=== PATIENT | female | born 1935 | race Caucasian/White ===

== ENCOUNTER 2023-11-02 16:08 | Emergency (ER) | payer OTHER, SELFPAY ==
[2023-11-02 16:10] VITALS: BP 108/48
[2023-11-02 18:32] VITALS: BP 120/51
[2023-11-02 18:39] VITALS: BP 125/62
[2023-11-02 19:00] VITALS: BP 100/55
--- NOTE | 2023-11-02 19:09 | ED.GENMED ---
History of Present Illness
General
Chief Complaint: Blood Pressure Problem
Source: patient
Exam Limitations: none
Time Seen by Provider: 11/02/23 18:55
History of Present Illness
History of Present Illness:
See MDM
Past History
Past History
ED Past Medical History: HTN, Hypercholesterolemia, Hypothyroidism and Other (Spinal stenosis and scoliosis)
ED Past Surgical History: Appendectomy, Gynecological (Hysterectomy) and Orthopedic (Bilateral knee replacement, left hip replacement, spinal stimulator)
Social History
Tobacco: Non-smoker
Alcohol: None
Drug: None
Personal:
Living: with family
Employment: Retired
Phy Exam
Physical Exam
Physical Exam:
See MDM
Course
Orders/Labs/Results
Orders:
Orders
11/02/23 16:13
Electrocardiogram (*1) Urgent
Reason for Study: Vertigo / Dizzy
EKG- Treatment ONCE
11/02/23 19:16
CMP [Comprehensive Metabolic Panel] Urgent
Complete Blood Count/With Diff Urgent
Urinalysis Reflex To Culture Urgent
Date Specimen was Collected: 11/02/23
Time Specimen was Collected: 19:13
Urine Microscopic Reflex Cult Urgent
Urine Culture Urgent
VONDA Source: U
Specimen Description:
Date Specimen was Collected: 11/02/23
Time Specimen was Collected: 19:13
11/02/23 20:13
CefTRIAXone [Rocephin] 1,000 mg IV NOW STA
Abnormal Lab Results
11/02/23
19:16
WBC 13.4 H 10^3/uL
(4.8-10.8)
RBC 2.44 L 10^6/uL
(4.20-5.40)
Hgb 8.7 L g/dL
(12.0-16.0)
Hct 24.5 L %
(37.0-47.0)
MCV 100.4 H fL
(81.0-99.0)
MCH 35.7 H pg
(27.0-31.0)
Plt Count 127 L 10^3/uL
(130-400)
MPV 11.0 H fL
(7.4-10.4)
Abs Immat Gran (auto) 0.1 H 10^3/uL
(0-0.05)
Absolute Neuts (auto) 12.0 H 10^3/uL
(1.4-6.5)
Absolute Lymphs (auto) 0.3 L 10^3/uL
(1.2-3.4)
Absolute Monos (auto) 1.0 H 10^3/uL
(0.1-0.6)
Neutrophils % 89.4 H %
(42.2-75.2)
Lymphocytes % 1.9 L %
(20.5-51.1)
Sodium 133 L mmol/L
(135-145)
Carbon Dioxide 20 L mmol/L
(22-30)
BUN 53 H mg/dl
(7-17)
Creatinine 2.3 H mg/dL
(0.6-1.0)
Glucose 116 H mg/dl
(70-99)
AST 40 H U/L
(14-36)
Total Protein 5.8 L g/dl
(6.3-8.2)
Ur Occult Blood Reflex Trace A
(Negative)
Leukocyte Esterase Rfl 2+ A
(Negative)
Urine WBC (Reflex) >100 A /HPF
(0-5)
Urine Albumin (Reflex) 2+ A
(Neg - Trace)
11/02/23 19:16
11/02/23 19:16
Vital Signs
Initial and Last Documented VS:
Initial Vital Signs
Temp Pulse Resp BP Pulse Ox
99.3 F 66 18 108/48 95
11/02/23 16:10 11/02/23 16:10 11/02/23 16:10 11/02/23 16:10 11/02/23 16:10
Last Documented Vital Signs
Temp Pulse Resp BP Pulse Ox
99.3 F 73 24 113/50 93
11/02/23 16:10 11/02/23 20:00 11/02/23 20:00 11/02/23 20:00 11/02/23 20:00
MDM/Problems Addressed
Differential Diagnosis Includes:
HPI and MDM Narrative:
88-year-old female presenting with lightheadedness. Patient was taking her blood pressure noted that she had a couple readings around 100 systolic. Patient got concerned and came to the emergency department. She states that the dizziness is
random and not necessarily worse with exertion or position. When asked to explain the dizziness, she denies vertiginous symptoms. She states it is more like a lightheadedness feeling. This is also associated with increased urinary frequency and
burning. Patient is concerned she could have a UTI
Physical exam
General: Well appearing and non-toxic
HEENT: protecting airway
Neck: appears supple
CV: No evidence of cyanosis. Regular rate and rhythm
Resp: No accessory muscle use. Lungs clear
Abd: Non-distended and nontender
Extremities: No deformities
Neuro: alert
Psych: Normal affect
Skin: Intact
Problems Addressed including Acute and Chronic Conditions affecting care:
1. Lightheadedness
Acuity: acute
Prognosis: stable
Details: Likely in the setting of polypharmacy versus UTI. Will obtain basic blood work
2. Increased urinary frequency
Acuity: acute
Prognosis: stable
Details: Will obtain urinalysis to assess for UTI
Updates
Urine consistent with urinary tract infection. Will give dose of Rocephin. I discussed my concern that her creatinine has doubled. I suggested admission. Patient acknowledges my concerns but does not want a be admitted. Will start antibiotics
but discussed she must call her primary care doctor tomorrow to have this reassessed
Differential Diagnosis (but not limited to): UTI, polypharmacy, dehydration
Testing considered: Troponin but she denies chest pain or shortness of breath
Drug therapy (if applicable): OTC meds, please see d/c instruction regarding Rx drugs
Amount and/or Complexity of Data Reviewed
Clinical info obtained from: Patient
External data reviewed: N/A
Labs I independently reviewed (but not limited to): Elevated creatinine
Radiology: N/A
Pulse Ox: not hypoxic
EKG independently reviewed: Sinus rhythm, sinus arrhythmia, normal axis, no STEMI
Tracer Lathe Set Up Operator: Sinus rhythm
Critical Care: N/A
Risk of Complication:
Social Determinants of health: Good social support
Discussed with other providers: N/A
Escalation of Care includes Admit/Obs: After being observed in the Emergency Department, pt stable for discharge.
Occasional wrong word or 'sound a like' substitutions may have occurred due to the inherent limitations of voice recognition software. Read the chart carefully and recognize, using context, where substitutions have occurred.
*Critical Care Note
Total Time (30-74mins, 75-104mins- exclusive of procedures): Not Applicable
ED Attending Note
-
Portions of this chart may have been created with voice recognition software.� Occasional wrong word or��sound alike� substitutions may have occurred due to the inherent limitations of voice recognition software.
Discharge Plan
Departure
Patient Disposition: Home (Routine Discharge)
Date of Disposition: 11/02/23
Time of Disposition: 20:15
Patient with high blood pressure during this ER visit?: No
Discharge Problem:
Acute UTI, DAVID (acute kidney injury)
Instructions: Urinary Tract Infection, Adult ED
Prescriptions:
New
cephalexin 500 mg capsule
500 mg PO BID 5 Days Qty: 10 0RF
No Action
carvedilol 25 mg Tablet
25 mg PO BID
sulfasalazine 500 mg Tablet
1,000 mg PO TID
terazosin 1 mg Capsule
1 mg PO HS
leflunomide 20 mg Tablet
20 mg PO DAILY
levothyroxine 50 mcg Tablet
50 mcg PO DAILY
pravastatin 20 mg Tablet
20 mg PO DAILY
oxycodone 5 mg Tablet
5 mg PO Q8H PRN (Reason: moderate-severe pain)
Patient Comments:
11/14/2021: last filled 09/12/21, 90 tabs for [facility] days from [facility]
lisinopril 20 mg Tablet
20 mg PO BID
furosemide 40 mg Tablet
40 mg PO DAILY
Eliquis 5 mg Tablet
5 mg PO BID
omeprazole 20 mg Capsule,Delayed Release(Dr/Ec)
20 mg PO DAILY
prednisone 5 mg Tablet
5 mg PO DAILY 30 Days Qty: 30 0RF
tamsulosin 0.4 mg Capsule
0.4 mg PO DAILY 30 Days Qty: 30 2RF
Referrals:
Ada Soliz MD [Family Provider] -
Activity Restrictions/Additional Instructions:
Please return for any worsening symptoms.
You may return at any time if you have further concerns.
Please call your doctor first thing tomorrow. Please indicate that your kidney levels have doubled. This needs to be rechecked. Please also discuss your low blood pressure. Until you are evaluated by your doctor, please decrease your lisinopril
to 10 mg twice a day.
Thank you for choosing [facility].
Interventions
Interventions:
*Risk Screen - Suicide Last Done: 11/02/23 18:40
*General Assessment Last Done: 11/02/23 16:10
*Neglect/Abuse Screening Last Done: 11/02/23 18:40
*ED COVID-19 Vaccine History Last Done: 11/02/23 16:10
ED- Cardiac Assessment Last Done: 11/02/23 18:40
ED- Neurological Assessment Last Done: 11/02/23 18:40
ED- Pulmonary Assessment Last Done: 11/02/23 18:40
Discharge Date and Time
Print Language: ITALIAN
[2023-11-02 19:21] LABS: % Basophils 0.3 % (0-2); % Eosinophils 0.2 % (0-6); % Immature Granulocytes 0.5 % (0-0.5); % Lymphocytes 1.9 % (20.5-51.1); % Monocytes 7.7 % (1.7-9.3); % Neutrophils 89.4 % (42.2-75.2); Absolute Immature Granulocytes 0.1 10^3/uL (0-0.05); Absolute Lymphocytes 0.3 10^3/uL (1.2-3.4); Hematocrit 24.5 % (37.0-47.0); Hemoglobin 8.7 g/dL (12.0-16.0); Mean Corp Hgb Conc. 35.5 g/dL (33.0-37.0); Mean Corpuscular Hgb 35.7 pg (27.0-31.0); Mean Corpuscular Volume 100.4 fL (81.0-99.0); Nucleated Red Blood Cells % 0 %; Platelet Count 127 10^3/uL (130-400); Red Blood Cell Count 2.44 10^6/uL (4.20-5.40); Red Cell Dist. Width 13.5 % (11.5-14.5); White Blood Cell Count 13.4 10^3/uL (4.8-10.8)
[2023-11-02 19:22] LABS: Urine Albumin 2+ (Neg - Trace); Urine Bilirubin Negative (Negative); Urine Character Very Cloudy (Clear); Urine Color Yellow; Urine Glucose Negative (Negative); Urine Ketone Negative (Negative); Urine Leukocyte 2+ (Negative); Urine Nitrite Negative (Negative); Urine Occult Blood Trace (Negative); Urine Specific Gravity 1.015 (<1.030); Urine Urobilinogen Negative (Neg - 1+)
[2023-11-02 19:29] LABS: Urine Red Blood Cell 0-2 /HPF (0-2); Urine White Cell >100 /HPF (0-5)
[2023-11-02 19:30] VITALS: BP 125/47
[2023-11-02 19:36] LABS: ALT (SGPT) 21 U/L (0-35); AST (SGOT) 40 U/L (14-36); Albumin 3.9 g/dl (3.5-5.0); Alkaline Phosphatase 48 U/L (38-126); Blood Urea Nitrogen 53 mg/dl (7-17); Calcium 8.9 mg/dl (8.4-10.2); Carbon Dioxide 20 mmol/L (22-30); Chloride 101 mmol/L (98-107); Glucose 116 mg/dl (70-99); Potassium 3.5 mmol/L (3.5-5.1); Sodium 133 mmol/L (135-145); Total Bilirubin 0.9 mg/dl (0.2-1.3); Total Protein 5.8 g/dl (6.3-8.2); eGFR 19.94
[2023-11-02 20:00] VITALS: BP 113/50
[2023-11-02] MEDS: ROCEPHIN 1000 MG IV (20:19)
== END 2023-11-02 20:47 | disposition home or self-care (01) ==
LOC: EMR 16:08
PROVIDERS: Emergency Medicine; EMERGENCY PHYSICIAN Student in an Organized Health Care Education/Training Program; FAMILY PHYSICIAN Family Medicine
DX: N39.0 Urinary tract infection, site not specified (principal); R42 Dizziness and giddiness; N17.9 Acute kidney failure, unspecified; I10 Essential (primary) hypertension; E03.9 Hypothyroidism, unspecified; E78.00 Pure hypercholesterolemia, unspecified; M48.00 Spinal stenosis, site unspecified; M41.9 Scoliosis, unspecified; Z96.653 Presence of artificial knee joint, bilateral; Z96.642 Presence of left artificial hip joint; Z79.01 Long term (current) use of anticoagulants
CPT/HCPCS: 99284; 96374; 80053; 81003; 81015; 85025; 87077; 87086; 93005

== ENCOUNTER 2024-01-31 09:29 | Emergency (ER) | payer OTHER, SELFPAY ==
[2024-01-31] VITALS (12 sets, daily range): BP systolic 144–204; BP diastolic 39–72; PULSE 73; O2SAT 95; BMI 25.1
--- NOTE | 2024-01-31 09:48 | ED.GENMED ---
History of Present Illness
<Garland Bassett PA-C - Last Filed: 01/31/24 16:20>
General
Chief Complaint: Back Pain
Source: patient
Exam Limitations: none
Time Seen by Provider: 01/31/24 09:34
History of Present Illness
History of Present Illness:
88-year-old female presents with complaints of onset of lower back pain overnight last night. The pain radiates across the lower back but does not go down the legs. No associated bowel or bladder dysfunction. No known injury. She has a history
of scoliosis. She typically ambulates with a walker. She is from home where she lives with her . She was unable to ambulate today secondary to the pain. She took a total of 20 mg of oxycodone at home prior to coming here without relief.
Past History
<LIZZ Alexis Last Filed: 01/31/24 16:20>
Past History
ED Past Medical History: HTN, Hypercholesterolemia, Hypothyroidism and Other (Spinal stenosis and scoliosis)
ED Past Surgical History: Appendectomy, Gynecological (Hysterectomy) and Orthopedic (Bilateral knee replacement, left hip replacement, spinal stimulator)
Social History
Tobacco: Non-smoker
Alcohol: None
Drug: None
Personal:
Living: with family
Employment: Retired
Phy Exam
<LIZZ Alexis Last Filed: 01/31/24 16:20>
Physical Exam
Physical Exam:
General: Uncomfortable appearing female no acute respiratory distress
HEENT: Normocephalic atraumatic
Heart: Regular rate and rhythm no murmurs
Lungs: Clear no wheeze
Abdomen is soft nontender nondistended no guarding rebound
Musculoskeletal exam: Lower lumbar spine is tender
Neurologic: Good sensation bilateral lower extremities.
Vascular: 2+ dorsalis pedis pulse bilateral feet
Course
<Garland Bassett PA-C - Last Filed: 01/31/24 16:20>
Orders/Labs/Results
Orders:
Orders
01/31/24 09:47
diazePAM [Valium Injection] 5 mg IV NOW STA
CR Lumbar Spine 2 Or 3 Views Urgent
Comment:
Reason For Exam: back pain
01/31/24 10:07
diazePAM [Valium Injection] 5 mg IM NOW STA
01/31/24 10:09
Ketorolac [Toradol] 15 mg IM NOW STA
01/31/24 10:19
Complete Blood Count/With Diff Urgent
Comprehensive Metabolic Panel Urgent
01/31/24 12:49
PT Consult [Pt Eval And Treat] Urgent
Activity Level: Ambulate
01/31/24 13:29
Case Management Consult ONCE
Case Management Consult: Discharge Planning
01/31/24 17:10
COVID-19 Antigen Urgent
Source: Nasal Swab
Abnormal Lab Results
01/31/24
10:19
RBC 2.68 L 10^6/uL
(4.20-5.40)
Hgb 9.7 L g/dL
(12.0-16.0)
Hct 28.4 L %
(37.0-47.0)
MCV 106.0 H fL
(81.0-99.0)
MCH 36.2 H pg
(27.0-31.0)
Plt Count 123 L 10^3/uL
(130-400)
MPV 11.5 H fL
(7.4-10.4)
Absolute Lymphs (auto) 0.3 L 10^3/uL
(1.2-3.4)
Neutrophils % 86.7 H %
(42.2-75.2)
Lymphocytes % 4.0 L %
(20.5-51.1)
BUN 57 H mg/dl
(7-17)
Creatinine 1.4 H mg/dL
(0.6-1.0)
Alkaline Phosphatase 35 L U/L
(38-126)
01/31/24 10:19
01/31/24 10:19
Vital Signs
Initial and Last Documented VS:
Initial Vital Signs
Temp Pulse Resp BP Pulse Ox
98.8 F 84 14 204/72 92
01/31/24 09:31 01/31/24 09:31 01/31/24 09:31 01/31/24 09:31 01/31/24 09:31
Last Documented Vital Signs
Temp Pulse Resp BP Pulse Ox
98.8 F 81 20 168/59 94
01/31/24 09:31 01/31/24 16:15 01/31/24 16:15 01/31/24 16:00 01/31/24 16:15
<Fracisco Wakefield PA-C - Last Filed: 01/31/24 17:39>
Orders/Labs/Results
Orders:
Orders
01/31/24 09:47
diazePAM [Valium Injection] 5 mg IV NOW STA
CR Lumbar Spine 2 Or 3 Views Urgent
Comment:
Reason For Exam: back pain
01/31/24 10:07
diazePAM [Valium Injection] 5 mg IM NOW STA
01/31/24 10:09
Ketorolac [Toradol] 15 mg IM NOW STA
01/31/24 10:19
Complete Blood Count/With Diff Urgent
Comprehensive Metabolic Panel Urgent
01/31/24 12:49
PT Consult [Pt Eval And Treat] Urgent
Activity Level: Ambulate
01/31/24 13:29
Case Management Consult ONCE
Case Management Consult: Discharge Planning
01/31/24 17:10
COVID-19 Antigen Urgent
Source: Nasal Swab
Abnormal Lab Results
01/31/24
10:19
RBC 2.68 L 10^6/uL
(4.20-5.40)
Hgb 9.7 L g/dL
(12.0-16.0)
Hct 28.4 L %
(37.0-47.0)
MCV 106.0 H fL
(81.0-99.0)
MCH 36.2 H pg
(27.0-31.0)
Plt Count 123 L 10^3/uL
(130-400)
MPV 11.5 H fL
(7.4-10.4)
Absolute Lymphs (auto) 0.3 L 10^3/uL
(1.2-3.4)
Neutrophils % 86.7 H %
(42.2-75.2)
Lymphocytes % 4.0 L %
(20.5-51.1)
BUN 57 H mg/dl
(7-17)
Creatinine 1.4 H mg/dL
(0.6-1.0)
Alkaline Phosphatase 35 L U/L
(38-126)
01/31/24 10:19
01/31/24 10:19
Vital Signs
Initial and Last Documented VS:
Initial Vital Signs
Temp Pulse Resp BP Pulse Ox
98.8 F 84 14 204/72 92
01/31/24 09:31 01/31/24 09:31 01/31/24 09:31 01/31/24 09:31 01/31/24 09:31
Last Documented Vital Signs
Temp Pulse Resp BP Pulse Ox
98.8 F 81 20 168/59 94
01/31/24 09:31 01/31/24 16:15 01/31/24 16:15 01/31/24 16:00 01/31/24 16:15
<Garland Bassett PA-C - Last Filed: 01/31/24 16:20>
MDM/Problems Addressed
Differential Diagnosis Includes:
Low back pain. This is acute. Consider degenerative disc disease versus compression fracture. No leg symptoms or neurologic symptoms or red flags to suggest cauda equina. She has good pulses to the feet. Do not suspect vascular issue
X-rays pending will attempt to manage this through IV. Labs pending
<Fracisco Wakefield PA-C - Last Filed: 01/31/24 17:39>
*Critical Care Note
Total Time (30-74mins, 75-104mins- exclusive of procedures): Not Applicable
<Fracisco Wakefield PA-C - Last Filed: 01/31/24 17:39>
Patient Management
Escalation/DeEscalation of care consider admission/obs:
Patient accepted at [facility]. Rx for valium given to patient for PRN pain. Awaiting transport.
<Garland Bassett PA-C - Last Filed: 01/31/24 16:20>
Update Note
Update Note:
X-ray shows no obvious fracture. Patient in significant pain despite 20 mg of oxycodone, Valium and Toradol. Evaluated by physical therapy. Unable to safely ambulate. Case management consulted
ED Attending Note
<Garland Bassett PA-C - Last Filed: 01/31/24 16:20>
-
Portions of this chart may have been created with voice recognition software.� Occasional wrong word or��sound alike� substitutions may have occurred due to the inherent limitations of voice recognition software.
Discharge Plan
Departure
Patient Disposition: Assisted Living
Date of Disposition: 01/31/24
Time of Disposition: 16:19
Patient with high blood pressure during this ER visit?: No
Discharge Problem:
Back pain
Instructions: Low Back Pain (DC)
Prescriptions:
New
diazepam [Valium] 5 mg tablet
5 mg PO BID PRN (Reason: muscle spasm) Qty: 10 0RF
No Action
carvedilol 25 mg Tablet
25 mg PO BID
sulfasalazine 500 mg Tablet
1,000 mg PO TID
terazosin 1 mg Capsule
1 mg PO HS
leflunomide 20 mg Tablet
20 mg PO DAILY
levothyroxine 50 mcg Tablet
50 mcg PO DAILY
pravastatin 20 mg Tablet
20 mg PO DAILY
oxycodone 5 mg Tablet
5 mg PO Q8H PRN (Reason: moderate-severe pain)
Patient Comments:
11/14/2021: last filled 09/12/21, 90 tabs [facility]
lisinopril 20 mg Tablet
20 mg PO BID
furosemide 40 mg Tablet
40 mg PO DAILY
Eliquis 5 mg Tablet
5 mg PO BID
omeprazole 20 mg Capsule,Delayed Release(Dr/Ec)
20 mg PO DAILY
prednisone 5 mg Tablet
5 mg PO DAILY 30 Days Qty: 30 0RF
tamsulosin 0.4 mg Capsule
0.4 mg PO DAILY 30 Days Qty: 30 2RF
cephalexin 500 mg capsule
500 mg PO BID 5 Days Qty: 10 0RF
Referrals:
Ada Soliz MD [Family Provider] -
Activity Restrictions/Additional Instructions:
Please seek further treatment at rehab facility.
Interventions
Interventions:
*Risk Screen - Suicide Last Done: 01/31/24 09:31
*General Assessment Last Done: 01/31/24 09:31
*Neglect/Abuse Screening Last Done: 01/31/24 09:31
ED- Fall Risk Assessment Last Done: 01/31/24 09:31
*ED COVID-19 Vaccine History Last Done: 01/31/24 09:31
ED-Musculoskeletal Assessment Last Done: 01/31/24 11:59
Discharge Date and Time
Print Language: ALBANIAN
[2024-01-31] MEDS: VALIUM INJECTION 5 MG IM (10:14)
[2024-01-31] MEDS: TORADOL 15 MG IM (10:16)
[2024-01-31 10:31] LABS: % Basophils 0.4 % (0-2); % Eosinophils 0.8 % (0-6); % Immature Granulocytes 0.3 % (0-0.5); % Monocytes 7.8 % (1.7-9.3); % Neutrophils 86.7 % (42.2-75.2); Absolute Eosinophils 0.1 10^3/uL (0-0.7); Absolute Lymphocytes 0.3 10^3/uL (1.2-3.4); Absolute Monocytes 0.6 10^3/uL (0.1-0.6); Absolute Neutrophils 6.3 10^3/uL (1.4-6.5); Hematocrit 28.4 % (37.0-47.0); Hemoglobin 9.7 g/dL (12.0-16.0); Mean Corp Hgb Conc. 34.2 g/dL (33.0-37.0); Mean Corpuscular Hgb 36.2 pg (27.0-31.0); Mean Platelet Volume 11.5 fL (7.4-10.4); Nucleated Red Blood Cells % 0 %; Platelet Count 123 10^3/uL (130-400); Red Blood Cell Count 2.68 10^6/uL (4.20-5.40); Red Cell Dist. Width 12.2 % (11.5-14.5); White Blood Cell Count 7.3 10^3/uL (4.8-10.8)
[2024-01-31 10:44] LABS: ALT (SGPT) 19 U/L (0-35); AST (SGOT) 32 U/L (14-36); Albumin 4.5 g/dl (3.5-5.0); Alkaline Phosphatase 35 U/L (38-126); Blood Urea Nitrogen 57 mg/dl (7-17); Calcium 9.6 mg/dl (8.4-10.2); Carbon Dioxide 22 mmol/L (22-30); Chloride 102 mmol/L (98-107); Estimated Creatinine Clearance 23 ml/min; Glucose 96 mg/dl (70-99); Potassium 3.8 mmol/L (3.5-5.1); Sodium 141 mmol/L (135-145); Total Bilirubin 1.1 mg/dl (0.2-1.3); Total Protein 6.4 g/dl (6.3-8.2); eGFR 36.19
--- NOTE | 2024-01-31 15:36 | CM ---
Spoke with patient and who was at bedside. Consult placed for placement. CM introduced self and role. CM discussed PT's recommendations. Patient and agreeable to referrals being placed at SNFs.
Referrals sent to:
[facility]
--- NOTE | 2024-01-31 16:59 | CM ---
Auth no. : [id number]
Verbal update hotline: for 5 days, including today, 01/30.
NRD: 02/03.
Mar[facility] at [facility] made aware.
REPORT:
Nursing report phone numbers are: [phone] and fax is [phone]
[2024-01-31 17:41] LABS: COVID-19 Antigen Negative (Negative)
[2024-01-31] MEDS: ROXICODONE 5 MG PO (19:09)
== END 2024-01-31 19:39 ==
LOC: EMR 09:29
PROVIDERS: Physician Assistant; Physician Assistant Medical; EMERGENCY PHYSICIAN Student in an Organized Health Care Education/Training Program; FAMILY PHYSICIAN Family Medicine
DX: M54.50 Low back pain, unspecified (principal); I10 Essential (primary) hypertension; E78.00 Pure hypercholesterolemia, unspecified; E03.9 Hypothyroidism, unspecified; Z90.49 Acquired absence of other specified parts of digestive tract; Z90.710 Acquired absence of both cervix and uterus; Z96.653 Presence of artificial knee joint, bilateral; Z96.642 Presence of left artificial hip joint; Z96.82 Presence of neurostimulator
CPT/HCPCS: 96372; 99284; 72100; 80053; 85025; 87811

== ENCOUNTER 2024-02-02 15:37 | Inpatient (IN) | payer OTHER, SELFPAY ==
[2024-02-02] VITALS (57 sets, daily range): BP systolic 69–145; BP diastolic 36–75; BMI 25.6; BMI 25.5
[2024-02-02 10:17] LABS: % Basophils 0.5 % (0-2); % Eosinophils 0.2 % (0-6); % Immature Granulocytes 0.9 % (0-0.5); % Lymphocytes 1.8 % (20.5-51.1); % Monocytes 4.1 % (1.7-9.3); % Neutrophils 92.5 % (42.2-75.2); Absolute Basophils 0.1 10^3/uL (0-0.2); Absolute Immature Granulocytes 0.1 10^3/uL (0-0.05); Absolute Lymphocytes 0.2 10^3/uL (1.2-3.4); Absolute Monocytes 0.5 10^3/uL (0.1-0.6); Absolute Neutrophils 10.2 10^3/uL (1.4-6.5); Hematocrit 25.9 % (37.0-47.0); Hemoglobin 8.8 g/dL (12.0-16.0); Mean Corpuscular Hgb 34.9 pg (27.0-31.0); Mean Corpuscular Volume 102.8 fL (81.0-99.0); Nucleated Red Blood Cells % 0 %; Platelet Count 98 10^3/uL (130-400); Red Blood Cell Count 2.52 10^6/uL (4.20-5.40); Red Cell Dist. Width 12.5 % (11.5-14.5)
[2024-02-02] MEDS: ZOFRAN 4 MG IV (10:30)
--- NOTE | 2024-02-02 10:30 | ED.GENMED ---
History of Present Illness
<Garland Bassett PA-C - Last Filed: 02/02/24 12:57>
General
Chief Complaint: Blood Pressure Problem
Source: patient
Exam Limitations: none
Time Seen by Provider: 02/02/24 10:16
History of Present Illness
History of Present Illness:
88-year-old female presents for reevaluation. I saw her several days ago for similar complaints of low back pain. Workup then was consistent with degenerative disc disease. She was unable to ambulate safely and was sent to [facility] for rehab.
She has yet to be on her feet at [facility] secondary to her significant pain in the lower back. Per usp she was hypoxic with a fever and hypotensive at their facility. Patient denies a cough. She is not requiring oxygen. She denies
any leg pain or urinary symptoms. She is nauseous. No other complaints at this time
Past History
<Garland Bassett PA-C - Last Filed: 02/02/24 12:57>
Past History
ED Past Medical History: HTN, Hypercholesterolemia, Hypothyroidism and Other (Spinal stenosis and scoliosis)
ED Past Surgical History: Appendectomy, Gynecological (Hysterectomy) and Orthopedic (Bilateral knee replacement, left hip replacement, spinal stimulator)
Social History
Tobacco: Non-smoker
Alcohol: None
Drug: None
Personal:
Living: with family
Employment: Retired
Phy Exam
<Garland Bassett PA-C - Last Filed: 02/02/24 12:57>
Physical Exam
Physical Exam:
General: Well-appearing female no acute respiratory distress
HEENT: Normocephalic atraumatic
Heart: Regular rate and rhythm
Lungs: Clear no obvious wheeze or rales
Abdomen soft tender to the flanks bilaterally no guarding rebound normal bowel sounds
Extremities: No cyanosis or edema
Skin is warm no rash
Sepsis
<Garland Bassett PA-C - Last Filed: 02/02/24 12:57>
Sepsis Screening
Sepsis Assessment: Sepsis
Sepsis Screen
Sepsis Screen: Sepsis
Date: 02/02/24
Time: 12:57
Course
<Garland Bassett PA-C - Last Filed: 02/02/24 12:57>
Orders/Labs/Results
Orders:
Orders
02/02/24 09:28
Electrocardiogram (*1) Urgent
Reason for Study: Other
Other Reason for Exam: Possible Sepsis
Cardiac Monitoring- Treatment ONCE
IV Insert/Care/Rem.- Treatment PRN
O2 Therapy [RESP] Urgent
Titrate/Wean O2 to maintain O2 sat greater than (%): 93
Special Instructions: TO MAINTAIN CONTINUOUS O2 SATS > OR = 93%
Pulse Ox/cont/shift [RESP] Urgent
Quantity: 1
Special Instructions: CONTINUOUS
02/02/24 09:29
EKG- Treatment ONCE
02/02/24 09:52
Complete Blood Count/With Diff Urgent
Comprehensive Metabolic Panel Urgent
Lactic Acid Q4H
Comment: ON ICE, CANCEL 2ND ORDER IF FIRST LACTIC ACID LEVEL <2
02/02/24 10:26
Ondansetron Injectable [Zofran] 4 mg IV NOW STA
CR Chest - 2 Views Urgent
Comment:
Reason For Exam: fever, hypoxia
02/02/24 10:27
CT Abd/pelvis Wo Iv Cont Urgent
Reason For Exam: flank pain
02/02/24 10:45
Urinalysis Reflex To Culture Urgent
Date Specimen was Collected: 02/02/24
Time Specimen was Collected: 10:41
02/02/24 11:54
Blood Culture Routine
VONDA Source: Blood/Venous
Specimen Description:
02/02/24 12:16
Blood Culture Urgent
VONDA Source: Blood/Venous
Specimen Description:
02/02/24 12:34
0.9% Sodium Chloride 1000 ml [Nss] 1,000 ml IV BOLUS
02/02/24 12:52
Hydrocortisone Sod Succinate [Solu-Cortef] 100 mg IV NOW STA
Piperacillin/Tazo 2.25 Gram [Zosyn] 2.25 grams in 50 ml IV NOW
02/02/24 14:00
VANCOMYCIN Pharmacy to Dose [VANCOCIN Pharmacy to Dose] 1 each Pharmacy To Prepare [Call Pharmacy To Prepare] 0 ml IV PER PROTOCOL
Abnormal Lab Results
02/02/24 02/02/24
09:52 10:45
WBC 11.0 H 10^3/uL
(4.8-10.8)
RBC 2.52 L 10^6/uL
(4.20-5.40)
Hgb 8.8 L g/dL
(12.0-16.0)
Hct 25.9 L %
(37.0-47.0)
MCV 102.8 H fL
(81.0-99.0)
MCH 34.9 H pg
(27.0-31.0)
Plt Count 98 L D 10^3/uL
(130-400)
MPV 12.0 H fL
(7.4-10.4)
Abs Immat Gran (auto) 0.1 H 10^3/uL
(0-0.05)
Absolute Neuts (auto) 10.2 H 10^3/uL
(1.4-6.5)
Absolute Lymphs (auto) 0.2 L 10^3/uL
(1.2-3.4)
Immature Gran % 0.9 H %
(0-0.5)
Neutrophils % 92.5 H %
(42.2-75.2)
Lymphocytes % 1.8 L %
(20.5-51.1)
Sodium 131 L D mmol/L
(135-145)
Chloride 95 L mmol/L
(98-107)
Carbon Dioxide 20 L mmol/L
(22-30)
BUN 58 H mg/dl
(7-17)
Creatinine 1.9 H mg/dL
(0.6-1.0)
Total Bilirubin 1.4 H mg/dl
(0.2-1.3)
AST 38 H U/L
(14-36)
Total Protein 5.5 L g/dl
(6.3-8.2)
Albumin 3.4 L g/dl
(3.5-5.0)
Urine Bilirubin 1+ A
(Negative)
02/02/24 09:52
02/02/24 09:52
Vital Signs
Initial and Last Documented VS:
Initial Vital Signs
Pulse Resp BP
80 21 119/55
02/02/24 09:28 02/02/24 09:28 02/02/24 09:28
Last Documented Vital Signs
Temp Pulse Resp BP Pulse Ox
97.5 F 87 17 125/46 94
02/02/24 12:00 02/02/24 11:00 02/02/24 11:00 02/02/24 11:00 02/02/24 11:00
<Riley Santos, DO - Last Filed: 02/02/24 12:56>
Orders/Labs/Results
Orders:
Orders
02/02/24 09:28
Electrocardiogram (*1) Urgent
Reason for Study: Other
Other Reason for Exam: Possible Sepsis
Cardiac Monitoring- Treatment ONCE
IV Insert/Care/Rem.- Treatment PRN
O2 Therapy [RESP] Urgent
Titrate/Wean O2 to maintain O2 sat greater than (%): 93
Special Instructions: TO MAINTAIN CONTINUOUS O2 SATS > OR = 93%
Pulse Ox/cont/shift [RESP] Urgent
Quantity: 1
Special Instructions: CONTINUOUS
02/02/24 09:29
EKG- Treatment ONCE
02/02/24 09:52
Complete Blood Count/With Diff Urgent
Comprehensive Metabolic Panel Urgent
Lactic Acid Q4H
Comment: ON ICE, CANCEL 2ND ORDER IF FIRST LACTIC ACID LEVEL <2
02/02/24 10:26
Ondansetron Injectable [Zofran] 4 mg IV NOW STA
CR Chest - 2 Views Urgent
Comment:
Reason For Exam: fever, hypoxia
02/02/24 10:27
CT Abd/pelvis Wo Iv Cont Urgent
Reason For Exam: flank pain
02/02/24 10:45
Urinalysis Reflex To Culture Urgent
Date Specimen was Collected: 02/02/24
Time Specimen was Collected: 10:41
02/02/24 11:54
Blood Culture Routine
VONDA Source: Blood/Venous
Specimen Description:
02/02/24 12:16
Blood Culture Urgent
VONDA Source: Blood/Venous
Specimen Description:
02/02/24 12:34
0.9% Sodium Chloride 1000 ml [Nss] 1,000 ml IV BOLUS
02/02/24 12:52
Hydrocortisone Sod Succinate [Solu-Cortef] 100 mg IV NOW STA
Piperacillin/Tazo 2.25 Gram [Zosyn] 2.25 grams in 50 ml IV NOW
02/02/24 14:00
VANCOMYCIN Pharmacy to Dose [VANCOCIN Pharmacy to Dose] 1 each Pharmacy To Prepare [Call Pharmacy To Prepare] 0 ml IV PER PROTOCOL
Abnormal Lab Results
02/02/24 02/02/24
10:45
WBC 11.0 H 10^3/uL
(4.8-10.8)
RBC 2.52 L 10^6/uL
(4.20-5.40)
Hgb 8.8 L g/dL
(12.0-16.0)
Hct 25.9 L %
(37.0-47.0)
MCV 102.8 H fL
(81.0-99.0)
MCH 34.9 H pg
(27.0-31.0)
Plt Count 98 L D 10^3/uL
(130-400)
MPV 12.0 H fL
(7.4-10.4)
Abs Immat Gran (auto) 0.1 H 10^3/uL
(0-0.05)
Absolute Neuts (auto) 10.2 H 10^3/uL
(1.4-6.5)
Absolute Lymphs (auto) 0.2 L 10^3/uL
(1.2-3.4)
Immature Gran % 0.9 H %
(0-0.5)
Neutrophils % 92.5 H %
(42.2-75.2)
Lymphocytes % 1.8 L %
(20.5-51.1)
Sodium 131 L D mmol/L
(135-145)
Chloride 95 L mmol/L
(98-107)
Carbon Dioxide 20 L mmol/L
(22-30)
BUN 58 H mg/dl
(7-17)
Creatinine 1.9 H mg/dL
(0.6-1.0)
Total Bilirubin 1.4 H mg/dl
(0.2-1.3)
AST 38 H U/L
(14-36)
Total Protein 5.5 L g/dl
(6.3-8.2)
Albumin 3.4 L g/dl
(3.5-5.0)
Urine Bilirubin 1+ A
(Negative)
02/02/24 09:52
02/02/24 09:52
Vital Signs
Initial and Last Documented VS:
Initial Vital Signs
Pulse Resp BP
80 21 119/55
02/02/24 09:28 02/02/24 09:28 02/02/24 09:28
Last Documented Vital Signs
Temp Pulse Resp BP Pulse Ox
97.5 F 87 17 125/46 94
02/02/24 12:00 02/02/24 11:00 02/02/24 11:00 02/02/24 11:00 02/02/24 11:00
<Garland Bassett PA-C - Last Filed: 02/02/24 12:57>
MDM/Problems Addressed
Differential Diagnosis Includes:
Patient with persistent lower back pain not hypoxic and reported fever at facility. She was apparently hypotensive at the facility and received 500 of fluids by EMS. She is normotensive here. Will expand workup including urinalysis CAT scan of
abdomen chest x-ray. Treat with Zofran for nausea
<Garland Bassett PA-C - Last Filed: 02/02/24 12:57>
*Critical Care Note
Total Time (30-74mins, 75-104mins- exclusive of procedures): Not Applicable
<Garland Bassett PA-C - Last Filed: 02/02/24 12:57>
Update Note
Update Note:
Reexamined. CT shows no obvious acute finding. Chest x-ray without pneumonia urinalysis negative. Patient's blood pressure did drop slightly here. She was given a liter fluid bolus. Discussed with physician at facility who reports she had a
temperature of 102 with hypotension at the facility. Discussed with emergency room attending. Will add antibiotics and stress dose steroids. Mid to hospital for further workup with cultures pending
ED Attending Note
<Garland Bassett PA-C - Last Filed: 02/02/24 12:57>
-
Portions of this chart may have been created with voice recognition software.� Occasional wrong word or��sound alike� substitutions may have occurred due to the inherent limitations of voice recognition software.
<Riley Santos DO - Last Filed: 02/02/24 12:56>
ED Attending Note
Patient seen and examined by attending physician: Yes
I performed the substantive portion of visit, reviewed & personally made and approve the management plan that is documented in note by myself or HAIM.: Yes
ED Attending Note:
Seen with PETRA examined independently ill-appearing elderly female apparently fever and low blood pressure at her facility, here initially normotensive then dropped her pressure, white count is up creatinine is up appears confused, she is on chronic
steroids, this complaint back pain, no obvious source of infection at this time, could be stress of steroids broad-spectrum antibiotics admission hospital sideration for special consultation advanced imaging, of note the patient does have a spinal
stimulator unclear if this would preclude MRI
Discharge Plan
Departure
Patient Disposition: Admit
Date of Disposition: 02/02/24
Time of Disposition: 12:56
Admit to: Telemetry
Presentation/result/management discussed w/ accepting MD/DO: Hospitalist
Discharge Problem:
Sepsis
Prescriptions:
No Action
carvedilol 25 mg Tablet
25 mg PO BID
sulfasalazine 500 mg Tablet
500 mg PO TID
leflunomide 20 mg Tablet
20 mg PO DAILY
levothyroxine 50 mcg Tablet
50 mcg PO DAILY
pravastatin 20 mg Tablet
20 mg PO DAILY
oxycodone 5 mg Tablet
5 mg PO Q8HPRN PRN (Reason: moderate-severe pain)
Patient Comments:
11/14/2021: last filled 09/12/21, 90 tabs [facility] from [facility]
lisinopril 20 mg Tablet
20 mg PO BID
furosemide 40 mg Tablet
40 mg PO DAILY
prednisone 5 mg Tablet
5 mg PO DAILY 30 Days Qty: 30 0RF
ascorbic acid (vitamin C) [Vitamin C] 1,000 mg Tablet
1,000 mg PO DAILY
terazosin 1 mg Capsule
1 mg PO HS
omeprazole [Prilosec] 20 mg Capsule,Delayed Release(Dr/Ec)
20 mg PO DAILY
folic acid 1 mg Tablet
1 mg PO DAILY
Caltrate 600 plus D 600 mg-20 mcg (800 unit) Tablet,Chewable
1 tab PO DAILY
biotin 1,000 mcg Tablet,Chewable
1,000 mcg PO DAILY
methotrexate 2.5 mg/mL Solution
2.5 mg PO TH
aspirin 81 mg Capsule
162 mg PO DAILY
acetaminophen 325 mg Tablet
650 mg PO Q4HPRN PRN (Reason: mild pain)
acetaminophen 500 mg Tablet
1,000 mg PO HS
magnesium hydroxide [Milk of Magnesia] 400 mg/5 mL Suspension
30 ml PO DAILYPRN PRN (Reason: if no bm x 2 days)
bisacodyl [Dulcolax (bisacodyl)] 10 mg Suppository
10 mg ME DAILYPRN PRN (Reason: if no bm in 8hrs after MOM)
Fleet Enema 19-7 gram/118 mL Enema
118 ml ME DAILYPRN PRN (Reason: if no bm 8 hrs after suppository)
oxycodone 10 mg Tablet
10 mg PO DAILY
lidocaine-menthol [Icy Hot Patch (lido-menthol)] 4-1 % Adhesive Patch,Medicated
1 patch TOPICAL DAILY
Rx Instructions:
apply to lower back
diazepam [Valium] 5 mg tablet
5 mg PO BIDPRN PRN (Reason: muscle spasm)
Referrals:
Abhi Keene MD [Family Provider] -
Interventions
Interventions:
*Risk Screen - Suicide Last Done: 02/02/24 09:39
*General Assessment Last Done: 02/02/24 09:39
*Neglect/Abuse Screening Last Done: 02/02/24 09:39
*ED COVID-19 Vaccine History Last Done: 02/02/24 09:39
ED- Cardiac Assessment Last Done: 02/02/24 09:47
ED- Neurological Assessment Last Done: 02/02/24 09:47
ED- Pulmonary Assessment Last Done: 02/02/24 09:47
Discharge Date and Time
Print Language: SERBIAN
[2024-02-02 10:35] LABS: Lactic Acid 1.6 mmol/L (0.7-2.0)
[2024-02-02 10:36] LABS: ALT (SGPT) 20 U/L (0-35); AST (SGOT) 38 U/L (14-36); Albumin 3.4 g/dl (3.5-5.0); Alkaline Phosphatase 41 U/L (38-126); Blood Urea Nitrogen 58 mg/dl (7-17); Calcium 8.8 mg/dl (8.4-10.2); Carbon Dioxide 20 mmol/L (22-30); Chloride 95 mmol/L (98-107); Estimated Creatinine Clearance 17 ml/min; Glucose 87 mg/dl (70-99); Potassium 3.6 mmol/L (3.5-5.1); Sodium 131 mmol/L (135-145); Total Bilirubin 1.4 mg/dl (0.2-1.3); Total Protein 5.5 g/dl (6.3-8.2); eGFR 25.08
[2024-02-02 10:58] LABS: Urine Albumin Trace (Neg - Trace); Urine Bilirubin 1+ (Negative); Urine Character Clear (Clear); Urine Color Yellow; Urine Glucose Negative (Negative); Urine Ketone Negative (Negative); Urine Leukocyte Negative (Negative); Urine Nitrite Negative (Negative); Urine Occult Blood Negative (Negative); Urine Specific Gravity 1.015 (<1.030); Urine Urobilinogen Negative (Neg - 1+)
[2024-02-02] MEDS: NSS 1000 IV (12:36)
[2024-02-02] MEDS: SOLU-CORTEF 100 MG IV (14:06)
[2024-02-02] MEDS: NSS 500 IV (14:13)
[2024-02-02] MEDS: ZOSYN 50 IV ×2 (14:14→21:06)
[2024-02-02] MEDS: LEVOPHED 250 IV ×2 (15:11→21:08)
--- NOTE | 2024-02-02 15:25 | CM ---
Patient seen at bedside with patient and physician/residents. Patient stated that patient had been here in ED and was transferred to [facility] on wednesday for STC. Patient is a [employer] patient and had authorization when discharged
from ED> Patient stated that they lived together in an apartment with an elevator. Patient stated that patient had a walker and wheelchair at home. Patient PCP is Dr. Soliz and she used [facility] [place]. Patient is
considering if he wants to hold patient bed. Patient indicated son Yfn [phone]. Patient on O2 and plan is for transfer to ICU per physician. Patient tearful but stated that he will call to patient son. CM called to [facility]
Home and updated Marium about plan for patient to stay and ICU placement. Patient aware that he would need to burr picker her belongings if she was not holding bed. Patient with extensive family support system. CM will continue to follow for
discharge planning needs.
Plan; return to SNF when medically appropriate.
--- NOTE | 2024-02-02 15:31 | PTCARENOTE ---
Pt given 1500ml IVF bolus for hypotension, BP not responding, 69/36, MD notified, Levophed started. Rosa placed. Rectal temp 102.3, requested Tylenol orders. Plans for ICU admit.
[2024-02-02] MEDS: TYLENOL/FEVERALL 650 MG RECTAL (16:02)
[2024-02-02] MEDS: VANCOCIN 300 ML IV (16:09)
[2024-02-02] MEDS: VANCOCIN 300 MG IV (16:09)
[2024-02-02 16:12] LABS: B.E. -6.2 mmol/L; HCO3 18.8 mmol/L (21-28); O2 Saturation % 98.1 % (94-98); PCO2 34 mmHg (32-35); PO2 251 mmHg (83-108); pH 7.35 (7.35-7.45)
[2024-02-02 16:29] LABS: Reticulocyte Count 4.2 % (0.4-2.8)
--- NOTE | 2024-02-02 16:49 | CON.INTV ---
Consultation
Consultation Request
Date/Time Consultation Requested: 02/02/2024 - 153
Date/Time Consultation Performed: 02/02/2024 - 160
Requesting Provider: Dr. Jones
Performing Provider: Dr. Lacy
Reason for Consultation: Shock
Medical History
-
Chief Complaint: Back pain + fever
History of Present Illness:
88-year-old female nontobacco smoker with a past medical history of chronic hyponatremia, rheumatoid arthritis on leflunomide, history of spinal stenosis, history of scoliosis, CKD, hypothyroidism, history of A-fib, hyperlipidemia and hypertension
who presents with back pain, and fever. She was recently here in the ER 2 days prior for lower back pain without bowel or bladder dysfunction and no prior injury. Pain was so bad she was unable to ambulate at that time. Lumbar XR showed moderate
to severe lumbar scoliosis with multilevel degenerative disc disease with no acute fracture. She continues to have significant lower back pain which is limiting her ambulation ability. In the ER she was afebrile to 98 �F, pulse rate 80, breathing
at 21 breaths/min, BP 119/55 and saturating 96% on 2 L/min nasal cannula. Labs showed mild leukocytosis to 11, anemia to 8.8, thrombocytopenia to 98, hyponatremic to 131, low serum chloride of 95, creatinine 1.9, lactate WNL at 1.6, T. bili
elevated at 1.4, AST 38, and urinalysis negative for UTI. Blood cultures were collected. CXR showed right midlung discoid atelectasis and small pleural effusions, and CT abdomen/pelvis (markedly limited study) showed small bilateral pleural
effusions with bibasilar subsegmental atelectasis with no intestinal obstruction or free air and redundant sigmoid colon with diverticulosis. In the ER she was given Solu-Cortef 100 mg, IVF with NS 0.9% x 1.5L, Zofran, Zosyn and then started on
Levophed due to persistent hypotension with SBP in the 60�70s. Given her need for vasopressors, she was admitted to the ICU for further care and log check scaler services consulted for additional management/recommendations.
When I saw the patient she was in bed, in no acute distress on nasal cannula at 6 L/min saturating 97%. Heart rate 75 and BP 89/55 on Levophed at 10mcg/min. , Connor, and son, Chuck, at bedside. All questions were answered. Patient is
awake, alert, and answering all questions. She says that with pain medications her back pain is tolerable. She denies chest pain, shortness of breath, SHAFER, abdominal pain, nausea, fevers or chills. She says that her spinal stimulator was placed
'years ago,' by a physician at [place]. She is not sure if it is MRI compatible. Her PCP is Dr. Soliz also at [place] where the remainder of her doctors are located.
PMHx: Chronic hyponatremia, hypertension, paroxysmal A-fib on Eliquis, hyperlipidemia, hypothyroidism, rheumatoid arthritis on leflunomide, hypothyroidism, history of spinal stenosis, history of scoliosis, CKD, mood disorder
PSHx: Hysterectomy, bilateral knee replacement, left hip replacement, spinal stimulator
Past Medical History
Past Medical History: Other (Above as per HPI)
Past Surgical History: Other (Above as per HPI)
Social History
Tobacco: Non-smoker
Alcohol: None
Drug: None
Personal:
Living: With Family
Family History
Family History: Reviewed & Not Pertinent
Allergies / Home Medications
Allergies
Allergy/AdvReac Type Severity Reaction Status Date / Time
No Known Allergies Allergy Verified 01/31/24 09:47
Home Medications
�Medication �Instructions �Recorded �Confirmed �Last Taken �Type
carvedilol 25 mg tablet 25 mg PO BID Blood pressure 11/14/21 02/02/24 1 Day Ago History
~11/14/21
am
leflunomide 20 mg tablet 20 mg PO DAILY Autoimmune disorder 11/14/21 02/02/24 1 Day Ago History
~11/14/21
levothyroxine 50 mcg tablet 50 mcg PO DAILY Thyroid 11/14/21 02/02/24 1 Day Ago History
~11/14/21
oxycodone 5 mg tablet 5 mg PO Q8HPRN PRN moderate-severe 11/14/21 02/02/24 Unknown History
pain
pravastatin 20 mg tablet 20 mg PO DAILY High cholesterol 11/14/21 02/02/24 1 Day Ago History
~11/14/21
sulfasalazine 500 mg tablet 500 mg PO TID Autoimmune disorder 11/14/21 02/02/24 1 Day Ago History
~11/14/21
am
lisinopril 20 mg tablet 20 mg PO BID Blood pressure 03/02/22 02/02/24 Unknown History
furosemide 40 mg tablet 40 mg PO DAILY 03/03/22 02/02/24 Unknown History
prednisone 5 mg tablet 5 mg PO DAILY 30 days #30 tabs 03/09/22 02/02/24 Unknown Rx
ascorbic acid (vitamin C) 1,000 mg 1,000 mg PO DAILY 01/31/24 02/02/24 Unknown History
tablet (Vitamin C)
aspirin 81 mg capsule 162 mg PO DAILY 01/31/24 02/02/24 Unknown History
biotin 1,000 mcg chewable tablet 1,000 mcg PO DAILY 01/31/24 02/02/24 Unknown History
calcium 600 mg (as carbonate)-vit 1 tab PO DAILY 01/31/24 02/02/24 Unknown History
D3 20 mcg (800 unit) chewable
tablet (Caltrate plus D)
folic acid 1 mg tablet 1 mg PO DAILY 01/31/24 02/02/24 Unknown History
methotrexate 2.5 mg/mL oral 2.5 mg PO TH 01/31/24 02/02/24 Unknown History
solution
omeprazole 20 mg capsule,delayed 20 mg PO DAILY 01/31/24 02/02/24 Unknown History
release
terazosin 1 mg capsule 1 mg PO HS 01/31/24 02/02/24 Unknown History
acetaminophen 325 mg tablet 650 mg PO Q4HPRN PRN mild pain 02/02/24 02/02/24 Unknown History
acetaminophen 500 mg tablet 1,000 mg PO HS 02/02/24 02/02/24 Unknown History
bisacodyl 10 mg rectal suppository 10 mg WI DAILYPRN PRN if no bm in 02/02/24 02/02/24 Unknown History
(Dulcolax (bisacodyl)) 8hrs after MOM
diazepam 5 mg tablet (Valium) 5 mg PO BIDPRN PRN muscle spasm 02/02/24 02/02/24 Unknown History
lidocaine 4 %-menthol 1 % topical 1 patch topical DAILY 02/02/24 02/02/24 Unknown History
patch (Icy Hot Patch
(lidocaine-menthol))
magnesium hydroxide 400 mg/5 mL 30 ml PO DAILYPRN PRN if no bm x 2 02/02/24 02/02/24 Unknown History
oral suspension (Milk of Magnesia) days
oxycodone 10 mg tablet 10 mg PO DAILY 02/02/24 02/02/24 Unknown History
sodium phosphates 19 gram-7 118 ml WI DAILYPRN PRN if no bm 8 02/02/24 02/02/24 Unknown History
gram/118 mL enema (Fleet Enema) hrs after suppository
Review of Systems
-
History Source: Patient
All other systems: Negative unless noted
Vitals / Labs / Diagnostic Testing
Vital Signs
Temp Pulse Resp BP Pulse Ox
102.3 F H 79 19 83/43 99
02/02/24 15:26 02/02/24 16:15 02/02/24 16:15 02/02/24 16:15 02/02/24 16:15
Lab Data
02/02/24 09:52
02/02/24 09:52
Laboratory Results
02/02/24
15:56
pH 7.35
pCO2 34
pO2 251 H
HCO3 18.8 L
O2 Delivery Level
Diagnostic Testing:
Physical Exam
-
HEENT: Normocephalic and Anicteric
Cardiovascular: S1/S2 and Peripheral Edema (negative)
Respiratory: Wheeze (negative), Rales (negative), Rhonchi (negative) and Non-Labored Respirations
GI: Soft, Non Distended, Non Tender and Normal Bowel Sounds
Neurology: Awake, Alert, Tremors (negative) and Other (Normal sensation to light touch in all extremities + plantarflexion in right foot 5/5, plantarflexion and left foot 4/5)
Skin: Warm and Dry
General: Respiratory Distress (negative), Comfortable, Fever (negative) and Chills (negative)
Assessment
-
Assessment: 88-year-old female nontobacco smoker with a past medical history of chronic hyponatremia, rheumatoid arthritis on leflunomide, history of spinal stenosis, history of scoliosis, CKD, hypothyroidism, history of A-fib, hyperlipidemia and
hypertension who presents with back pain, and fever. She was recently here in the ER 2 days prior for lower back pain without bowel or bladder dysfunction and no prior injury. Pain was so bad she was unable to ambulate at that time. Lumbar XR
showed moderate to severe lumbar scoliosis with multilevel degenerative disc disease with no acute fracture. She continues to have significant lower back pain which is limiting her ambulation ability. In the ER she was afebrile to 98 �F, pulse
rate 80, breathing at 21 breaths/min, BP 119/55 and saturating 96% on 2 L/min nasal cannula. Labs showed mild leukocytosis to 11, anemia to 8.8, thrombocytopenia to 98, hyponatremic to 131, low serum chloride of 95, creatinine 1.9, lactate WNL at
1.6, T. bili elevated at 1.4, AST 38, and urinalysis negative for UTI. Blood cultures were collected. CXR showed right midlung discoid atelectasis and small pleural effusions, and CT abdomen/pelvis (markedly limited study) showed small bilateral
pleural effusions with bibasilar subsegmental atelectasis with no intestinal obstruction or free air and redundant sigmoid colon with diverticulosis. In the ER she was given Solu-Cortef 100 mg, IVF with NS 0.9% x 1.5L, Zofran, Zosyn and then
started on Levophed due to persistent hypotension with SBP in the 60�70s. Given her need for vasopressors, she was admitted to the ICU for further care and log check scaler services consulted for additional management/recommendations.
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
Impression:
#Shock requiring vasopressors, suspected to be septic from unknown source however with severe lower back pain top differentials include discitis versus osteomyelitis versus other spinal pathology
#Acute respiratory failure with hypoxia likely due to sepsis with acute organ dysfunction
#DAVID superimposed on CKD (baseline Cr: 1.1-1.4)
#Severe lower back pain in the setting of moderate�severe lumbar scoliosis with multilevel degenerative disc disease
#Chronic anemia (baseline Hb 8 - 9.5g/dL)
#Iron-deficiency anemia
#Chronic thrombocytopenia (baseline plt 80-165)
#Chronic hyponatremia (baseline Na: 130-136)
#Transaminitis with elevated T. bili + AST
Plan:
- Broad spectrum Abx - currently on Zosyn s/p IV vanco x1 in ER
- We first need to confirm MRI compatibility of her spinal stimulator before MRI can be obtained. She is not sure who or when her spinal stimulator was placed but it was done at [place]. Obtain prior medical records from her PCP, Dr. Soliz -
hopefully we can check a MRI T and L spine to evaluate for source of sepsis
- Otherwise if MRI not feasible then would start with CT T/L spine without contrast (given her DAVID)
- Follow up blood cultures X2 (collected today)
- Treat fever with tylenol and keep <2g per 24 hrs
- Hold off on iron supplementation given concern for infection
- Continue vasopressors and wean down as tolerated to keep MAP>65
- Continue stress dose steroids with solu-cortef 50mg IV q6hr and wean as tolerated
- NPO until levophed requirements are <10mcg/min
- Pain control
- Continue supplemental O2 to maintain SpO2 >90-94%; wean down O2 as tolerated
- Trend sCr and renally dose all meds/Abx
- Trend LFTs
- Given the small bilateral pleural effusions, maintain net neutral to slightly net negative fluid balance, and check TTE
- Sodium and fluid restricted diet
- Replete electrolytes with K>4, Mg>2
- Maintain euglycemia with goal BG 140-180
- prn nebulized bronchodilators - pt not currently bronchospastic
- Incentive spirometer encouraged 10x per hour for at least 4 hrs a day
- DVT ppx
PICC team coming to bedside to insert midline vs PICC given inadequate IV access
Code status: DNR/DNI
Critical care statement: A total of 40 minutes of critical care time was provided for this patient today. This includes management of unstable vital signs, evaluation of the patient at bedside, reviewing the patient's pertinent medical records
including radiographs, microbiology, laboratory evaluations, and discussion with primary team, consultants, pharmacy, nutrition, physical therapy, case management, charge nurse, critical care nursing, and respiratory therapy.
Data:
CT Abd/Pelvis without contrast 02/02/2024:
MARKEDLY LIMITED STUDY as a result of numerous factors including marked beam hardening artifact from the patient's bilateral upper extremities, beam hardening artifact from left hip arthroplasty, lack of oral contrast and lack of intravenous
contrast.
Tiny bilateral pleural effusions and bilateral lower lobe subsegmental atelectasis which obscure tiny right lower lobe pulmonary nodule seen on prior CT.
Approximate 0.6 cm slightly high attenuation lesion laterally left kidney which could represent a complex/proteinaceous cyst or solid mass, cannot be differentiated on the basis of this study without intravenous contrast, indeterminate.
No intestinal obstruction or free air.
Redundant sigmoid colon with diverticulosis.
CXR 02/02/2024:
Right midlung discoid atelectasis.
Small bilateral pleural effusions.
[2024-02-02 16:58] LABS: Iron < 20 ug/dl (37-170)
[2024-02-02 17:02] LABS: Total Iron Binding Capacity 170 ug/dl (265-497)
[2024-02-02 17:17] LABS: COVID-19 Antigen Negative (Negative)
[2024-02-02 17:18] LABS: Osmolality Urine 340 mOsm/kg (300-900)
[2024-02-02 17:25] LABS: Urine Sodium 12 mmol/L (30-90)
[2024-02-02] MEDS: SODIUM BICARBONATE 1150 MEQ IV (17:45)
--- NOTE | 2024-02-02 18:22 | HPS.HSE ---
Addendum entered and electronically signed by Iris Meraz MD 02/02/24 21:23:
Allergies
Allergy/AdvReac Type Severity Reaction Status Date / Time
No Known Allergies Allergy Verified 01/31/24 09:47
Home Medications
carvedilol 25 mg tablet 25 mg PO BID Blood pressure 11/14/21
leflunomide 20 mg tablet 20 mg PO DAILY Autoimmune disorder 11/14/21
levothyroxine 50 mcg tablet 50 mcg PO DAILY Thyroid 11/14/21
oxycodone 5 mg tablet 5 mg PO Q8HPRN PRN moderate-severe pain 11/14/21
pravastatin 20 mg tablet 20 mg PO DAILY High cholesterol 11/14/21
sulfasalazine 500 mg tablet 500 mg PO TID Autoimmune disorder 11/14/21
lisinopril 20 mg tablet 20 mg PO BID Blood pressure 03/02/22
furosemide 40 mg tablet 40 mg PO DAILY 03/03/22
prednisone 5 mg tablet 5 mg PO DAILY 30 days #30 tabs 03/09/22
ascorbic acid (vitamin C) 1,000 mg tablet (Vitamin C) 1,000 mg PO DAILY 01/31/24
aspirin 81 mg capsule 162 mg PO DAILY 01/31/24
biotin 1,000 mcg chewable tablet 1,000 mcg PO DAILY 01/31/24
calcium 600 mg (as carbonate)-vit D3 20 mcg (800 unit) chewable tablet (Caltrate plus D) 1 tab PO DAILY 01/31/24
folic acid 1 mg tablet 1 mg PO DAILY 01/31/24
methotrexate 2.5 mg/mL oral solution mg PO TH 01/31/24
omeprazole 20 mg capsule,delayed release 20 mg PO DAILY 01/31/24
terazosin 1 mg capsule 1 mg PO HS 01/31/24
acetaminophen 325 mg tablet 650 mg PO Q4HPRN PRN mild pain 02/02/24
acetaminophen 500 mg tablet 1,000 mg PO HS 02/02/24
bisacodyl 10 mg rectal suppository (Dulcolax (bisacodyl)) 10 mg ND DAILYPRN PRN if no bm in 8hrs after MOM 02/02/24
diazepam 5 mg tablet (Valium) 5 mg PO BIDPRN PRN muscle spasm 02/02/24
lidocaine 4 %-menthol 1 % topical patch (Icy Hot Patch (lidocaine-menthol)) 1 patch topical DAILY 02/02/24
magnesium hydroxide 400 mg/5 mL oral suspension (Milk of Magnesia) 30 ml PO DAILYPRN PRN if no bm x 2 days 02/02/24
oxycodone 10 mg tablet 10 mg PO DAILY 02/02/24
sodium phosphates 19 gram-7 gram/118 mL enema (Fleet Enema) 118 ml ND DAILYPRN PRN if no bm 8 hrs after suppository 02/02/24
Addendum entered and electronically signed by Iris Meraz MD 02/02/24 20:11:
I personally performed a history and physical exam of the patient and discussed management with the resident. I reviewed the resident's note and agree with the documented findings and plan of care HPI/CC.
GENERAL: well developed, well nourished, ill appearing female--not verbal likely due to acuity
HEENT: NC/AT--on O2 nasal cannula but mouth breathing--dry mucous membranes
HEART: regular rate and rhythm, +S1, +S2
LUNGS : clear to auscultation bilaterally
ABDOM: soft, nontender, nondistended, + bowel sounds
EXT: no cyanosis, clubbing, or edema
NEUROLOGIC: not verbal
septic shock with metabolic acidosis and presumed TME from infection--unclear source of infection--CXR and CT scan without obvious source--possible UTI, with lethargy/change in MS, possible meningitis, encephalitis--most likely related to back pain
(presented to ED 2 days ago for that and now with fever) so discitis, abscess, etc should be considered--zulma in light of relative immunosuppression (chronic steroids, MTX, leflunamide)--ADMIT to ICU--cont IVF with bicarbonate, Levophed
started--check blood and urine cultures--check MRI spine--agree with zosyn/vanco--consult ID/supervisor benzene refining--stress dose steroids--consider LP if no improvement
acute hypoxemic resp failure--89% on NC (mouth breather)--place NRB mask--likely due to sepsis as no PNA on CXR--wean O2 as able--apprec pulm/supervisor benzene refining
DAVID--creat 2 days ago was 1.4 (now 1.9)--likely prerenal cause from hypotension with sepsis--NSAID use for back pain possible--cont IVF--check UA, urine osmolality, urine sodium--cont IVF--pompa placed--hold lisinopril--renal dose meds--if no
improvement, consult renal
hyponatremia--sodium 141 two days ago--now 131--acute drop could be due to sepsis, SIADH from back pain, adrenal insufficiency--cont IVF--follow--if no better, consult renal
anemia--likely of chronic disease--no signs of bleeding--iron and TIBC low--check TSH--ferritin pending--retic count elevated at 4.2--await B12 and folate levels--with fluid resuscitation HGB likely to drop--check Type and screen, may need
transfusion
change in MS/TME--could be related to narcotics for pain--takes oxycodone (hold)- hold valium as well--check head CT--treat underlying sepsis and follow--consider LP if no improvement
hypothyroid--hold levothyroxine for now--check TSH
rheumatoid arthritis/spinal stenosis--on prednisone, leflunamide, MTX, sulfasalazine--holding all--stress dose steroids--spinal stimulator
essential HTN -- hold all BP meds--currently on pressors
HLD--hold pravastatin
DVT proph--SCDs
code status -- DNR
Original Note:
Family Physician
-
Family Physician: Abhi Keene MD
Chief Complaint
-
Fever
back pain
History of Present Illness
88/F with past medical history of Rheumatoid arthritis(on leflunomide and methotrexate), Anemia of chronic disease(low iron,low TIBC), history of scoliosis and spinal stenosis, CKD, Hypothyroidism,HTN, A.fib presented to emergency department with
Fever and Low back pain.She [facility] Back pain was severe, constant, with no known aggravating factors and relieved with pain medicationsSBP was ranging in
70-80. She was.It was not associated with fever or bowel dysfunction.No history of fall was present.Lumbar xray done at that time showed scoliosis with multilevel degenerative disc disease . No fracture was noted.
She still has back pain and she has not been able to move around since Wednesday().
She had a high grade fever since last night(102F). She denies cough,flu, sob, diarrhea, vomiting, burning micturition. She had her blood pressures dropping,SBP was ranging in 70-80.
In the Er, when I saw her she had blood pressure in 70's, Fluid bolses were given, vasopressors were started and solumedrol bolus was given to maintain blood pressures.Chest xray was negative for pneumonia, abdominal Ct scan showed no source of
infection,UA was normal, TLC 11.5. She has a spinal stimulator placed many year ago.
Shifted to ICU for sepsis workup
Medical History
Past Medical History
Past Medical History: Reports HTN, Hypercholesterolemia, Hypothyroidism, Renal Failure (Serum creatinine increased by .5 in 3 days) and Other (Scoliosis, Rheumatoid Arthritis,Spinal stenosis,)
Additional Past Medical History:
paroxysmal A.fib
Past Surgical History: Reports Appendectomy, Gynocological (Hysterectomy) and Orthopedic (B/L knee replacement and left hip replacement)
Social History
Unable to obtain full social history at this time due to: Acuity
Tobacco: Non-smoker
Alcohol: None
Drug: None
Personal:
Living: With Family
Family History
Family History: Not pertinent and Unable to Obtain
Allergies / Home Medications
Allergies reflects when Allergies were last updated in [facility].
Home Medications with original date entered in [facility]
Allergy/Medication List:
No known allergies
Review of Systems
-
A 12 point ROS was completed and negative except as noted: Yes
Physical Exam
Vital Signs
Vital Signs
Temp Pulse Resp BP Pulse Ox
102.3 F H 76 16 115/75 98
02/02/24 16:00 02/02/24 18:00 02/02/24 18:00 02/02/24 18:00 02/02/24 18:00
Physical Exam
General: Appears in Distress, Pain, Fever and Cachectic
HEENT: Anicteric and Oxygen (6 liters)
Respiratory: Clear
Cardiac: S1/S2, Regular Rhythm and Other (no edema)
GI: Soft, Non Tender and Normal Bowel Sounds
Musculoskeletal: No Clubbing, No Cyanosis and No Edema
Neuro: Awake, Alert, Oriented and No Motor Deficits
Hematologic/Lymphatic: No Lymphadenopathy
Laboratory Results
-
02/02/24 09:52
02/02/24 09:52
Laboratory Results
pH 7.35 (7.35-7.45) 02/02/24 15:56
pCO2 34 mmHg (32-35) 02/02/24 15:56
pO2 251 mmHg (83-108) H 02/02/24 15:56
HCO3 18.8 mmol/L (21-28) L 02/02/24 15:56
Lactic Acid Cancelled 02/02/24 21:20
Total Bilirubin 1.4 mg/dl (0.2-1.3) H 02/02/24 09:52
AST 38 U/L (14-36) H 02/02/24 09:52
ALT 20 U/L (0-35) 02/02/24 09:52
Alkaline Phosphatase 41 U/L (38-126) 02/02/24 09:52
Impression/Plan
-
IMPRESSION:
Septic Shock requiring multiple fluid boluses and vasopressors. Metabolic acidosis and respiratory alkalosis, lactic acidosis,DAVID(1.9) superimposed on CKD (baseline Cr: 1.1-1.4),
Assessment
Sepsis
DAVID on CKD
Chronic Anemia
Hyponatremia
back pain
PLAN:
SEPSIS
Fulfills SIRS( Febrile, increased Wbc, Tachycardia, RR above 20), septic shock
Continue fluids
Start vasopressors
Follow blood cultures
MRI lumbar spine(Discitis/epidural abscess)
Continue zosyn and vancomycin
Consult ID
DAVID on CKD
baseline Cr: 1.1-1.4
currently 1.9
fluid resuscitation
possibly due to hypotension
Chronic Anemia
Iron studies
retic count
ferritin
stool for occult blood
Peripheral smear
Hyponatremia
Urine osmplality
serum osmolality
urine sodium
possibly due to pain (SIADH)
sepsis?
Back pain
As needed pain medication
PICC to give fluids
Code status: DNR/DNI
DVT = compression stockings
[2024-02-02 19:11] LABS: Osmolality Serum 286 mOsm/kg (275-300)
--- NOTE | 2024-02-02 19:31 | W.PN.SEPSIS ---
Sepsis
Vital Signs
Temp Pulse Resp BP Pulse Ox
102.3 F H 76 16 115/75 98
02/02/24 16:00 02/02/24 18:00 02/02/24 18:00 02/02/24 18:00 02/02/24 18:00
Physical Exam
Physical Exam:
A focused exam was performed after fluid resuscitation.
Capillary Refill
Bilateral Upper Extremity:
Monet Time: Less than 3 sec
Bilateral Lower Extremity:
Monet Time: Less than 3 sec
Pulse Evaluation
Bilateral Radial:
Pulse Evaluation: Present
Bilateral Dorsalis Pedis:
Pulse Evaluation: Present
--- NOTE | 2024-02-02 20:00 | PTCARENOTE ---
Received patient AAOx3, following commands, denying pain. SITKA b/l, brought in hearing aids to charge. Afib, 70s, normothermic. Titrating levo to maintain MAP>65, see flowsheets. On 6 liters nasal cannula saturating 99%, weaning as tolerated.
Lung sounds clear bilaterally, diminished in the bases. Abdomen soft, round, nontender, hypoactive bowel sounds. No BM yet this shift, NPO now with CL diet to start with breakfast. Rosa in place draining danielle urine. Right spinal stimulator, skin
intact. Scattered ecchymosis throughout b/l upper extremities. 2 PIVs patent, WNL. Bicarb and levo gtt ongoing. at bedside, updated. Call younger within reach.
[2024-02-02 20:27] LABS: Vitamin B12 937 pg/ml (239-931)
[2024-02-02] MEDS: SOLU-CORTEF 50 MG IV (23:29)
[2024-02-02] MEDS: HEPARIN 5000 UNITS SC (23:29)
--- NOTE | 2024-02-02 23:46 | PTCARENOTE ---
Patient assessment unchanged from previous, call yuonger within reach.
[2024-02-03] VITALS (82 sets, daily range): BP systolic 66–134; BP diastolic 40–96; BMI 25.9
[2024-02-03] MEDS: ZOSYN 50 IV ×4 (01:23→19:43)
[2024-02-03] MEDS: SODIUM BICARBONATE 1150 MEQ IV (04:17)
--- NOTE | 2024-02-03 04:20 | PTCARENOTE ---
Patient assessment unchanged from previous. Rosa care done and labs sent. Resting comfortably, call younger within reach.
[2024-02-03 04:37] LABS: % Basophils 0.2 % (0-2); % Immature Granulocytes 1.2 % (0-0.5); % Lymphocytes 1.4 % (20.5-51.1); % Monocytes 7.2 % (1.7-9.3); Absolute Immature Granulocytes 0.2 10^3/uL (0-0.05); Absolute Lymphocytes 0.2 10^3/uL (1.2-3.4); Absolute Monocytes 0.9 10^3/uL (0.1-0.6); Absolute Neutrophils 11.2 10^3/uL (1.4-6.5); Hemoglobin 7.1 g/dL (12.0-16.0); Mean Corp Hgb Conc. 35.5 g/dL (33.0-37.0); Mean Corpuscular Hgb 36.8 pg (27.0-31.0); Mean Corpuscular Volume 103.6 fL (81.0-99.0); Mean Platelet Volume 11.8 fL (7.4-10.4); Nucleated Red Blood Cells % 0 %; Platelet Count 86 10^3/uL (130-400); Red Blood Cell Count 1.93 10^6/uL (4.20-5.40); Red Cell Dist. Width 11.9 % (11.5-14.5); White Blood Cell Count 12.4 10^3/uL (4.8-10.8)
[2024-02-03 04:38] LABS: APTT 24.4 Sec (23.4-35.0); INR 1.51; PT 18.3 Sec (11.4-14.6)
[2024-02-03 04:52] LABS: ALT (SGPT) 23 U/L (0-35); AST (SGOT) 59 U/L (14-36); Albumin 2.5 g/dl (3.5-5.0); Alkaline Phosphatase 46 U/L (38-126); Blood Urea Nitrogen 54 mg/dl (7-17); Calcium 7.1 mg/dl (8.4-10.2); Carbon Dioxide 19 mmol/L (22-30); Chloride 94 mmol/L (98-107); Estimated Creatinine Clearance 19 ml/min; Glucose 219 mg/dl (70-99); Magnesium 1.8 mg/dl (1.6-2.3); Phosphorus 4.2 mg/dl (2.5-4.5); Potassium 3.2 mmol/L (3.5-5.1); Sodium 128 mmol/L (135-145); Total Bilirubin 1.3 mg/dl (0.2-1.3); Total Protein 4.5 g/dl (6.3-8.2); eGFR 28.67
[2024-02-03] MEDS: SOLU-CORTEF 50 MG IV (05:34)
[2024-02-03] MEDS: SYNTHROID 50 MCG PO (05:34)
[2024-02-03] MEDS: LEVOPHED 250 IV ×2 (05:41→18:31)
[2024-02-03] MEDS: KCL 270 MEQ IV (06:29)
[2024-02-03] MEDS: CALCIUM GLUCONATE 100 IV (06:31)
[2024-02-03] MEDS: LIDOCAINE 4% PATCH 1 PATCH TOPICAL (07:47)
[2024-02-03] MEDS: HEPARIN 5000 UNITS SC (07:47)
[2024-02-03] MEDS: PROTONIX IV 40 MG IV (07:47)
[2024-02-03] MEDS: NSS (PRESERVATIVE FREE) 10 ML IV (07:47)
--- NOTE | 2024-02-03 08:10 | W.PN.INTV ---
Today's Communication / Plan
Recommendations
Up OOB as tolerated
Successfully weaned off all vasopressors this morning
Transfuse 1 unit PRBC and follow-up CBC s/p transfusion
Maintain SpO2 >90-94%
Hold home immunosuppressive drugs including leflunomide + methotrexate
Stop stress dose steroids and resume home prednisone dose
As long as patient's Hb is stable with appropriate rise following transfusion today, then will downgrade out of ICU to telemetry - once transferred then Car Parker/Pulmonary service will sign off. Please reconsult if there are any additional
questions/concerns, or if patient's respiratory status deteriorates.
Assessment
-
Assessment: 88-year-old female nontobacco smoker with a past medical history of chronic hyponatremia, rheumatoid arthritis on leflunomide, history of spinal stenosis, history of scoliosis, CKD, hypothyroidism, history of A-fib, hyperlipidemia and
hypertension who presents with back pain, and fever. She was recently here in the ER 2 days prior for lower back pain without bowel or bladder dysfunction and no prior injury. Pain was so bad she was unable to ambulate at that time. Lumbar XR
showed moderate to severe lumbar scoliosis with multilevel degenerative disc disease with no acute fracture. She continues to have significant lower back pain which is limiting her ambulation ability. In the ER she was afebrile to 98 �F, pulse
rate 80, breathing at 21 breaths/min, BP 119/55 and saturating 96% on 2 L/min nasal cannula. Labs showed mild leukocytosis to 11, anemia to 8.8, thrombocytopenia to 98, hyponatremic to 131, low serum chloride of 95, creatinine 1.9, lactate WNL at
1.6, T. bili elevated at 1.4, AST 38, and urinalysis negative for UTI. Blood cultures were collected. CXR showed right midlung discoid atelectasis and small pleural effusions, and CT abdomen/pelvis (markedly limited study) showed small bilateral
pleural effusions with bibasilar subsegmental atelectasis with no intestinal obstruction or free air and redundant sigmoid colon with diverticulosis. In the ER she was given Solu-Cortef 100 mg, IVF with NS 0.9% x 1.5L, Zofran, Zosyn and then
started on Levophed due to persistent hypotension with SBP in the 60�70s. Given her need for vasopressors, she was admitted to the ICU for further care and pearl glue drier services consulted for additional management/recommendations.
Chronic conditions COUN[employer]ER: Chronic hyponatremia, hypertension, paroxysmal A-fib on Eliquis, hyperlipidemia, hypothyroidism, rheumatoid arthritis on leflunomide, hypothyroidism, history of spinal stenosis, history of scoliosis, CKD, mood disorder
Impression:
#Shock requiring vasopressors, suspected to be septic from unknown source however with severe lower back pain top differentials include discitis versus osteomyelitis versus other spinal pathology - shock state resolved
#Acute respiratory failure with hypoxia likely due to sepsis with acute organ dysfunction - hypoxia now resolved
#DAVID superimposed on CKD (baseline Cr: 1.1-1.4)
#Severe lower back pain in the setting of moderate�severe lumbar scoliosis with multilevel degenerative disc disease
#Acute on chronic anemia (baseline Hb 8 - 9.5g/dL) - suspect this to be dilutional as she is not actively bleeding, has no abd pain or nausea/vomiting and no rectal bleeding and no epistaxis/hemoptysis
#Iron-deficiency anemia
#Chronic thrombocytopenia (baseline plt 80-165)
#Chronic hyponatremia (baseline Na: 130-136)
#Transaminitis with elevated T. bili + AST
#RA on MTX, leflunomide and chronic prednisone at 5mg daily
Plan:
- Broad spectrum Abx - currently on Zosyn s/p IV vanco x1 in ER
- We first need to confirm MRI compatibility of her spinal stimulator before MRI can be obtained. She is not sure who or when her spinal stimulator was placed but it was done at [place]. Obtain prior medical records from her PCP, Dr. Soliz -
hopefully we can check a MRI T and L spine to evaluate for source of sepsis
- Dr. Reid Martinez with [facility] inserted her spinal stimulator --> will obtain medical records to see if we can find out more information about her spinal stimulator, as I called the office for Dr. Martinez and there was no
available records that showed he even saw her before or did her surgery
- In interim, check a CT T and L spine without contrast
- Follow up blood cultures X2 (collected 02/02/2024)
- Treat fever with tylenol and keep <2g per 24 hrs
- Hold off on iron supplementation given concern for infection
- I performed bedside PocUS and her IVC collapsibility is 16% with A-line predominant lung romero and preserved LVEF with no evidence of pericardial effusion --> this suggest that she is not hypovolemic; start midodrine with wean; stop IVF
- Patient has now been weaned off of vasopressors this morning.
- Stop stress dose steroids given her impeoved hemodynamics
- Stop bicarb drip as serum bicarb level is >18
- Okay for regular diet now that she is off vasopressors
- Pain control
- Maintain SpO2 >90-94%
- Trend sCr and renally dose all meds/Abx
- Trend LFTs
- Given the small bilateral pleural effusions, maintain net neutral to slightly net negative fluid balance, and check TTE
- Sodium and fluid restricted diet
- Transfuse as needed to keep Hb>7g/dL and plt>20k
- 1 unit PRBC being transfused today given drop in Hb to 7.1 from 8.8 yesterday despite no clinical signs of bleeding
- I spoke with the patient's PCP office today (spoke with Dr. Tanner) and patient's home dose of MTX is: 10mg once a week
- Replete electrolytes with K>4, Mg>2
- Maintain euglycemia with goal BG 140-180
- prn nebulized bronchodilators - pt not currently bronchospastic
- Incentive spirometer encouraged 10x per hour for at least 4 hrs a day
- DVT ppx: SCDs for now; hold chemical DVT ppx for now given acute drop in Hb this AM
IV access: Right brachial vein dual-lumen PICC (inserted by PICC team on 02/02/2024)
Code status: DNR/DNI
As long as patient's Hb is stable with appropriate rise following transfusion today, then will downgrade out of ICU to telemetry - once transferred then Car Parker/Pulmonary service will sign off. Thank you for allowing us to be involved in the
care of this patient. Please reconsult if there are any additional questions/concerns, or if patient's respiratory status deteriorates.
Data:
CT Abd/Pelvis without contrast 02/02/2024:
MARKEDLY LIMITED STUDY as a result of numerous factors including marked beam hardening artifact from the patient's bilateral upper extremities, beam hardening artifact from left hip arthroplasty, lack of oral contrast and lack of intravenous
contrast.
Tiny bilateral pleural effusions and bilateral lower lobe subsegmental atelectasis which obscure tiny right lower lobe pulmonary nodule seen on prior CT.
Approximate 0.6 cm slightly high attenuation lesion laterally left kidney which could represent a complex/proteinaceous cyst or solid mass, cannot be differentiated on the basis of this study without intravenous contrast, indeterminate.
No intestinal obstruction or free air.
Redundant sigmoid colon with diverticulosis.
CXR 02/02/2024:
Right midlung discoid atelectasis.
Small bilateral pleural effusions.
Total time spent today was 55 minutes for this encounter. Time includes reviewing laboratory test/imaging results, reviewing pertinent medical records, obtaining and reviewing medical history, performing an appropriate exam, ordering medications,
tests and procedures. Time also includes documentation of this encounter, coordinating patient care and communicating with other healthcare professionals. Total time does not include separately billed tests performed on this date of service.
Subjective Dataa
Subjective Data
Date of Service:
Date of Service: February 03, 2024
Chief Complaint: Car Parker Follow Up
Subjective:
Patient was seen and evaluated this morning. Hb low this morning of 7.1 with no active signs of bleeding. Had a small BM this morning which was a smear and brown. She is saturating 93% on room air, heart rate 69 and BP 100/63. Vasopressors are
now off since this morning at around 8:30 AM. Still having lower back pain with movement. She denies SOB, CP, SHAFER, abd pain, N/V/f/c.
Review of Systems
General: Other (Negative unless mentioned above)
Objective Data
Data Reviewed
Vital Signs / I&O / Oxygen:
Vital Signs
Temp Pulse Resp BP Pulse Ox
97.5 F 69 16 85/53 93
02/03/24 07:50 02/03/24 09:00 02/03/24 09:00 02/03/24 09:00 02/03/24 09:00
Intake and Output
02/02/24 02/03/24 02/04/24
06:59 06:59 06:59
Intake Total 4743.3 / 4922.1 400.1 / 400.1
Output Total 1226 / 1326 200 / 200
Balance 3517.3 / 3596.1 200.1 / 200.1
SaO2 93
Nasal Cannula flow liters per 1
minute
Physical Exam
General: Respiratory Distress (negative), Comfortable, Chills (negative) and Sweats (negative)
HEENT: Normocephalic and Anicteric
Cardiovascular: Irregular Rhythm (Irregularly irregular) and Peripheral Edema (negative)
Respiratory: Wheeze (negative), Crackles (negative), Rhonchi (negative) and Non-Labored Respirations
GI: Soft, Non Distended, Non Tender and Normal Bowel Sounds
Neurology: AO x 3 and Tremors (negative)
Skin: Warm, Dry, Cyanosis (negative) and Jaundice (negative)
Labs/Micro/Reports
Lab Data
02/03/24 04:11
Laboratory Results
02/02/24 02/03/24
15:56 04:11
PT 18.3 H
INR 1.51
APTT 24.4
pH 7.35
pCO2 34
pO2 251 H
HCO3 18.8 L
O2 Delivery Level
Microbiology
02/02/24 16:15 Nasal Swab Influenza Types A & B (KENN) - Final
Negative for Influenza A & B, NAAT
Negative results must be combined with clinical observations
and patient history.
Nucleic Acid Amplification test (NAAT)performed on the
[employer] platform.
--- NOTE | 2024-02-03 08:14 | CON.ID ---
Consultation
-
Date/Time Consultation Requested: 02/02/2024 1720
Date/Time Consultation Performed: 02/03/2024 0755
Requesting Provider: Dr. Gardner
Performing Provider: Dr. Valentin
Reason for Consultation: Clinical sepsis
Chief Complaint / Past History
History of Present Illness
Halina Dawn is an 88-year-old female being evaluated at the request of Dr. Gardner regarding clinical sepsis. History is obtained from chart review, along with patient interview.
The patient has a significant past medical history of RA, maintained on leflunomide and methotrexate.
She initially presented to the emergency room on 01/31/2024 with complaints of low back pain. She has a known history of severe scoliosis with spinal stimulator in place for chronic pain. Despite narcotic pain medication she did not receive any
relief and presented to the emergency room for further evaluation. Workup was negative, and she was discharged back to the assisted living facility.
She presents back to the emergency room on 02/01 after being found hypoxic, hypotensive and febrile at the assisted living. Workup in the ER revealed a low-grade leukocytosis. Additionally, patient was found to be febrile via rectal temperature
(although not febrile with oral temperatures). Empiric antibiotics have been initiated (Zosyn). Patient was started on norepinephrine for blood pressure support, but as of the present moment, it has been weaned to off.
Currently the patient denies any headache. She denies any current fevers or chills. She does not recall feeling febrile prior or during this admission. She notes her low back pain is somewhat improved. She denies any cough or congestion. She
denies any dysuria.
Past History
Additional Past Medical History:
Hypertension
Dyslipidemia
Hypothyroidism
Spinal stenosis
Severe lumbar scoliosis
Rheumatoid arthritis
Hemorrhoids
Additional Past Surgical History:
Appendectomy
Hysterectomy
Bilateral knee replacement
Left hip replacement
Spinal stimulator placement
Allergy History:
No Known Allergies Allergy (Verified 01/31/24 09:47)
Medications Reviewed: Yes
Social History
Tobacco: Non-Smoker
Alcohol: None
Drug: None
Personal:
Living: Assisted Living
Employment: Retired
Family History
Family History: Not Pertinent
Review of Systems
Vital Signs
Temp Pulse Resp BP Pulse Ox
97.5 F 73 16 90/66 93
02/03/24 07:50 02/03/24 08:11 02/03/24 08:11 02/03/24 08:11 02/03/24 08:11
Physical Exam
Physical Exam
Constitutional: No Acute Distress, Comfortable and Non-toxic
Eyes: Pupils Equal, No Conjunctival Hemorrhage and Sclera Anicteric
Oral: No Thrush and No Ulcers
Cardiovascular: S1/S2; Negative S3/S4 or Murmur
Pulmonary: Clear and Non Labored
Gastrointestinal: Soft, Non Tender, Non Distended, Normal Bowel Sounds, No Rebound and No Guarding
Extremities: Negative Edema, Cyanosis or Erythema
Neurological: Awake and Alert
Psychological: Calm
.
Lab / Diagnostic Study Results
02/03/24 04:11
Abs Immat Gran (auto) 0.2 10^3/uL (0-0.05) H 02/03/24 04:11
Absolute Neuts (auto) 11.2 10^3/uL (1.4-6.5) H 02/03/24 04:11
Absolute Lymphs (auto) 0.2 10^3/uL (1.2-3.4) L 02/03/24 04:11
Absolute Monos (auto) 0.9 10^3/uL (0.1-0.6) H 02/03/24 04:11
Absolute Basos (auto) 0.0 10^3/uL (0-0.2) 02/03/24 04:11
Immature Gran % 1.2 % (0-0.5) H 02/03/24 04:11
Neutrophils % 90.0 % (42.2-75.2) H 02/03/24 04:11
Lymphocytes % 1.4 % (20.5-51.1) L 02/03/24 04:11
Monocytes % 7.2 % (1.7-9.3) 02/03/24 04:11
Eosinophils % 0.0 % (0-6) 02/03/24 04:11
Basophils % 0.2 % (0-2) 02/03/24 04:11
PT 18.3 Sec (11.4-14.6) H 02/03/24 04:11
INR 1.51 02/03/24 04:11
Lactic Acid Cancelled 02/03/24 06:00
Microbiology Results
Micro:
02/02/24 16:15 Influenza Types A & B (KENN) - Final
Nasal Swab Negative for Influenza A & B, NAAT
Negative results must be combined with clinical observations
and patient history.
Nucleic Acid Amplification test (NAAT)performed on the
[employer] platform.
02/02/24 12:47 Blood Culture - Pending
Blood/Venous
02/02/24 12:16 Blood Culture - Pending
Blood/Venous
Imaging:
02/02/2024 CXR (portable): New right upper extremity PICC line in place. Mild cardiomegaly. Severe multilevel discogenic degenerative disease. Osteoporosis noted. Lung volumes are normal. Mild amount of scarring or subsegmental atelectasis in
the left lower lung. No focal airspace opacities noted. Please see full dictation for additional detail. Film personally viewed.
02/02/2024 CT abdomen/pelvis: MARKEDLY LIMITED STUDY as a result of numerous factors including marked beam hardening artifact from the patient's bilateral upper extremities, beam hardening artifact from left hip arthroplasty, lack of oral contrast
and lack of intravenous contrast. Tiny bilateral pleural effusions and bilateral lower lobe subsegmental atelectasis which obscure tiny right lower lobe pulmonary nodule seen on prior CT. Approximate 0.6 cm slightly high attenuation lesion
laterally left kidney which could represent a complex/proteinaceous cyst or solid mass, cannot be differentiated on the basis of this study without intravenous contrast, indeterminate. No intestinal obstruction or free air. Redundant sigmoid colon
with diverticulosis. See full dictation for additional detail. Film personally viewed.
Assessment / Plan
Clinical sepsis; improved
Leukocytosis
Fever; improved
Thrombocytopenia
DAVID
Hypertension
Dyslipidemia
Hypothyroidism
Spinal stenosis
Severe lumbar scoliosis
Rheumatoid arthritis
Hemorrhoids
Recommendations:
Overall, patient appears clinically improved from admission. Pressors have been weaned to off.
Fever has improved.
Will continue with empiric Zosyn for now while blood cultures are pending, but if cultures remain negative will discontinue empiric antibiotics.
Continue to monitor white count and temperature curve.
Continue with supportive measures.
--- NOTE | 2024-02-03 08:21 | PTCARENOTE ---
Levophed and O2 weaned off. VSS.
--- NOTE | 2024-02-03 08:30 | PTCARENOTE ---
Assumed care of patient at 0700. Patient alert and oriented. [place]. Assisted in placing on b/l hearing aids. Afib on tele monitor. Rate controlled. Lung sounds cta. Weaned from 2Lnc to RA. +BS. Rosa in place for critical I/O. Vitals stable. Levophed
infusing through right dual lumen PICC. Weaned off at 0822. Repositioned for comfort in bed. C/o back pain with movement. Lidocaine patch applied as ordered.
[2024-02-03 09:48] LABS: Hematocrit 20.5 % (37.0-47.0); Hemoglobin 7.1 g/dL (12.0-16.0); Mean Corp Hgb Conc. 34.6 g/dL (33.0-37.0); Mean Platelet Volume 11.5 fL (7.4-10.4); Platelet Count 89 10^3/uL (130-400); Red Blood Cell Count 2.03 10^6/uL (4.20-5.40); Red Cell Dist. Width 12.3 % (11.5-14.5); White Blood Cell Count 11.4 10^3/uL (4.8-10.8)
[2024-02-03] MEDS: MAGONATE 86 MG PO (10:36)
--- NOTE | 2024-02-03 10:45 | PTCARENOTE ---
Patient sitting up in bed. Tolerating clear liquid diet. Repeat CBC unchanged from AM. Per Hospitalist, transfuse 1 unit PRBCs. Consent obtained and placed on chart. Awaiting order. VSS.
[2024-02-03] MEDS: LR 1000 IV (11:25)
--- NOTE | 2024-02-03 11:26 | PTCARENOTE ---
IVFs switched to LR. Diet advanced to regular. Appetite good.
--- NOTE | 2024-02-03 12:27 | PTCARENOTE ---
BP trending down. Hospitalist and Resident notified. Order for blood transfusion to be placed.
[2024-02-03 13:26] LABS: Blood Urea Nitrogen 56 mg/dl (7-17); Calcium 7.8 mg/dl (8.4-10.2); Carbon Dioxide 22 mmol/L (22-30); Chloride 95 mmol/L (98-107); Estimated Creatinine Clearance 20 ml/min; Glucose 169 mg/dl (70-99); Potassium 3.7 mmol/L (3.5-5.1); Sodium 130 mmol/L (135-145); eGFR 30.83
--- NOTE | 2024-02-03 13:31 | PTCARENOTE ---
PRBCs transfusing. Assessment unchanged. Resting comfortably.
--- NOTE | 2024-02-03 13:37 | CM ---
Patient seen at bedside with physician, patient and residents. Patient for blood transfusion per physician and indicated that when she is medically stable she would like to be transferred back to [facility] if bed available. Patient will
need auth for placement. CM will continue to follow for discharge planning needs.
Plan; SNF
--- NOTE | 2024-02-03 15:26 | PTCARENOTE ---
1 unit PRBCs transfused. Vitals stable. BP remains soft. Urine output 25 cc/hr. Home Child Care Provider notified. No other changes in assessment. Patient assisted in ordering dinner.
--- NOTE | 2024-02-03 16:30 | PTCARENOTE ---
Patient initiated on Midodrine for BP support.
[2024-02-03] MEDS: ProAmatine 10 MG PO ×2 (16:33→19:43)
--- NOTE | 2024-02-03 17:33 | W.CON.NEPH ---
Consultation
-
Date/Time Consultation Requested: 02/03/2024 1700
Date/Time Consultation Performed: 02/03/2024 1735
Requesting Provider: Dr Walton
Performing Provider: Dr. Austin
Reason for Consultation: Hyponatremia, hypotension
Medical History
-
Chief Complaint: Back pain, fever
History of Present Illness:
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 Lang at [place]. She does not know her baseline renal function. There is also a reported history of chronic hyponatremia and she is on
chronic diuretic therapy. She has rheumatoid arthritis on leflunomide which has been stable as well as spinal stenosis. She does have chronic back pain. She has a spinal stimulator. She was in the emergency room 2 days ago for lower back pain.
Imaging at that time with x-ray did not show acute fracture or disease. She returned however with worsening pain and difficulty with ambulation. She had a white count at that time and acute kidney injury with a creatinine of 1.9. Her blood
pressure was noted to be low with systolic blood pressure in the 60s and she was started on pressors and sent to the ICU. Her sodium level has dropped to 125 and we are asked to assist with management of her hyponatremia. Fortunately, her
creatinine had improved to 1.6. She remains on pressure support with midodrine therapy with systolic blood pressures in the 80s. She is currently critically ill in the ICU.
Past Medical History
CKD unknown stage, atrophic left kidney, hypertension, hyponatremia, paroxysmal atrial fibrillation, hyperlipidemia, hypothyroidism, rheumatoid arthritis, spinal stenosis, scoliosis, spinal stimulator, left hip replacement, bilateral knee
replacement, hysterectomy
Social History
Tobacco: Non-Smoker
Alcohol: None
Family History
Family History: Not Pertinent
Allergies / Home Medications
Allergy/AdvReac Type Severity Reaction Status Date / Time
No Known Allergies Allergy Verified 01/31/24 09:47
�Medication �Instructions �Recorded �Confirmed �Type
carvedilol 25 mg tablet 25 mg PO BID Blood pressure 11/14/21 02/02/24 History
leflunomide 20 mg tablet 20 mg PO DAILY Autoimmune disorder 11/14/21 02/02/24 History
levothyroxine 50 mcg tablet 50 mcg PO DAILY Thyroid 11/14/21 02/02/24 History
oxycodone 5 mg tablet 5 mg PO Q8HPRN PRN moderate-severe 11/14/21 02/02/24 History
pain
pravastatin 20 mg tablet 20 mg PO DAILY High cholesterol 11/14/21 02/02/24 History
sulfasalazine 500 mg tablet 500 mg PO TID Autoimmune disorder 11/14/21 02/02/24 History
lisinopril 20 mg tablet 20 mg PO BID Blood pressure 03/02/22 02/02/24 History
furosemide 40 mg tablet 40 mg PO DAILY Fluid 03/03/22 02/02/24 History
Retention/Swelling
prednisone 5 mg tablet 5 mg PO DAILY 30 days #30 tabs 03/09/22 02/02/24 Rx
ascorbic acid (vitamin C) 1,000 mg 1,000 mg PO DAILY Supplement 01/31/24 02/02/24 History
tablet (Vitamin C)
aspirin 81 mg capsule 162 mg PO DAILY Blood Clot 01/31/24 02/02/24 History
Prevention/Tx
biotin 1,000 mcg chewable tablet 1,000 mcg PO DAILY Supplement 01/31/24 02/02/24 History
calcium 600 mg (as carbonate)-vit 1 tab PO DAILY Supplement 01/31/24 02/02/24 History
D3 20 mcg (800 unit) chewable
tablet (Caltrate plus D)
folic acid 1 mg tablet 1 mg PO DAILY Supplement 01/31/24 02/02/24 History
omeprazole 20 mg capsule,delayed 20 mg PO DAILY Gastrointestinal 01/31/24 02/02/24 History
release Issue
terazosin 1 mg capsule 1 mg PO HS Blood Pressure 01/31/24 02/02/24 History
acetaminophen 325 mg tablet 650 mg PO Q4HPRN PRN mild pain 02/02/24 02/02/24 History
acetaminophen 500 mg tablet 1,000 mg PO HS Pain 02/02/24 02/02/24 History
bisacodyl 10 mg rectal suppository 10 mg CA DAILYPRN PRN if no bm in 02/02/24 02/02/24 History
(Dulcolax (bisacodyl)) 8hrs after MOM
diazepam 5 mg tablet (Valium) 5 mg PO BIDPRN PRN muscle spasm 02/02/24 02/02/24 History
lidocaine 4 %-menthol 1 % topical 1 patch topical DAILY Pain 02/02/24 02/02/24 History
patch (Icy Hot Patch
(lidocaine-menthol))
magnesium hydroxide 400 mg/5 mL 30 ml PO DAILYPRN PRN if no bm x 2 02/02/24 02/02/24 History
oral suspension (Milk of Magnesia) days
oxycodone 10 mg tablet 10 mg PO DAILY Pain 02/02/24 02/02/24 History
sodium phosphates 19 gram-7 118 ml CA DAILYPRN PRN if no bm 8 02/02/24 02/02/24 History
gram/118 mL enema (Fleet Enema) hrs after suppository
methotrexate sodium 2.5 mg tablet 10 mg PO TH RA 02/03/24 02/03/24 History
Review of Systems
-
Back pain. No chest pain or shortness of breath. No extreme thirst.
All other systems: Negative unless noted
Physical Exam
Vital Signs
Vital Signs
Temp Pulse Resp BP Pulse Ox
97.5 F 73 16 82/44 92
02/03/24 15:15 02/03/24 17:00 02/03/24 17:00 02/03/24 17:00 02/03/24 16:15
Lab Results
Sodium 130 mmol/L (135-145) L 02/03/24 12:47
Potassium 3.7 mmol/L (3.5-5.1) 02/03/24 12:47
Chloride 95 mmol/L (98-107) L 02/03/24 12:47
Carbon Dioxide 22 mmol/L (22-30) 02/03/24 12:47
BUN 56 mg/dl (7-17) H 02/03/24 12:47
Creatinine 1.6 mg/dL (0.6-1.0) H 02/03/24 12:47
eGFR 30.83 02/03/24 12:47
Glucose 169 mg/dl (70-99) H 02/03/24 12:47
Calcium 7.8 mg/dl (8.4-10.2) L 02/03/24 12:47
Phosphorus 4.2 mg/dl (2.5-4.5) 02/03/24 04:11
Albumin 2.5 g/dl (3.5-5.0) L 02/03/24 04:11
Laboratory Tests
11/02/23 02/02/24
19:16 16:21
Sodium 133 L
Urine Osmolality 340
Urine Sodium 12 L
Physical Exam
Patient is awake alert oriented and in no distress. Mood and affect were pleasant, insight and judgment were good. Pupils are equal round and reactive to light, extraocular movements are intact, sclera were anicteric. Hearing was normal, ears and
nose are intact. Oropharynx was clear. Neck was supple with trachea midline and no thyromegaly. Heart was regular rate and rhythm without rubs. Lower extremities without edema. Lungs were clear to auscultation bilaterally and with normal
excursion. Abdomen was soft, nontender, with normal active bowel sounds, and no hepatosplenomegaly. Skin was without rash and with normal turgor.
Data Reviewed
-
Radiology: Image Personally Visualized and interpreted (Chest x-ray on 02/02/2024 by my reading shows cardiomegaly no acute disease)
Medical Tests (Nuc Med, Echo etc): Image Personally Visualized and interpreted (EKG on 02/02/2024 by my reading shows sinus rhythm first-degree AV block anterior septal Q)
Labs: Labs Reviewed by me
Old Records: Reviewed
Assessment/Plan
-
Assessment
Sepsis
Hypotension
Iron deficiency anemia
Thrombocytopenia
Acute kidney injury
CKD unknown stage, atrophic left kidney
Hyponatremia
Fever
Plan
IV fluids
Hypertonic saline 20 cc/h
Follow BMP serially
Keep mean arterial pressure greater than 65, use pressors if necessary
Source of sepsis currently uncertain
Critical care time spent 35 minutes
[2024-02-03 17:46] LABS: Hematocrit 23.8 % (37.0-47.0); Hemoglobin 8.4 g/dL (12.0-16.0); Mean Corp Hgb Conc. 35.3 g/dL (33.0-37.0); Mean Corpuscular Volume 96.4 fL (81.0-99.0); Mean Platelet Volume 11.7 fL (7.4-10.4); Platelet Count 100 10^3/uL (130-400); Red Blood Cell Count 2.47 10^6/uL (4.20-5.40); Red Cell Dist. Width 14.4 % (11.5-14.5); White Blood Cell Count 12.1 10^3/uL (4.8-10.8)
--- NOTE | 2024-02-03 17:52 | W.PN.HOSP.TC ---
Addendum entered and electronically signed by Iris Meraz MD 02/03/24 20:39:
I saw and evaluated the patient independently. I reviewed the resident�s note and agree with findings and plan as documented by Dr. Gardner.
GENERAL: well developed, well nourished, female in NAD--much improved from admission
HEENT: NC/AT--off O2
HEART: regular rate and rhythm, +S1, +S2
LUNGS : clear to auscultation bilaterally
ABDOM: soft, nontender, nondistended, + bowel sounds
EXT: no cyanosis, clubbing, or edema
NEUROLOGIC: grossly intact
septic shock with metabolic acidosis and presumed toxic metabolic encephalopathy (TME) from infection--unclear source of infection--much improved, off pressors and O2--PNA, UTI, abdominal sources all ruled out, meningitis, encephalitis both appear
less likely now that pt awake (perhaps from effect of stress dose steroids?)--discitis, abscess still possible--zulma in light of relative immunosuppression (chronic steroids, MTX, leflunamide)--cont IVF with bicarbonate, unable to get MRI spine--cont
zosyn/vanco, if cultures remain neg, consider stopping--apprec ID/registered vascular technologist (rvt), wean stress dose steroids
acute hypoxemic resp failure--89% on NC (mouth breather)--place NRB mask--likely due to sepsis as no PNA on CXR--wean O2 as able--apprec pulm/registered vascular technologist (rvt)--resolved
DAVID--creat 2 days ago was 1.4 (now 1.7)--likely prerenal cause from hypotension with sepsis--NSAID use for back pain possible--cont IVF---pompa--holding lisinopril--renal dose meds--consult renal
hyponatremia--sodium 141 two days ago--then 131, now 128--acute drop could be due to sepsis, SIADH from back pain, adrenal insufficiency--cont IVF--follow--consult renal
anemia--likely of chronic disease--no signs of bleeding--iron and TIBC low--check TSH--ferritin high but also is acute phase reactant--retic count elevated at 4.2--B12 within normal limits--with fluid resuscitation HGB dropped to 7.1--transfuse pRBC
change in MS/TME--resolved--? due to relative adrenal insufficiency--improved this AM-- oxycodone (hold)- hold valium as well----treat underlying sepsis and follow
hypothyroid--hold levothyroxine for now--check TSH
rheumatoid arthritis/spinal stenosis--on prednisone, leflunamide, MTX, sulfasalazine--holding all--wean stress dose steroids--spinal stimulator
essential HTN -- hold all BP meds--off pressors
HLD--hold pravastatin
DVT proph--SCDs
code status -- DNR
Total Critical Care Time 39 minutes. I was immediately available to the patient and staff. I personally examined, reviewed labs, diagnostic images/reports, interpretations, treatment plans, discussed patient care with other providers and family
or caregivers (if patient is unable to make decisions), entered orders as appropriate and documented the medical record.
Original Note:
Today's Communication/Plan
-
follow blood cultures
continue empiric antibiotics
monitor blood pressure and electrolytes
Assessment / Plan
Assessment / Plan
IMPRESSION
88/F with past medical history of Rheumatoid arthritis(on leflunomide and methotrexate), Anemia of chronic disease(low iron,low TIBC), history of scoliosis and spinal stenosis, CKD, Hypothyroidism, essential hypertension, persistent atrial
fibrillation admitted with septic shock and acute kidney injury secondary to hypotension.
ASSESSMENT
Sepsis secondary to discitis??
Acute kidney injury secondary to hypotension
Acute anemia due to sepsis
Hyponatremia due to adrenal insufficiency??
PLAN
Sepsis secondary to discitis??
Patient more comfortable
Able to breathe on room air
Levophed placed on hold
Continue fluids
Still waiting for MRI Lumbar spine to rule out discitis
consult infectious disease done their plan is to continue with empiric Zosyn for now while blood cultures are pending, but if cultures remain negative will discontinue empiric antibiotics.
Continue to monitor white count and temperature curve.
Continue with supportive measures.
Acute kidney injury secondary to hypotension
Patient's serum creatinine improved today from 1.9 to 1.7
Still in acute kidney injury
Nephrology consult
Hypertonic saline 20 cc/h
Follow BMP serially
Keep mean arterial pressure greater than 65, use pressors if necessary
repeat cmp
Acute anemia due to sepsis
Patient's hgb dropped to 7.1
transfuse one pack of red blood cells
consent form signed and risks explained to patient
retic count increased
repeat cbc and haptoglobin
Hypokalemia and hypocalcemia
possibly due to sepsis
adrenal insufficiency
potassium and calcium replaced
repeat labs
PICC to give fluids
Code status: DNR/DNI
DVT prophylaxis. sequential compression devices
Anticipated Discharge: 24 - 48 hours
Subjective/Interval History
-
Date of Service: February 03, 2024
Objective Data
-
Labs:
Laboratory Results
02/03/24 02/03/24 02/03/24
09:33 12:47 17:27
WBC 11.4 H 12.1 H
Hgb 7.1 L 8.4 L
Hct 20.5 L* 23.8 L
Plt Count 89 L 100 L
Sodium 130 L
Potassium 3.7
Chloride 95 L
Carbon Dioxide 22
BUN 56 H
Creatinine 1.6 H
Glucose 169 H
Calcium 7.8 L
02/03/24
22:00
WBC
Hgb
Hct
Plt Count
Sodium Pending
Potassium Pending
Chloride Pending
Carbon Dioxide Pending
BUN Pending
Creatinine Pending
Glucose Pending
Calcium Pending
Vital Signs:
Vital Signs
Temp Pulse Resp BP Pulse Ox
97.5 F 73 16 82/44 92
02/03/24 15:15 02/03/24 17:00 02/03/24 17:00 02/03/24 17:00 02/03/24 16:15
I&O
02/02/24 02/03/24 02/04/24
06:59 06:59 06:59
Intake Total 4743.3 / 4922.1 1947.6 / 1947.6
Output Total 1226 / 1326 455 / 455
Balance 3517.3 / 3596.1 1492.6 / 1492.6
[2024-02-03] MEDS: SODIUM CHLORIDE 3% 250 IV (17:57)
--- NOTE | 2024-02-03 18:12 | PTCARENOTE ---
3% saline initiated per K9 Handler.
--- NOTE | 2024-02-03 18:42 | PTCARENOTE ---
Patient's BP dropped to 60/40's. Levophed initiated. Titrating for MAP>65. AZURE DEVELOPER notified and order for Calcium placed in addition to Levophed. Director Workers Compensation at bedside to assess patient.
[2024-02-03] MEDS: CALCIUM CHLORIDE 10% SYRINGE 60 MG IV (19:43)
--- NOTE | 2024-02-03 20:00 | PTCARENOTE ---
Received patient AAOx3, denying pain, ALEKNAGIK b/l with hearing aids in. Afib 70s, levo gtt ongoing, titrating to maintain MAP>65. Normothermic, 91% on room air. Lung sounds clear, diminished in the bases. Abdomen soft, round, nontender, hypoactive bowel
sounds. Rosa in place draining yellow urine. Right DL PICC patent, WNL, PIVs patent. 3% gtt ongoing per order. Family at bedside, updated. Repositioned and mouth care done.
[2024-02-03 22:49] LABS: Blood Urea Nitrogen 56 mg/dl (7-17); Calcium 7.8 mg/dl (8.4-10.2); Carbon Dioxide 18 mmol/L (22-30); Chloride 111 mmol/L (98-107); Estimated Creatinine Clearance 20 ml/min; Glucose 194 mg/dl (70-99); Potassium 3.2 mmol/L (3.5-5.1); Sodium 141 mmol/L (135-145); eGFR 30.83
[2024-02-04] VITALS (51 sets, daily range): BP systolic 83–130; BP diastolic 45–76; PULSE 81–83; O2SAT 92–93; BMI 27.5
--- NOTE | 2024-02-04 | PTCARENOTE ---
Potassium repleted, blood cultures sent. Otherwise patient assessment unchanged from previous.
[2024-02-04] MEDS: KCL 40 MEQ PO (00:47)
[2024-02-04] MEDS: ZOSYN 50 IV ×2 (03:22→08:33)
[2024-02-04] MEDS: LEVOPHED 250 IV (04:31)
[2024-02-04 04:46] LABS: Hematocrit 23.4 % (37.0-47.0); Hemoglobin 8.5 g/dL (12.0-16.0); Mean Corp Hgb Conc. 36.3 g/dL (33.0-37.0); Mean Corpuscular Hgb 34.7 pg (27.0-31.0); Mean Corpuscular Volume 95.5 fL (81.0-99.0); Mean Platelet Volume 11.3 fL (7.4-10.4); Platelet Count 117 10^3/uL (130-400); Red Blood Cell Count 2.45 10^6/uL (4.20-5.40); Red Cell Dist. Width 14.9 % (11.5-14.5); White Blood Cell Count 12.7 10^3/uL (4.8-10.8)
[2024-02-04 05:04] LABS: Blood Urea Nitrogen 61 mg/dl (7-17); Calcium 7.9 mg/dl (8.4-10.2); Carbon Dioxide 19 mmol/L (22-30); Chloride 103 mmol/L (98-107); Estimated Creatinine Clearance 20 ml/min; Glucose 175 mg/dl (70-99); Potassium 3.8 mmol/L (3.5-5.1); Sodium 135 mmol/L (135-145); eGFR 30.83
[2024-02-04 05:34] LABS: TSH Reflex To Free T4 3.38 uIU/ml (0.47-4.68)
--- NOTE | 2024-02-04 06:07 | W.PN.HOSP.TC ---
Today's Communication/Plan
-
Monitor vitals
CT lumbar spine shows no signs of discitis
pericholecystic fluid
ultrasound abdomen
Wean off oxygen and Levophed
Assessment / Plan
Assessment / Plan
Impression
88 years old female admitted with sepsis/septic shock secondary to discitis??. She has past medical history of chronic anemia, chronic hyponatremia ,hypothyroidism diverticulosis and chronic back pain.
Assessment
Sepsis/septic shock secondary to discitis?/Unknown cause
Acute kidney injury
Hyponatremia
Acute anemia secondary to sepsis/chronic anemia
Hypothyroidism
Rheumatoid arthritis/spinal stenosis
Essential hypertension
Plan
Sepsis/septic shock secondary to discitis?/Unknown cause
Unclear source of infection
Maintain blood pressure
Wean off vasopressors
Blood cultures show Streptococcus
CT lumbar spine pending/Could be a source of infection?
Monitor blood pressure
Wean off oxygen
Temperature charting
Acute kidney injury
Patient has a left atrophic kidney and history of chronic kidney disease
Baseline creatinine not known
Creatinine increased by 0.5 over 3 days
Most likely DAVID
Kidney function now improving
Monitor RFT's
Manage serum electrolytes and hydrate the patient
Hypothyroid
serum TSH within normal limits
Can continue levothyroxine
Rheumatoid arthritis/spinal stenosis likely immunosupressed
On prednisone, leflunomide ,methotrexate sulfasalazine
Currently on hold
Consider restarting once vitally stable
Essential hypertension
Hold all medications until blood pressure stabilizes
DVT prophylaxis sequential compression devices
CODE STATUS DO NOT RESUSCITATE
Anticipated Discharge: 24 - 48 hours
Subjective/Interval History
-
Date of Service: February 04, 2024
Patient still complains of back pain. 0-1 out of 10 when does not move and 9 out of 10 when she has to move even a little bit. Patient has a spinal stimulator in place. Complains of severe back pain.
Objective Data
-
Labs:
Laboratory Results
02/03/24 02/04/24
22:21 04:27
WBC 12.7 H
Hgb 8.5 L
Hct 23.4 L
Plt Count 117 L
Sodium 141 D 135
Potassium 3.2 L 3.8
Chloride 111 H 103
Carbon Dioxide 18 L 19 L
BUN 56 H 61 H
Creatinine 1.6 H 1.6 H
Glucose 194 H 175 H
Calcium 7.8 L 7.9 L
Vital Signs:
Vital Signs
Temp Pulse Resp BP Pulse Ox
100.3 F 76 22 107/60 96
02/04/24 03:33 02/04/24 05:30 02/04/24 05:30 02/04/24 05:30 02/04/24 05:30
I&O
02/02/24 02/03/24 02/04/24
06:59 06:59 06:59
Intake Total 4743.3 / 4922.1 2646.4 / 2646.4
Output Total 1226 / 1326 689 / 689
Balance 3517.3 / 3596.1 1957.4 / 1957.4
Review of Systems
-
All other systems: Reviewed and negative
Physical Exam
-
General: No Apparent Distress, Conversant and Appears Chronically Ill
HEENT: Normocephalic, Atraumatic, Oxygen (2liters) and Other (pale)
Respiratory: Clear to Auscultation
Cardiac: Regular Rhythm, S1/S2 and Calf Tenderness (bilateral)
GI: Soft, Nontender and Normal Bowel Sounds
Genito-urinary: No Costovertebral Tender
Musculoskeletal: No Clubbing and No Cyanosis
Skin: Warm and Dry
Neuro: Awake, Alert and Oriented
Hematologic / Lymphatic: No Lymphadenopathy
Psych: Calm
--- NOTE | 2024-02-04 06:09 | PTCARENOTE ---
Labs sent, patient assessment unchanged from previous. Resting comfortably, call younger within reach.
[2024-02-04] MEDS: SYNTHROID 50 MCG PO (06:10)
--- NOTE | 2024-02-04 08:04 | W.PN.NEPH.PH ---
Today's Communication / Plan
-
No more 3% sat
Assessment/Plan
-
Assessment
Sepsis
Hypotension
Iron deficiency anemia
Thrombocytopenia
Acute kidney injury
CKD unknown stage, atrophic left kidney
Hyponatremia
Fever
Plan
sodium up to 135 following hypertonic
Creatinine at 1.6
Nonoliguric
Hemodynamically stable on midodrine
Keep mean arterial pressure greater than 65, use pressors if necessary
Source of sepsis currently uncertain:urine with Ecoli and blood times one strep
metabolic acidosis persists
-
-
Date of Service: February 04, 2024
CC / HPI / ROS
-
Chief Complaint:
Hyponatremia
CKD
History of Present Illness:
Serum sodium up to 135 following 250 cc of 3% saline
Hemodynamically maintained on midodrine and low dose norepinephrine
Creatinine unchanged at 1.6
Review of Systems:
Febrile
Nonoliguric
Labs
-
Labs:
WBC 12.7 10^3/uL (4.8-10.8) H 02/04/24 04:27
RBC 2.45 10^6/uL (4.20-5.40) L 02/04/24 04:27
Hgb 8.5 g/dL (12.0-16.0) L 02/04/24 04:27
Hct 23.4 % (37.0-47.0) L 02/04/24 04:27
Plt Count 117 10^3/uL (130-400) L 02/04/24 04:27
Sodium 135 mmol/L (135-145) 02/04/24 04:27
Potassium 3.8 mmol/L (3.5-5.1) 02/04/24 04:27
Chloride 103 mmol/L (98-107) 02/04/24 04:27
Carbon Dioxide 19 mmol/L (22-30) L 02/04/24 04:27
BUN 61 mg/dl (7-17) H 02/04/24 04:27
Creatinine 1.6 mg/dL (0.6-1.0) H 02/04/24 04:27
eGFR 30.83 02/04/24 04:27
Glucose 175 mg/dl (70-99) H 02/04/24 04:27
Calcium 7.9 mg/dl (8.4-10.2) L 02/04/24 04:27
Phosphorus 4.2 mg/dl (2.5-4.5) 02/03/24 04:11
Albumin 2.5 g/dl (3.5-5.0) L 02/03/24 04:11
Physical Exam
-
Vital Signs:
Vital Signs
Temp Pulse Resp BP Pulse Ox
100.3 F 72 22 123/59 97
02/04/24 03:33 02/04/24 06:00 02/04/24 06:00 02/04/24 06:00 02/04/24 06:00
Cardiovascular:: Regular rate and rhythm
Respiratory:: Bilateral: Coarse
Lung Excursion:: Normal
Abdomen:: Nontender and Soft
Bowel Sounds:: Normal
Extremity Edema:: None: Bilateral:
Rosa Catheter: Yes
--- NOTE | 2024-02-04 08:17 | W.PN.INTV ---
Today's Communication / Plan
Recommendations
Up OOB as tolerated
Weaned off all vasopressors this morning
Trend H/H transfusing to keep >7g/dL
Maintain SpO2 >90-94%
Hold home immunosuppressive drugs including leflunomide + methotrexate
Check blood Cx x1 set as for surveillance purposes
ID on board - defer ABx to them
She may need FLOYD
Check RUQ US
Once spinal stimulator MRI compatibility is confirmed then will check MRI T/L-spine
Patient has remained off vasopressors all day and is hemodynamically stable. Patient stable for downgrade out of ICU to IMU. Hse Coordinator/Pulmonary service will now sign off. Please reconsult if there are any additional questions/concerns, or if
patient's respiratory status deteriorates.
Assessment
-
Assessment: 88-year-old female nontobacco smoker with a past medical history of chronic hyponatremia, rheumatoid arthritis on leflunomide, history of spinal stenosis, history of scoliosis, CKD, hypothyroidism, history of A-fib, hyperlipidemia and
hypertension who presents with back pain, and fever. She was recently here in the ER 2 days prior for lower back pain without bowel or bladder dysfunction and no prior injury. Pain was so bad she was unable to ambulate at that time. Lumbar XR
showed moderate to severe lumbar scoliosis with multilevel degenerative disc disease with no acute fracture. She continues to have significant lower back pain which is limiting her ambulation ability. In the ER she was afebrile to 98 �F, pulse
rate 80, breathing at 21 breaths/min, BP 119/55 and saturating 96% on 2 L/min nasal cannula. Labs showed mild leukocytosis to 11, anemia to 8.8, thrombocytopenia to 98, hyponatremic to 131, low serum chloride of 95, creatinine 1.9, lactate WNL at
1.6, T. bili elevated at 1.4, AST 38, and urinalysis negative for UTI. Blood cultures were collected. CXR showed right midlung discoid atelectasis and small pleural effusions, and CT abdomen/pelvis (markedly limited study) showed small bilateral
pleural effusions with bibasilar subsegmental atelectasis with no intestinal obstruction or free air and redundant sigmoid colon with diverticulosis. In the ER she was given Solu-Cortef 100 mg, IVF with NS 0.9% x 1.5L, Zofran, Zosyn and then
started on Levophed due to persistent hypotension with SBP in the 60�70s. Given her need for vasopressors, she was admitted to the ICU for further care and account maintenance representative services consulted for additional management/recommendations.
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
Impression:
#Shock requiring vasopressors, suspected to be septic from unknown source however with severe lower back pain top differentials include discitis versus osteomyelitis versus other spinal pathology - shock state resolved
#Streptococcal bacteremia (via blood cultures on 02/02/2024)
#Acute respiratory failure with hypoxia likely due to sepsis with acute organ dysfunction - hypoxia now resolved
#DAVID superimposed on CKD (baseline Cr: 1.1-1.4)
#Severe lower back pain in the setting of moderate�severe lumbar scoliosis with multilevel degenerative disc disease
#Acute on chronic anemia (baseline Hb 8 - 9.5g/dL) - suspect this to be dilutional as she is not actively bleeding, has no abd pain or nausea/vomiting and no rectal bleeding and no epistaxis/hemoptysis
#Iron-deficiency anemia
#Chronic thrombocytopenia (baseline plt 80-165)
#Chronic hyponatremia (baseline Na: 130-136)
#Transaminitis with elevated T. bili + AST
#RA on MTX, leflunomide and chronic prednisone at 5mg daily
Plan:
- Broad spectrum Abx - currently on Zosyn s/p IV vanco x1 in ER
- We first need to confirm MRI compatibility of her spinal stimulator before MRI can be obtained. She is not sure who or when her spinal stimulator was placed but it was done at [place]. Obtain prior medical records from her PCP, Dr. Bowry -
hopefully we can check a MRI T and L spine to evaluate for source of sepsis
- Dr. Reid Martinez with [facility] inserted her spinal stimulator --> will obtain medical records to see if we can find out more information about her spinal stimulator, as I called the office for Dr. Martinez and there was no
available records that showed he even saw her before or did her surgery
- In interim, check a CT T and L spine without contrast --> obtained today showing no findings of osteodiscitis
- Incidentally her gallbladder appeared dilated with possible mild pericholecystic inflammatory stranding. --> check RUQ US
- Follow up blood cultures X2 (collected 02/02/2024)
- Treat fever with tylenol and keep <2g per 24 hrs
- Hold off on iron supplementation given streptococcal bacteremia with source still being evaluated
- I performed bedside PocUS on 02/03/2024 and her IVC collapsibility is 16% with A-line predominant lung romero and preserved LVEF with no evidence of pericardial effusion --> this suggest that she is not hypovolemic; started midodrine with wean;
stopped IVF
- Patient has now been weaned off of vasopressors this morning.
- Stress dose steroids stopped given her improved hemodynamics
- Continue regular diet
- ID now consulted and recs appreciated --> Zosyn changed to Unasyn today
- Repeat set of surveillance blood Cx
- Check TTE --> done today (02/03) showing no evidence of endocarditis or vegetation. LVEF is preserved at 57%. Normal RV size and function with mild MR + mild TR
- She may need FLOYD
- Check RUQ US as above
- Patient started on 3% NS on 02/02 which is now stopped; continue to trend sodium (she has chronic hyponatremia with baseline 130�136)
- Pain control
- Maintain SpO2 >90-94%
- Trend sCr and renally dose all meds/Abx
- Trend LFTs
- Given the small bilateral pleural effusions, maintain net neutral to slightly net negative fluid balance
- Sodium and fluid restricted diet
- Transfuse as needed to keep Hb>7g/dL and plt>20k
- 1 unit PRBC transfused yesterday given drop in Hb to 7.1 from 8.8 day prior despite no clinical signs of bleeding; Hb 8.5 today; no need for repeat blood transfusion at this time
- I spoke with the patient's PCP office on 02/02 (spoke with Dr. Tanner) and patient's home dose of MTX is: 10mg once a week
- Replete electrolytes with K>4, Mg>2
- Maintain euglycemia with goal BG 140-180
- prn nebulized bronchodilators - pt not currently bronchospastic
- Incentive spirometer encouraged 10x per hour for at least 4 hrs a day
- DVT ppx: Start HSQ 5000 units q12hr
Repeat scan is needed to follow-up her lung parenchyma now that she is more euvolemic to reassess stability of right lower lobe nodule and her left renal lesion. This can be done as an outpatient over the next 4-6 weeks. I will arrange for
outpatient follow up.
IV access: Right brachial vein dual-lumen PICC (inserted by PICC team on 02/02/2024)
Code status: DNR/DNI
Patient has remained off vasopressors all day and is hemodynamically stable on midodrine; of note, her BP drops when she sleeps with SBP in 80-90s and MAP low 60s. Patient stable for downgrade out of ICU to IMU. Hse Coordinator/Pulmonary service will
now sign off. Thank you for allowing us to be involved in the care of this patient. Please reconsult if there are any additional questions/concerns, or if patient's respiratory status deteriorates.
Data:
CT Abd/Pelvis without contrast 02/02/2024:
MARKEDLY LIMITED STUDY as a result of numerous factors including marked beam hardening artifact from the patient's bilateral upper extremities, beam hardening artifact from left hip arthroplasty, lack of oral contrast and lack of intravenous
contrast.
Tiny bilateral pleural effusions and bilateral lower lobe subsegmental atelectasis which obscure tiny right lower lobe pulmonary nodule seen on prior CT.
Approximate 0.6 cm slightly high attenuation lesion laterally left kidney which could represent a complex/proteinaceous cyst or solid mass, cannot be differentiated on the basis of this study without intravenous contrast, indeterminate.
No intestinal obstruction or free air.
Redundant sigmoid colon with diverticulosis.
CXR 02/02/2024:
Right midlung discoid atelectasis.
Small bilateral pleural effusions.
Transthoracic echocardiogram 02/04/2024:
Normal left ventricular size and function. Normal regional wall motion. Mild
concentric left ventricular hypertrophy. LV ejection fraction is 57% by
volumetric assessment. Diastolic function indeterminate due to atrial
fibrillation.
Normal right ventricular size and function.
Indexed LA volume is severely abnormal (> 48 mL/m2).
Dilated right atrium.
Mild mitral regurgitation.
Mild tricuspid regurgitation. Estimated pulmonary artery pressure of 25-30
mmHg. Assuming a right atrial pressure of 8 mmHg.
Pleural effusion present.
No prior study available for comparison.
Total time spent today was 50 minutes for this encounter. Time includes reviewing laboratory test/imaging results, reviewing pertinent medical records, obtaining and reviewing medical history, performing an appropriate exam, ordering medications,
tests and procedures. Time also includes documentation of this encounter, coordinating patient care and communicating with other healthcare professionals. Total time does not include separately billed tests performed on this date of service.
Subjective Dataa
Subjective Data
Date of Service:
Date of Service: February 04, 2024
Chief Complaint: Hse Coordinator Follow Up
Subjective:
Patient seen and evaluated this morning. She was on Levophed this morning at 4mcg/min. Pressure is 113/61, heart rate 86 and saturating 93% on room air. She required Levophed overnight at around 3�4mcg/min. Hb this morning is 8.5. Went down for
CT thoracic/lumbar spine. She has pain in her back after coming back from CT. at bedside and all questions were answered. Patient denies shortness of breath, chest pain, SHAFER, nausea, fevers or chills.
Review of Systems
General: Other (Negative unless mentioned above)
Objective Data
Data Reviewed
Vital Signs / I&O / Oxygen:
Vital Signs
Temp Pulse Resp BP Pulse Ox
99.0 F 72 22 123/59 94
02/04/24 08:15 02/04/24 06:00 02/04/24 06:00 02/04/24 06:00 02/04/24 09:17
Intake and Output
02/03/24 02/04/24 02/05/24
06:59 06:59 06:59
Intake Total 4743.3 / 4922.1 2691.4 / 2706.4 335 / 335
Output Total 1226 / 1326 689 / 689
Balance 3517.3 / 3596.1 2002.4 / 2017.4 335 / 335
SaO2 94
Nasal Cannula flow liters per 2
minute
Physical Exam
General: Respiratory Distress (negative), Comfortable, Chills (negative) and Sweats (negative)
HEENT: Normocephalic and Anicteric
Cardiovascular: Irregular Rhythm (Irregularly irregular) and Peripheral Edema (negative)
Respiratory: Clear, Wheeze (negative), Crackles (negative), Rhonchi (negative) and Non-Labored Respirations
GI: Soft, Non Distended, Non Tender and Normal Bowel Sounds
Neurology: AO x 3 and Tremors (negative)
Skin: Warm, Dry, Cyanosis (negative) and Jaundice (negative)
Labs/Micro/Reports
Lab Data
02/04/24 04:27
02/04/24 04:27
Microbiology
02/02/24 12:16 Blood/Venous Blood Culture - Preliminary
Streptococcus species
02/02/24 12:16 Blood/Venous Gram Stain - Final
02/02/24 12:47 Blood/Venous Blood Culture - Preliminary
Streptococcus species
02/02/24 12:47 Blood/Venous Gram Stain - Final
02/02/24 16:15 Nasal Swab Influenza Types A & B (KENN) - Final
Negative for Influenza A & B, NAAT
Negative results must be combined with clinical observations
and patient history.
Nucleic Acid Amplification test (NAAT)performed on the
[employer] platform.
--- NOTE | 2024-02-04 08:30 | PTCARENOTE ---
Received pt @ change of shift, drowsy but awakens to verbal stimuli. OX3, c/o severe chronic back pain- scheduled lidocaine patch/prn magdalena admin- see JUL. Controlled afib on monitor. SpO2 94% on RA. +BS, abd soft/round. Inc of xl soft/brown
stool. Complete alla care. Rosa in place w yellow urine. R DL PICC in place w levo gtt infusing to keep MAP >65- see flow sheet. Pt. able to reposition self in bed. ECHO completed @ bedside this AM. Plan for CT of back later today. Informed
on plan of care. Instructed on how to report care concerns and call aren w in reach.
[2024-02-04] MEDS: DELTASONE 5 MG PO (08:32)
[2024-02-04] MEDS: ProAmatine 10 MG PO (08:32)
[2024-02-04] MEDS: LIDOCAINE 4% PATCH 1 PATCH TOPICAL (08:32)
[2024-02-04] MEDS: PROTONIX IV 40 MG IV (08:33)
[2024-02-04] MEDS: NSS (PRESERVATIVE FREE) 10 ML IV (08:33)
[2024-02-04] MEDS: ROXICODONE 5 MG PO (08:37)
--- NOTE | 2024-02-04 09:29 | CM ---
Patient seen at bedside in ICU. Patient referral sent to [facility], no beds available at this time. Patient was a patient at [facility] prior to returning to . Patient family did not hold bed and patient plan is to return there pending bed
availability when medically appropriate. CM will continue to follow for discharge planning needs.
Plan; SNF: [facility] if possible
--- NOTE | 2024-02-04 09:31 | W.PN.ID1 ---
Date of Service
Date of Service: February 04, 2024
Today's Communication
Continue antibiotics. Await further blood culture data.
Assessment / Plan
Clinical sepsis; improved
Leukocytosis
Streptococcal bacteremia
- source unclear at present
Fever; improved
Thrombocytopenia
DAVID
- improved
Hypertension
Dyslipidemia
Hypothyroidism
Spinal stenosis
Severe lumbar scoliosis
Rheumatoid arthritis
Hemorrhoids
Recommendations:
Overall, patient appears clinically improved from admission. Patient remains off pressors.
Fever has improved.
Blood cultures now reveal growth of a streptococcal species. Repeat blood cultures have been collected.
Will check ECHO. ESR/CRP in AM.
Narrow to Unasyn for today. Further recommendations as additional data is returned.
Continue to monitor white count and temperature curve.
Continue with supportive measures.
����������������������������������������������������������
Chief Complaint
-: Leukocytosis, Clinical Sepsis and Bacteremia
Subjective / Review of Systems
Patient seen and examined. Continues to feel fatigued, although overall feels somewhat improved from yesterday.
Review of Systems: No Fever
Vital Signs / Physical Exam
Vital Signs
Vital Signs
Temp Pulse Resp BP Pulse Ox
99.0 F 72 22 123/59 94
02/04/24 08:15 02/04/24 06:00 02/04/24 06:00 02/04/24 06:00 02/04/24 09:17
Physical Exam
Constitutional: No Acute Distress, Comfortable, Chronically Ill and Non-toxic
Head: Normocephalic
Eyes: Pupils Equal, Pupils Round, No Conjunctival Hemorrhage and Sclera Anicteric
Oropharyngeal: Negative Thrush or Ulcers
Cardiovascular: Regular Rate and S1/S2; Negative S3/S4 or Murmur
Pulmonary: Clear and Non Labored; Negative Wheezes or Rales
Gastrointestinal: Soft, Non Tender, Non Distended and Normal Bowel Sounds
Extremities: Edema; Negative Cyanosis or Erythema
Skin: Negative Rash or Jaundice
Neurological: Awake and Alert
Psychological: Calm
Objective Data
Lab Data
Lab Results
02/04/24 04:27
02/04/24 04:27
PT 18.3 Sec (11.4-14.6) H 02/03/24 04:11
INR 1.51 02/03/24 04:11
APTT 24.4 Sec (23.4-35.0) 02/03/24 04:11
Estimated Creat Clear 20 ml/min 02/04/24 04:27
Lactic Acid Cancelled 02/03/24 06:00
Total Bilirubin 1.3 mg/dl (0.2-1.3) 02/03/24 04:11
AST 59 U/L (14-36) H 02/03/24 04:11
ALT 23 U/L (0-35) 02/03/24 04:11
Alkaline Phosphatase 46 U/L (38-126) 02/03/24 04:11
Most recent labs reviewed.
Micro Results:
02/02/24 12:16 Blood Culture - Preliminary
Blood/Venous Streptococcus species
Gram Stain - Final
02/02/24 12:47 Blood Culture - Preliminary
Blood/Venous Streptococcus species
Gram Stain - Final
02/03/24 23:11 Blood Culture - Pending
Blood/Venous
02/03/24 23:11 Blood Culture - Pending
Blood/Venous
02/02/24 16:15 Influenza Types A & B (KENN) - Final
Nasal Swab Negative for Influenza A & B, NAAT
Negative results must be combined with clinical observations
and patient history.
Nucleic Acid Amplification test (NAAT)performed on the
[employer] platform.
Imaging:
02/02/2024 CXR (portable): New right upper extremity PICC line in place. Mild cardiomegaly. Severe multilevel discogenic degenerative disease. Osteoporosis noted. Lung volumes are normal. Mild amount of scarring or subsegmental atelectasis in
the left lower lung. No focal airspace opacities noted. Please see full dictation for additional detail. Film personally viewed.
02/02/2024 CT abdomen/pelvis: MARKEDLY LIMITED STUDY as a result of numerous factors including marked beam hardening artifact from the patient's bilateral upper extremities, beam hardening artifact from left hip arthroplasty, lack of oral contrast
and lack of intravenous contrast. Tiny bilateral pleural effusions and bilateral lower lobe subsegmental atelectasis which obscure tiny right lower lobe pulmonary nodule seen on prior CT. Approximate 0.6 cm slightly high attenuation lesion
laterally left kidney which could represent a complex/proteinaceous cyst or solid mass, cannot be differentiated on the basis of this study without intravenous contrast, indeterminate. No intestinal obstruction or free air. Redundant sigmoid colon
with diverticulosis. See full dictation for additional detail. Film personally viewed.
Care Review
Plan reviewed with: Physician (Hospitalist)
--- NOTE | 2024-02-04 09:56 | PN.CDI ---
CDI
- -
CDI:
Physician Documentation Request
Admit Date: 02/02/24 15:37
Dear Doctor Jj,
Patient admitted for sepsis.
02/01 Editor In Chief Consult: 'rheumatoid arthritis on leflunomide'
02/02 Editor In Chief PN: 'Hold home immunosuppressive drugs including leflunomide + methotrexate'
Based on the above, could you clarify in the progress notes, the appropriate diagnosis, if significant, that supports the above abnormalities and additional evaluation, monitoring and/or treatment rendered:
Immunosuppressed
Normal immune status
Other
Use of terms such as suspected, likely, concern for, or probable (associated with a specific diagnosis that is being evaluated, monitored, or treated as if it exists) are acceptable and can be coded in the inpatient setting, when documented at the
time of discharge.
Thank you,
Asiya Rod RN, BSN
CDI Specialist
Available via [employer] text
Please use your independent medical judgment in providing your response.
--- NOTE | 2024-02-04 11:33 | PTCARENOTE ---
Pt. transported via bed to CT scan for imaging of back; transported back to rm [id number]- no events during transport. Levo gtt tapered to off per orders- see flow sheet. MAP remains >65; pt. denies dizziness/lightheadedness. Pt.'s to bedside
this AM, updated on plan of care. Call younger remains w in reach.
[2024-02-04] MEDS: DILAUDID 0.25 MG IV (11:48)
[2024-02-04] MEDS: MAG-TAB SR 84 MG PO (11:48)
[2024-02-04 11:55] LABS: Glucose - Point of Care 179 mg/dl (70-99)
[2024-02-04] MEDS: ProAmatine 5 MG PO ×2 (12:24→18:53)
[2024-02-04] MEDS: UNASYN IV (14:53)
--- NOTE | 2024-02-04 15:34 | W.PN.UPDATE ---
Update Note
Progress Note Update
I saw and evaluated the patient. I reviewed the resident�s note and agree with findings and plan as documented in the resident�s note.
Patient resting comfortably in bed. Reported some back pain.
No abd pain/nausea/vomiting
CT T/L spine
1. No findings at CT suspicious for osteodiscitis. No abnormal paraspinal collection is identified within the limits of noncontrast CT.
2. Gallbladder dilation as above. No calcified gallstones identified. As warranted, this could be further evaluated with follow-up ultrasound.
3. Multilevel severe degenerative changes lumbar spine as described. Multilevel moderate degenerative changes thoracic spine as described. No acute fracture or malalignment.
4. Small bilateral pleural effusions with adjacent atelectasis, right greater than left.
5. Approximately 4 mm focal/nodular opacity in the left upper lobe. May be related to scarring, indeterminate. Could be further evaluated with follow-up CT chest non emergently.

septic shock
Acute toxic metabolic encephalopathy -improved
Streptococcus bacteremia
-Patient required to be started on vasopressors again
-Mentation is better and low chances of meningitis/encephalitis
-No other clear primary source of Streptococcus bacteremia, further identification of subtype of Streptococcus pending
-Repeat blood culture has been ordered, if no clearance will require further testing to rule out endocarditis
-Discussed with ID and patient antibiotic has been changed to Unasyn
-Patient off of vasopressors overnight, needed to be resumed again, wean off as possible
acute hypoxemic resp failure -Improving
-89% on NC (mouth breather)-
-likely due to sepsis as no PNA on CXR
-appreciate pulm/court bailiff--resolved
DAVID
-Creatinine has trended down
-Likely prerenal in nature with sepsis/hypotension related
-Avoid NSAID use as possible. Avoid nephrotoxic medication
Euvolemic hyponatremia -resolved
-Patient with 3% Hypertonic saline
-acute drop could be due to sepsis, SIADH from back pain, adrenal insufficiency
anemia--likely of chronic disease--no signs of bleeding--iron and TIBC low--check TSH--ferritin high but also is acute phase reactant--retic count elevated at 4.2--B12 within normal limits--with fluid resuscitation HGB dropped to 7.1--transfuse pRBC
Chronic pain
-Limit narcotic use. Patient has not been using Valium at home.
hypothyroid--hold levothyroxine for now--check TSH
rheumatoid arthritis/spinal stenosis
Chronic steroids use
--on prednisone, leflunamide, MTX, sulfasalazine--holding all--wean stress dose steroids--spinal stimulator
essential HTN -- hold all BP meds--off pressors
HLD--hold pravastatin
DVT proph--SCDs
code status -- DNR
Total critical care time 38 mins . Total critical care time documented does not include time spent on separately billed procedures or the services of residents, students, nurses or physician assistants. I personally saw and examined the patient. I
have reviewed all diagnostic interpretations and treatment plans as written. I was present for the diaz portions of any procedures performed and the inclusive time noted in any critical care statement. Critical care time includes patient management
by me, time spent at the patients bedside, time to review lab and imaging results, discussing patient care, documentation in the medical record, and time spent with the family or caregiver.
--- NOTE | 2024-02-04 20:00 | PTCARENOTE ---
Received patient at 1900. Pt. awake and oriented. Currently denies pain/discomfort. Afebrile. Heart rhythm Afib (known). Blood pressure normotensive. Currently on room air. Lungs sound diminished. Regular diet, okay appetite. Incontinent of bowel
and bladder. Skin as documented. Discussed plan of care. Vital signs stable at this time.
[2024-02-04] MEDS: HEPARIN 5000 UNITS SC (20:38)
[2024-02-05] VITALS (24 sets, daily range): BP systolic 80–142; BP diastolic 42–95; BMI 27.6
[2024-02-05] MEDS: UNASYN IV ×2 (01:10→13:13)
[2024-02-05 04:29] LABS: Erythrocyte Sed Rate 64 mm/hour (0-20)
[2024-02-05 04:30] LABS: % Basophils 0.5 % (0-2); % Eosinophils 0.8 % (0-6); % Immature Granulocytes 0.8 % (0-0.5); % Lymphocytes 4.8 % (20.5-51.1); % Monocytes 9.8 % (1.7-9.3); % Neutrophils 83.3 % (42.2-75.2); Absolute Basophils 0.1 10^3/uL (0-0.2); Absolute Eosinophils 0.1 10^3/uL (0-0.7); Absolute Immature Granulocytes 0.1 10^3/uL (0-0.05); Absolute Lymphocytes 0.5 10^3/uL (1.2-3.4); Absolute Monocytes 1.1 10^3/uL (0.1-0.6); Hematocrit 22.4 % (37.0-47.0); Mean Corp Hgb Conc. 35.7 g/dL (33.0-37.0); Mean Corpuscular Hgb 35.6 pg (27.0-31.0); Mean Corpuscular Volume 99.6 fL (81.0-99.0); Mean Platelet Volume 10.9 fL (7.4-10.4); Nucleated Red Blood Cells % 0 %; Platelet Count 106 10^3/uL (130-400); Red Blood Cell Count 2.25 10^6/uL (4.20-5.40); Red Cell Dist. Width 14.2 % (11.5-14.5); White Blood Cell Count 10.8 10^3/uL (4.8-10.8)
[2024-02-05 04:39] LABS: Blood Urea Nitrogen 64 mg/dl (7-17); Calcium 7.9 mg/dl (8.4-10.2); Carbon Dioxide 22 mmol/L (22-30); Chloride 98 mmol/L (98-107); Estimated Creatinine Clearance 19 ml/min; Glucose 100 mg/dl (70-99); Potassium 3.8 mmol/L (3.5-5.1); Sodium 129 mmol/L (135-145); eGFR 25.08
--- NOTE | 2024-02-05 07:56 | W.PN.NEPH.PH ---
Today's Communication / Plan
-
maintain MAP >65
do not remove pompa
follow bmp
add hydrocortison as patient chronically on steroids and hypotensive
Assessment/Plan
-
Assessment
Sepsis
Hypotension
Iron deficiency anemia
Thrombocytopenia
Acute kidney injury
CKD unknown stage, atrophic left kidney
Hyponatremia
Fever/strep bacteremia
Plan
sodium up to 135 following hypertonic now down to 129 again
Creatinine up to 1.9 and sodium down to 129, uop only 250cc via pompa
Hemodynamically labile on midodrine
Keep mean arterial pressure greater than 65, use pressors if necessary
-Will add hydrocortisone as patient has hypotension on chronic prednisone support
Source of sepsis currently uncertain:urine with Ecoli and blood times one strep: on unasyn
metabolic acidosis persists
-
-
Date of Service: February 05, 2024
CC / HPI / ROS
-
Chief Complaint:
Hyponatremia
CKD
History of Present Illness:
Serum sodium up to 129 following 250 cc of 3% saline
Hemodynamically labile
Creatinine worsening to 1.9
Review of Systems:
Febrile
oliguric
back pain
Labs
-
Labs:
WBC 10.8 10^3/uL (4.8-10.8) 02/05/24 03:42
RBC 2.25 10^6/uL (4.20-5.40) L 02/05/24 03:42
Hgb 8.0 g/dL (12.0-16.0) L 02/05/24 03:42
Hct 22.4 % (37.0-47.0) L 02/05/24 03:42
Plt Count 106 10^3/uL (130-400) L 02/05/24 03:42
Sodium 129 mmol/L (135-145) L 02/05/24 03:42
Potassium 3.8 mmol/L (3.5-5.1) 02/05/24 03:42
Chloride 98 mmol/L (98-107) 02/05/24 03:42
Carbon Dioxide 22 mmol/L (22-30) 02/05/24 03:42
BUN 64 mg/dl (7-17) H 02/05/24 03:42
Creatinine 1.9 mg/dL (0.6-1.0) H 02/05/24 03:42
eGFR 25.08 02/05/24 03:42
Glucose 100 mg/dl (70-99) H 02/05/24 03:42
Calcium 7.9 mg/dl (8.4-10.2) L 02/05/24 03:42
Phosphorus 3.0 mg/dl (2.5-4.5) 02/05/24 03:42
Albumin 2.5 g/dl (3.5-5.0) L 02/03/24 04:11
Physical Exam
-
Vital Signs:
Vital Signs
Temp Pulse Resp BP Pulse Ox
98.5 F 77 21 106/42 96
02/05/24 07:00 02/05/24 06:00 02/05/24 06:00 02/05/24 06:00 02/05/24 06:00
Cardiovascular:: Regular rate and rhythm
Respiratory:: Bilateral: Coarse
Lung Excursion:: Normal
Abdomen:: Nontender and Soft
Bowel Sounds:: Decreased
Pompa Catheter: Yes
[2024-02-05] MEDS: SYNTHROID 50 MCG PO (08:24)
[2024-02-05] MEDS: DELTASONE 5 MG PO (08:24)
[2024-02-05] MEDS: PROTONIX 40 MG PO (08:24)
[2024-02-05] MEDS: ProAmatine 2.5 MG PO ×3 (08:24→17:42)
[2024-02-05] MEDS: HEPARIN 5000 UNITS SC ×2 (08:25→20:30)
[2024-02-05] MEDS: LIDOCAINE 4% PATCH 1 PATCH TOPICAL (08:25)
--- NOTE | 2024-02-05 08:45 | W.PN.HOSP.TC ---
Today's Communication/Plan
-
see note
Assessment / Plan
Assessment / Plan
CT T/L spine
1. No findings at CT suspicious for osteodiscitis. No abnormal paraspinal collection is identified within the limits of noncontrast CT.
2. Gallbladder dilation as above. No calcified gallstones identified. As warranted, this could be further evaluated with follow-up ultrasound.
3. Multilevel severe degenerative changes lumbar spine as described. Multilevel moderate degenerative changes thoracic spine as described. No acute fracture or malalignment.
4. Small bilateral pleural effusions with adjacent atelectasis, right greater than left.
5. Approximately 4 mm focal/nodular opacity in the left upper lobe. May be related to scarring, indeterminate. Could be further evaluated with follow-up CT chest non emergently.

septic shock -improved
Acute toxic metabolic encephalopathy -improved
Streptococcus bacteremia
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
-Patient required to be started on vasopressors again
-Mentation is better and low chances of meningitis/encephalitis
-No other clear primary source of Streptococcus bacteremia, further identification of subtype of Streptococcus pending
-Repeat blood culture has been ordered, if no clearance will require further testing to rule out endocarditis
-Discussed with ID and patient antibiotic has been changed to Unasyn
-Patient blood pressure soft overnight although did not require vasopressor
-check US gb/liver as some inflammatory changes on CT L spine report, no RUQ pain, n/v
Acute hypoxemic resp failure -Improving
-likely due to sepsis as no PNA on CXR
-Currently on oxygen through nasal cannula, wean off as
DAVID
-Creatinine elevated again today
-Discussed with nephrology and concern of possible episodic hypotension aggravating renal failure
-Likely prerenal in nature with sepsis/hypotension related
-Avoid nephrotoxic medication
Euvolemic hyponatremia -resolved
-Urine na 12 and Uosm 340
-Patient with 3% Hypertonic saline
-acute drop could be due to sepsis, SIADH from back pain, adrenal insufficiency
-Patient sodium again down to 129 today, await further nephro recommendation
Chronic anemia
-No signs of active bleeding
-Ferritin 494, low serum Iron/ unable to count TSAT
-Anemia of chronic disease with RA likely as TSAT low but ferritin much higher than 100,
-Required 1 unit of blood transfusion
Chronic steroids use
-on prednisone 5mg/d at home
-nephro recommended starting IV hydrocortisone 25mg Q8
Chronic pain
-Limit narcotic use. Patient has not been using Valium at home.
Hypothyroid
-resume back on levothyroxine
rheumatoid arthritis/spinal stenosis
Chronic steroids use
--on prednisone, leflunamide, MTX, sulfasalazine
Essential HTN
-hold BP meidcation for now with soft BP
HLD
-resume pravastatin
DVT proph--SCDs
code status -- DNR
Totalt time spent : 53 mins
Anticipated Discharge: > 48 hours
Subjective/Interval History
-
Date of Service: February 05, 2024
resting comfortably in bed
Complaining of some back pain
Blood pressure was soft overnight although did not require vasopressors
No other acute issues reported
Objective Data
-
Labs:
Laboratory Results
02/05/24
03:42
WBC 10.8
Hgb 8.0 L
Hct 22.4 L
Plt Count 106 L
Sodium 129 L
Potassium 3.8
Chloride 98
Carbon Dioxide 22
BUN 64 H
Creatinine 1.9 H
Glucose 100 H
Calcium 7.9 L
Vital Signs:
Vital Signs
Temp Pulse Resp BP Pulse Ox
98.5 F 77 21 106/42 96
02/05/24 07:00 02/05/24 06:00 02/05/24 06:00 02/05/24 06:00 02/05/24 06:00
I&O
02/04/24 02/05/24 02/06/24
06:59 06:59 06:59
Intake Total 2691.4 / 2706.4 1015 / 1015
Output Total 689 / 739 300 / 300
Balance 2001.4 / 1967.4 715 / 715
Review of Systems
-
Respiratory: Reports No Symptoms
Cardiac: Reports No Symptoms
Abdomen/GI: Reports No Symptoms
Physical Exam
-
General: No Apparent Distress and Comfortable
HEENT: Negative Oxygen
Respiratory: Clear to Auscultation
Cardiac: Regular Rhythm and S1/S2; Negative Murmur or Rub
GI: Soft, Nontender and Nondistended
Musculoskeletal: No Edema
Neuro: Awake, Alert, Oriented, No Motor Deficits and Nonfocal/Grossly Intact
Psych: Calm
--- NOTE | 2024-02-05 10:12 | W.PN.ID1 ---
Date of Service
Date of Service: February 05, 2024
Today's Communication
continue unasyn
lfts in the am
Assessment / Plan
Clinical sepsis; improved
Leukocytosis
Streptococcal bacteremia
- source unclear at present
Fever; improved
Thrombocytopenia
DAVID
- improved
Hypertension
Dyslipidemia
Hypothyroidism
Spinal stenosis
Severe lumbar scoliosis
Rheumatoid arthritis
Hemorrhoids
Recommendations:
Overall, patient appears clinically improved from admission.
02/01 Blood cultures strep x2, cultures were 30 min apart
02/02 blood cultures x2 no growth to date
02/03 a single blood
Echo: no vegetations
CT thoracic and lumbar spine without contrast: no evidence of osteodiscitis or phlegmon - might eventually consider MRI
- gallbladder dilation is noted
- recheck lfts in the AM
C/w Unasyn for today. Further recommendations as additional data is returned.
Note PICC was placed while bacteremic
Continue to monitor white count and temperature curve.
Continue with supportive measures.
����������������������������������������������������������
Chief Complaint
-: Leukocytosis, Clinical Sepsis and Bacteremia
Subjective / Review of Systems
afebrile
pressors tapered off
severe chronic back pain require lidocaine patch and magdalena
discussed with patient and at bedside
Vital Signs / Physical Exam
Vital Signs
Vital Signs
Temp Pulse Resp BP Pulse Ox
98.5 F 86 21 124/93 96
02/05/24 07:00 02/05/24 09:30 02/05/24 09:30 02/05/24 09:00 02/05/24 09:30
Physical Exam
Constitutional: No Acute Distress and Chronically Ill
Cardiovascular: Regular Rate and S1/S2; Negative Murmur or Rub
Pulmonary: Clear and Symmetric; Negative Wheezes or Rales
Gastrointestinal: Soft, Non Tender, Non Distended and Normal Bowel Sounds
Skin: Warm and Dry; Negative Rash or Jaundice
Objective Data
Lab Data
Lab Results
02/05/24 03:42
02/05/24 03:42
ESR 64 mm/hour (0-20) H 02/05/24 03:42
PT 18.3 Sec (11.4-14.6) H 02/03/24 04:11
INR 1.51 02/03/24 04:11
APTT 24.4 Sec (23.4-35.0) 02/03/24 04:11
Estimated Creat Clear 19 ml/min 02/05/24 03:42
Lactic Acid Cancelled 02/03/24 06:00
Total Bilirubin 1.3 mg/dl (0.2-1.3) 02/03/24 04:11
AST 59 U/L (14-36) H 02/03/24 04:11
ALT 23 U/L (0-35) 02/03/24 04:11
Alkaline Phosphatase 46 U/L (38-126) 02/03/24 04:11
C-Reactive Protein 229.40 mg/L (0.0-10.00) H 02/05/24 03:42
Most recent labs reviewed as above in addition
L shift persists
ABD US report pending
thoracic and lumbar spine cts
Micro Results:
02/04/24 20:37 Blood Culture - Pending
Blood/Venous
02/03/24 23:11 Blood Culture - Preliminary
Blood/Venous No Growth in 24 hours- Final report to follow
02/03/24 23:11 Blood Culture - Preliminary
Blood/Venous No Growth in 24 hours- Final report to follow
02/02/24 12:16 Blood Culture - Preliminary
Blood/Venous Streptococcus species
Gram Stain - Final
02/02/24 12:47 Blood Culture - Preliminary
Blood/Venous Streptococcus species
Gram Stain - Final
02/02/24 16:15 Influenza Types A & B ([facility]) - Final
Nasal Swab Negative for Influenza A & B, NAAT
Negative results must be combined with clinical observations
and patient history.
Nucleic Acid Amplification test (NAAT)performed on the
[employer] platform.
Imaging:
02/02/2024 CXR (portable): New right upper extremity PICC line in place. Mild cardiomegaly. Severe multilevel discogenic degenerative disease. Osteoporosis noted. Lung volumes are normal. Mild amount of scarring or subsegmental atelectasis in
the left lower lung. No focal airspace opacities noted. Please see full dictation for additional detail. Film personally viewed.
02/02/2024 CT abdomen/pelvis: MARKEDLY LIMITED STUDY as a result of numerous factors including marked beam hardening artifact from the patient's bilateral upper extremities, beam hardening artifact from left hip arthroplasty, lack of oral contrast
and lack of intravenous contrast. Tiny bilateral pleural effusions and bilateral lower lobe subsegmental atelectasis which obscure tiny right lower lobe pulmonary nodule seen on prior CT. Approximate 0.6 cm slightly high attenuation lesion
laterally left kidney which could represent a complex/proteinaceous cyst or solid mass, cannot be differentiated on the basis of this study without intravenous contrast, indeterminate. No intestinal obstruction or free air. Redundant sigmoid colon
with diverticulosis. See full dictation for additional detail. Film personally viewed.
--- NOTE | 2024-02-05 13:27 | PTCARENOTE ---
Rec'd pt at 0700. Pt to US abdomen via stretcher this am. at bedside once pt back to room. Pt c/o pain with repositioning, comfortable at rest. Monitor Afib 70-80's. Pox 96% 2LNC. +BS, abd soft/nt. Poor appetite. Incont for soft bernardo stool.
Awaiting transfer to IMU.
[2024-02-05] MEDS: SOLU-CORTEF 25 MG IV (15:50)
--- NOTE | 2024-02-05 19:45 | PTCARENOTE ---
Received patient at 1900. Pt. currently in bed. Awake, alert, and oriented. Hard of hearing. Hearing aids at bedside. Denies pain/discomfort. Afebrile. Heart rhythm afib. Blood pressure normotensive. Currently on room air. Lungs sound diminished.
Regular diet is ordered, poor appetite. Pt. incontinent of bowel and bladder. Skin as documented. Discussed plan of care with patient. Vital signs stable at this time.
[2024-02-05 20:17] LABS: Haptoglobin 70 mg/dL (30-200)
[2024-02-06] VITALS (19 sets, daily range): BP systolic 94–157; BP diastolic 54–91; BMI 27.5
[2024-02-06] MEDS: SOLU-CORTEF 25 MG IV ×3 (00:44→20:49)
[2024-02-06] MEDS: UNASYN IV ×2 (02:09→13:15)
[2024-02-06 04:45] LABS: Hematocrit 22.4 % (37.0-47.0); Mean Corp Hgb Conc. 35.7 g/dL (33.0-37.0); Mean Corpuscular Hgb 35.7 pg (27.0-31.0); Mean Platelet Volume 10.8 fL (7.4-10.4); Platelet Count 114 10^3/uL (130-400); Red Blood Cell Count 2.24 10^6/uL (4.20-5.40); Red Cell Dist. Width 14.1 % (11.5-14.5); White Blood Cell Count 13.2 10^3/uL (4.8-10.8)
[2024-02-06 05:05] LABS: ALT (SGPT) 19 U/L (0-35); AST (SGOT) 22 U/L (14-36); Albumin 2.4 g/dl (3.5-5.0); Alkaline Phosphatase 67 U/L (38-126); Blood Urea Nitrogen 62 mg/dl (7-17); Calcium 7.9 mg/dl (8.4-10.2); Carbon Dioxide 23 mmol/L (22-30); Chloride 100 mmol/L (98-107); Direct Bilirubin 0.9 mg/dl (0.0-0.4); Estimated Creatinine Clearance 22 ml/min; Glucose 142 mg/dl (70-99); Potassium 3.9 mmol/L (3.5-5.1); Sodium 134 mmol/L (135-145); Total Bilirubin 0.9 mg/dl (0.2-1.3); Total Protein 4.4 g/dl (6.3-8.2); eGFR 28.67
[2024-02-06] MEDS: SYNTHROID 50 MCG PO (05:39)
--- NOTE | 2024-02-06 07:51 | W.PN.NEPH.PH ---
Today's Communication / Plan
-
observe
Assessment/Plan
-
Assessment
Sepsis
Hypotension
Iron deficiency anemia
Thrombocytopenia
Acute kidney injury
CKD unknown stage, atrophic left kidney
Hyponatremia
Fever/strep bacteremia
Plan
sodium up to 134
Creatinine down to 1.7 urine output 300 cc recorded
Hemodynamically labile on midodrine
Keep mean arterial pressure greater than 65
Added hydrocortisone as patient was hypotension on chronic prednisone support, can begin to wean tomorrow
Source of sepsis currently uncertain:urine with Ecoli and blood times one strep: on unasyn
metabolic acidosis improved
-
-
Date of Service: February 06, 2024
CC / HPI / ROS
-
Chief Complaint:
Hyponatremia
CKD
History of Present Illness:
Serum sodium up to 134
Hemodynamically labile on midodrine and IV hydrocortisone
Creatinine improved to 1.7
Review of Systems:
Febrile
nonoliguric
back pain
Labs
-
Labs:
WBC 13.2 10^3/uL (4.8-10.8) H 02/06/24 04:33
RBC 2.24 10^6/uL (4.20-5.40) L 02/06/24 04:33
Hgb 8.0 g/dL (12.0-16.0) L 02/06/24 04:33
Hct 22.4 % (37.0-47.0) L 02/06/24 04:33
Plt Count 114 10^3/uL (130-400) L 02/06/24 04:33
Sodium 134 mmol/L (135-145) L 02/06/24 04:33
Potassium 3.9 mmol/L (3.5-5.1) 02/06/24 04:33
Chloride 100 mmol/L (98-107) 02/06/24 04:33
Carbon Dioxide 23 mmol/L (22-30) 02/06/24 04:33
BUN 62 mg/dl (7-17) H 02/06/24 04:33
Creatinine 1.7 mg/dL (0.6-1.0) H 02/06/24 04:33
eGFR 28.67 02/06/24 04:33
Glucose 142 mg/dl (70-99) H 02/06/24 04:33
Calcium 7.9 mg/dl (8.4-10.2) L 02/06/24 04:33
Phosphorus 3.0 mg/dl (2.5-4.5) 02/05/24 03:42
Albumin 2.4 g/dl (3.5-5.0) L 02/06/24 04:33
Physical Exam
-
Vital Signs:
Vital Signs
Temp Pulse Resp BP Pulse Ox
98.7 F 92 17 147/81 97
02/06/24 04:00 02/06/24 06:30 02/06/24 06:30 02/06/24 06:00 02/06/24 04:00
Cardiovascular:: Regular rate and rhythm
Respiratory:: Bilateral: Coarse
Lung Excursion:: Normal
Abdomen:: Nontender and Soft
Bowel Sounds:: Decreased
Extremity Edema:: +1: Bilateral:
Rosa Catheter: No
[2024-02-06] MEDS: ProAmatine 2.5 MG PO ×2 (08:59→18:18)
[2024-02-06] MEDS: LIDOCAINE 4% PATCH 1 PATCH TOPICAL (08:59)
[2024-02-06] MEDS: PROTONIX 40 MG PO (08:59)
[2024-02-06] MEDS: HEPARIN 5000 UNITS SC ×2 (09:00→20:50)
--- NOTE | 2024-02-06 09:54 | W.PN.ID1 ---
Date of Service
Date of Service: February 06, 2024
Today's Communication
c/w unasyn
Assessment / Plan
Clinical sepsis; improved
Leukocytosis
Streptococcal bacteremia
- source unclear at present
Fever; improved
Thrombocytopenia
DAVID
- improved
Hypertension
Dyslipidemia
Hypothyroidism
Spinal stenosis
Severe lumbar scoliosis
Rheumatoid arthritis
Hemorrhoids
Recommendations:
Overall, patient appears clinically improved from admission.
02/01 Blood cultures strep x2, cultures were 30 min apart
02/02 blood cultures x2 no growth to date
02/03 a single blood culture was sent
further blood cultures pending 02/02 culture results
Echo: no vegetations
CT thoracic and lumbar spine without contrast: no evidence of osteodiscitis or phlegmon - might eventually consider MRI
- gallbladder dilation is noted
- recheck lfts in the AM
C/w Unasyn for today. Further recommendations as additional data is returned.
Note PICC was placed while bacteremic
Continue to monitor white count and temperature curve.
Continue with supportive measures.
����������������������������������������������������������
Chief Complaint
-: Leukocytosis, Clinical Sepsis and Bacteremia
Subjective / Review of Systems
afebrile
bp stable
'I feel cold' no other complaints
Vital Signs / Physical Exam
Vital Signs
Vital Signs
Temp Pulse Resp BP Pulse Ox
97.8 F 87 17 139/91 97
02/06/24 08:24 02/06/24 08:00 02/06/24 08:00 02/06/24 08:00 02/06/24 04:00
Physical Exam
Constitutional: No Acute Distress
Cardiovascular: Regular Rate and S1/S2; Negative Murmur or Rub
Pulmonary: Clear and Symmetric; Negative Wheezes or Rales
Gastrointestinal: Soft, Non Tender, Non Distended and Normal Bowel Sounds
Skin: Warm and Dry; Negative Rash or Jaundice
Objective Data
Lab Data
Lab Results
02/06/24 04:33
02/06/24 04:33
ESR 64 mm/hour (0-20) H 02/05/24 03:42
PT 18.3 Sec (11.4-14.6) H 02/03/24 04:11
INR 1.51 02/03/24 04:11
APTT 24.4 Sec (23.4-35.0) 02/03/24 04:11
Estimated Creat Clear 22 ml/min 02/06/24 04:33
Lactic Acid Cancelled 02/03/24 06:00
Total Bilirubin 0.9 mg/dl (0.2-1.3) 02/06/24 04:33
AST 22 U/L (14-36) 02/06/24 04:33
ALT 19 U/L (0-35) 02/06/24 04:33
Alkaline Phosphatase 67 U/L (38-126) 02/06/24 04:33
C-Reactive Protein 229.40 mg/L (0.0-10.00) H 02/05/24 03:42
Most recent labs reviewed.
Micro Results:
02/03/24 23:11 Blood Culture - Preliminary
Blood/Venous No Growth in 48 hours- Final report to follow
02/03/24 23:11 Blood Culture - Preliminary
Blood/Venous No Growth in 48 hours- Final report to follow
02/04/24 20:37 Blood Culture - Preliminary
Blood/Venous No Growth in 24 hours- Final report to follow
02/02/24 12:47 Blood Culture - Preliminary
Blood/Venous Streptococcus species
Gram Stain - Final
02/02/24 12:16 Blood Culture - Preliminary
Blood/Venous Streptococcus species
Gram Stain - Final
02/02/24 16:15 Influenza Types A & B ([facility]) - Final
Nasal Swab Negative for Influenza A & B, NAAT
Negative results must be combined with clinical observations
and patient history.
Nucleic Acid Amplification test (NAAT)performed on the
[employer] platform.
Imaging:
02/02/2024 CXR (portable): New right upper extremity PICC line in place. Mild cardiomegaly. Severe multilevel discogenic degenerative disease. Osteoporosis noted. Lung volumes are normal. Mild amount of scarring or subsegmental atelectasis in
the left lower lung. No focal airspace opacities noted. Please see full dictation for additional detail. Film personally viewed.
02/02/2024 CT abdomen/pelvis: MARKEDLY LIMITED STUDY as a result of numerous factors including marked beam hardening artifact from the patient's bilateral upper extremities, beam hardening artifact from left hip arthroplasty, lack of oral contrast
and lack of intravenous contrast. Tiny bilateral pleural effusions and bilateral lower lobe subsegmental atelectasis which obscure tiny right lower lobe pulmonary nodule seen on prior CT. Approximate 0.6 cm slightly high attenuation lesion
laterally left kidney which could represent a complex/proteinaceous cyst or solid mass, cannot be differentiated on the basis of this study without intravenous contrast, indeterminate. No intestinal obstruction or free air. Redundant sigmoid colon
with diverticulosis. See full dictation for additional detail. Film personally viewed.
--- NOTE | 2024-02-06 14:49 | W.PN.HOSP.TC ---
Today's Communication/Plan
-
downgrade to med/surg
f/u renal function
f/u repeat blood cx report
Assessment / Plan
Assessment / Plan
CT T/L spine
1. No findings at CT suspicious for osteodiscitis. No abnormal paraspinal collection is identified within the limits of noncontrast CT.
2. Gallbladder dilation as above. No calcified gallstones identified. As warranted, this could be further evaluated with follow-up ultrasound.
3. Multilevel severe degenerative changes lumbar spine as described. Multilevel moderate degenerative changes thoracic spine as described. No acute fracture or malalignment.
4. Small bilateral pleural effusions with adjacent atelectasis, right greater than left.
5. Approximately 4 mm focal/nodular opacity in the left upper lobe. May be related to scarring, indeterminate. Could be further evaluated with follow-up CT chest non emergently.

septic shock -improved
Acute toxic metabolic encephalopathy -improved
Streptococcus anginosus bacteremia
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
-Patient required on/off vasopressors for first 48hrs.
-Mentation is better and low chances of meningitis/encephalitis
-Streptococcus identified as strep anginosus. will check if patient had any dental abscess/cavities.
-Repeat blood culture has been ordered and has been showing no growth so far.
-Liver/abd US neg.
-Discussed with ID and patient antibiotic has been changed to Unasyn
Acute hypoxemic resp failure -Improving
-likely due to sepsis as no PNA on CXR
-Currently on oxygen through nasal cannula, wean off as possible
DAVID
-Creatinine trending down and 1.7 today
-Discussed with nephrology and concern of possible episodic hypotension aggravating renal failure
-Avoid nephrotoxic medication
Euvolemic hyponatremia -resolved
-Urine na 12 and Uosm 340
-Patient with 3% Hypertonic saline
-acute drop could be due to sepsis, SIADH from back pain, adrenal insufficiency
-Na improved to 134 today.
Chronic anemia
-No signs of active bleeding
-Ferritin 494, low serum Iron/ unable to count TSAT
-Anemia of chronic disease with RA likely as TSAT low but ferritin much higher than 100,
-Required 1 unit of blood transfusion
Chronic steroids use
-on prednisone 5mg/d at home
-Patient steroids decreased to solucortef 25mg q12h
Chronic pain
-Limit narcotic use. Patient has not been using Valium at home.
Hypothyroid
-resume back on levothyroxine
rheumatoid arthritis/spinal stenosis
Chronic steroids use
-on prednisone, leflunamide, MTX, sulfasalazine
Essential HTN
-will resume BP medication once appropriate
HLD
-resume pravastatin
DVT proph--SCDs
code status -- DNR
Care plan discussed with nephro.
Anticipated Discharge: > 48 hours
Subjective/Interval History
-
Date of Service: February 06, 2024
afebrile overnight
denies of having any new issue
Objective Data
-
Labs:
Laboratory Results
02/06/24
04:33
WBC 13.2 H
Hgb 8.0 L
Hct 22.4 L
Plt Count 114 L
Sodium 134 L
Potassium 3.9
Chloride 100
Carbon Dioxide 23
BUN 62 H
Creatinine 1.7 H
Glucose 142 H
Calcium 7.9 L
Total Bilirubin 0.9
AST 22
ALT 19
Alkaline Phosphatase 67
Vital Signs:
Vital Signs
Temp Pulse Resp BP Pulse Ox
97.7 F 87 23 132/59 93
02/06/24 12:27 02/06/24 13:00 02/06/24 13:00 02/06/24 13:00 02/06/24 13:00
I&O
02/05/24 02/06/24 02/07/24
06:59 06:59 06:59
Intake Total 1015 / 1015 440 / 440 240 / 240
Output Total 300 / 300 300 / 300 250 / 250
Balance 715 / 715 140 / 140 -10 / -10
Review of Systems
-
Respiratory: Reports No Symptoms
Cardiac: Reports No Symptoms
Abdomen/GI: Reports No Symptoms
Physical Exam
-
General: No Apparent Distress and Comfortable
HEENT: Negative Oxygen
Respiratory: Clear to Auscultation
Cardiac: Regular Rhythm and S1/S2; Negative Murmur or Rub
GI: Soft, Nontender and Nondistended
Musculoskeletal: No Edema
Neuro: Awake, Alert, Oriented, No Motor Deficits and Nonfocal/Grossly Intact
Psych: Calm
--- NOTE | 2024-02-06 18:22 | PTCARENOTE ---
Patient received from ICU into room 407-01. Vital signs stable. Patient denies pain. Oriented to room and use of call younger, and television and bed controls. Patient verbalize understanding of teaching.
[2024-02-06] MEDS: ROXICODONE 5 MG PO (18:37)
[2024-02-06] MEDS: TYLENOL 650 MG PO (20:52)
[2024-02-07] MEDS: UNASYN IV ×2 (01:30→14:59)
[2024-02-07] MEDS: SYNTHROID 50 MCG PO (05:06)
[2024-02-07 06:00] VITALS: BMI 27.7
[2024-02-07 06:04] LABS: Blood Urea Nitrogen 61 mg/dl (7-17); Calcium 8.1 mg/dl (8.4-10.2); Carbon Dioxide 23 mmol/L (22-30); Chloride 100 mmol/L (98-107); Estimated Creatinine Clearance 26 ml/min; Glucose 101 mg/dl (70-99); Potassium 3.9 mmol/L (3.5-5.1); Sodium 135 mmol/L (135-145); eGFR 36.19
--- NOTE | 2024-02-07 06:50 | W.PN.HOSP.TC ---
Addendum entered and electronically signed by Juan F Young MD 02/07/24 13:51:
I saw and evaluated the patient. I reviewed the resident�s note and agree with findings and plan as documented in the resident�s note.
CT T/L spine
1. No findings at CT suspicious for osteo-discitis. No abnormal paraspinal collection is identified within the limits of noncontrast CT.
2. Gallbladder dilation as above. No calcified gallstones identified. As warranted, this could be further evaluated with follow-up ultrasound.
3. Multilevel severe degenerative changes lumbar spine as described. Multilevel moderate degenerative changes thoracic spine as described. No acute fracture or malalignment.
4. Small bilateral pleural effusions with adjacent atelectasis, right greater than left.
5. Approximately 4 mm focal/nodular opacity in the left upper lobe. May be related to scarring, indeterminate. Could be further evaluated with follow-up CT chest non emergently.

septic shock -improved
Acute toxic metabolic encephalopathy -improved
Streptococcus anginosus bacteremia
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
-Patient required on/off vasopressors for first 48hrs.
-Mentation is better and low chances of meningitis/encephalitis
-Streptococcus identified as strep anginosus. patient had some dental infection? pending to get cap - contacted [facility] and patient's dentist off today, will return call in morning.
-Repeat blood culture has been ordered and has been showing no growth so far.
-Liver/abd US neg.
-Discussed with ID and patient antibiotic has been changed to Unasyn
Acute hypoxemic resp failure -Improving
-likely due to sepsis as no PNA on CXR
-Currently on oxygen through nasal cannula, wean off as possible
DAVID - Improving
-Creatinine trending down and 1.7 today
-Discussed with nephrology and concern of possible episodic hypotension aggravating renal failure
-Avoid nephrotoxic medication
Euvolemic hyponatremia -resolved
-Urine na 12 and Uosm 340
-Patient with 3% Hypertonic saline
-acute drop could be due to sepsis, SIADH from back pain, adrenal insufficiency
Chronic anemia
-No signs of active bleeding
-Ferritin 494, low serum Iron/ unable to count TSAT
-Anemia of chronic disease with RA likely as TSAT low but ferritin much higher than 100,
-Required 1 unit of blood transfusion
Chronic steroids use
-on prednisone 5mg/d at home
-stop further IV solucortef as patient hypertensive today -resume home dose prednisone from morning.
Chronic pain
-Limit narcotic use. Patient has not been using Valium at home.
Hypothyroid
-resume back on levothyroxine
rheumatoid arthritis/spinal stenosis
Chronic steroids use
-on prednisone, leflunamide, MTX, sulfasalazine
Essential HTN
-resume coreg, hypertension uncontrolled
HLD
-resume pravastatin
DVT proph--SCDs
code status -- DNR
Total time spent : 54 mins
Original Note:
Today's Communication/Plan
-
Right arm ultrasound to rule out deep venous thrombosis
consult infectious disease about antibiotic continuation at home
start her blood pressure medications
start home dose of steroids
Assessment / Plan
Assessment / Plan

IMPRESSION
Halina Dawn, an 88/female admitted with septic shock (streptococcus anginosus bacteremia on blood cultures) requiring on/off vasopressors now off vasopressors and oxygen, is immunocompromised patient with chronic steroids/leflunomide/MTX for
rheumatoid arthritis,has severe back pain ,spinal stenosis and scoliosis(spinal stimulator placed many years ago), acute kidney injury secondary to hypotension, anemia of chronic disease and euvolemic hyponatremia.Source of sepsis is suspected to
be dental(Streptococcus anginosus bacteremia)???
ASSESSMENT AND PLAN
Sepsis/septic shock secondary to dental procedure??
-Patient gives history of dental cavity and temporary capping?need more details from dentist
-Repeat blood cultures to follow-up for bacteremia
-Get ID consult on further antibiotics, intravenous or oral and duration
-Her echocardiogram showed no vegetations on valves
-Right arm doppler ultrasound to look for any clot
Acute hypoxemic resp failure
-Improving
-patient breathing on room air
Acute kidney injury
-Creatinine down to 1.4 now
-Nephrology consult appreciated, keep monitoring creatinine
-Avoid nephrotoxic medication
Euvolemic hyponatremia
-resolved
-Urine na 12 and Uosm 340
-Patient received 3% Hypertonic saline at Na 125
-acute drop could be due to sepsis, SIADH from back pain, adrenal insufficiency
-Na improved to 135 as of today.
Anemia of chronic disease
-No signs of active bleeding
-Patient has an autoimmune disease, could be cause of anemia
-Required 1 unit of blood transfusion on admission , hgb 7.1 most likely cause was sepsis
-Patient at baseline hgb now
Chronic steroids use
-on prednisone 5mg/d at home
-start on home dose , hold solucortef
Chronic back pain
-Limit narcotic use. Patient has not been using Valium at home.
Hypothyroid
-continue levothyroxine
rheumatoid arthritis/spinal stenosis
Chronic steroids use
-on prednisone, leflunamide, MTX, sulfasalazine
Essential HTN
blood pressure 155/82
-resume BP medication
HLD
-resume pravastatin
DVT proph--SCDs
code status -- DNR
Care plan discussed with nephro.
Anticipated Discharge: 24 - 48 hours
Subjective/Interval History
-
Date of Service: February 07, 2024
Patient feels well, complains of swelling of right arm. She is starting to move and sit on chair beside her bed. Still has back pain that she rates as5/10 in intensity.
Objective Data
-
Labs:
Laboratory Results
02/07/24
05:11
Sodium 135
Potassium 3.9
Chloride 100
Carbon Dioxide 23
BUN 61 H
Creatinine 1.4 H
Glucose 101 H
Calcium 8.1 L
Vital Signs:
Vital Signs
Temp Pulse Resp BP Pulse Ox
98.8 F 94 18 142/85 93
02/06/24 23:49 02/06/24 23:49 02/06/24 23:49 02/06/24 23:49 02/06/24 23:49
I&O
02/05/24 02/06/24 02/07/24
06:59 06:59 06:59
Intake Total 1015 / 1015 440 / 440 240 / 240
Output Total 300 / 300 300 / 300 250 / 250
Balance 715 / 715 140 / 140 -10 / -10
Review of Systems
-
All other systems: Reviewed and negative
Physical Exam
-
General: Well Developed, Pain (5/10 in lower back) and Conversant
HEENT: Normocephalic and Atraumatic
Respiratory: Clear to Auscultation
Cardiac: Regular Rhythm and S1/S2
GI: Soft, Nontender, Nondistended and Normal Bowel Sounds
Genito-urinary: No Costovertebral Tender
Musculoskeletal: No Clubbing, No Cyanosis and Edema, Right Upper Extrem
Skin: Warm and Dry
Neuro: Awake, Alert, Oriented and No Motor Deficits
Hematologic / Lymphatic: No Lymphadenopathy
Psych: Calm
[2024-02-07 08:02] VITALS: BP 163/93
[2024-02-07] MEDS: ROXICODONE 5 MG PO ×2 (08:47→17:21)
[2024-02-07] MEDS: PROTONIX 40 MG PO (08:49)
[2024-02-07] MEDS: SOLU-CORTEF 25 MG IV (08:49)
[2024-02-07] MEDS: HEPARIN 5000 UNITS SC ×2 (08:50→21:39)
[2024-02-07] MEDS: LIDOCAINE 4% PATCH 1 PATCH TOPICAL (08:50)
[2024-02-07] MEDS: COREG 25 MG PO ×2 (12:19→21:39)
--- NOTE | 2024-02-07 13:27 | W.PN.ID1 ---
Date of Service
Date of Service: February 07, 2024
Today's Communication
Continue antibiotics
Assessment / Plan
Clinical sepsis; improved
Leukocytosis
Streptococcal anginosus bacteremia
- source unclear at present
Elevated ESR / CRP
Fever; improved
Thrombocytopenia
DAVID
- improved
Hypertension
Dyslipidemia
Hypothyroidism
Spinal stenosis
Severe lumbar scoliosis
Rheumatoid arthritis
Hemorrhoids
Recommendations:
Overall, patient appears clinically improved from admission.
ECHO: no vegetations noted.
CT thoracic and lumbar spine without contrast without evidence of osteodiscitis or phlegmon; not clear whether MRI can be performed given presence of spinal stimulator.
- gallbladder dilation is noted
- recheck lfts in the AM
C/w Unasyn for today. Will ask Microbiology for full sensitivities.
Note PICC was placed while bacteremic and may need replacement.
Continue to monitor white count and temperature curve.
Continue with supportive measures.
����������������������������������������������������������
Chief Complaint
-: Leukocytosis, Clinical Sepsis and Bacteremia
Subjective / Review of Systems
Patient seen and examined. Reports of ongoing low back pain which is noted to be chronic.
Review of Systems: Fever and Chills
Vital Signs / Physical Exam
Vital Signs
Vital Signs
Temp Pulse Resp BP Pulse Ox
97.6 F 89 18 155/82 95
02/07/24 08:02 02/07/24 12:19 02/07/24 08:02 02/07/24 12:19 02/07/24 12:10
Physical Exam
Constitutional: No Acute Distress, Comfortable, Chronically Ill and Non-toxic
Eyes: No Conjunctival Hemorrhage and Sclera Anicteric
Cardiovascular: Regular Rate and S1/S2; Negative Murmur
Pulmonary: Clear and Symmetric; Negative Wheezes or Rales
Gastrointestinal: Soft, Non Tender, Non Distended and Normal Bowel Sounds
Skin: Warm and Dry; Negative Rash or Jaundice
Neurological: Awake and Alert
Psychological: Calm
Objective Data
Lab Data
Lab Results
02/06/24 04:33
02/07/24 05:11
ESR 64 mm/hour (0-20) H 02/05/24 03:42
PT 18.3 Sec (11.4-14.6) H 02/03/24 04:11
INR 1.51 02/03/24 04:11
APTT 24.4 Sec (23.4-35.0) 02/03/24 04:11
Estimated Creat Clear 26 ml/min 02/07/24 05:11
Lactic Acid Cancelled 02/03/24 06:00
Total Bilirubin 0.9 mg/dl (0.2-1.3) 02/06/24 04:33
AST 22 U/L (14-36) 02/06/24 04:33
ALT 19 U/L (0-35) 02/06/24 04:33
Alkaline Phosphatase 67 U/L (38-126) 02/06/24 04:33
C-Reactive Protein 229.40 mg/L (0.0-10.00) H 02/05/24 03:42
Most recent labs reviewed.
Micro Results:
02/03/24 23:11 Blood Culture - Preliminary
Blood/Venous No Growth in 72 hours- Final report to follow
02/03/24 23:11 Blood Culture - Preliminary
Blood/Venous No Growth in 72 hours- Final report to follow
02/04/24 20:37 Blood Culture - Preliminary
Blood/Venous No Growth in 48 hours- Final report to follow
02/02/24 12:47 Blood Culture - Preliminary
Blood/Venous Streptococcus species
Gram Stain - Final
02/02/24 12:16 Blood Culture - Preliminary
Blood/Venous Streptococcus anginosus
Gram Stain - Final
02/02/24 16:15 Influenza Types A & B ([facility]) - Final
Nasal Swab Negative for Influenza A & B, NAAT
Negative results must be combined with clinical observations
and patient history.
Nucleic Acid Amplification test (NAAT)performed on the
[employer] platform.
Imaging:
02/04/2024 CT (T-spine, L-spine): No findings suspicious for osteodiscitis. No abnormal paraspinal collection is identified within the limits of this noncontrast CT. Gallbladder dilatation is noted. Multilevel severe degenerative changes of the
lumbar spine, as well as thoracic spine. No acute fracture or malalignment.
02/04/2024 ECHO (TTE): EF approximately 57%. Mild mitral regurgitation noted. No intracardiac mass or thrombus formation noted.
02/02/2024 CXR (portable): New right upper extremity PICC line in place. Mild cardiomegaly. Severe multilevel discogenic degenerative disease. Osteoporosis noted. Lung volumes are normal. Mild amount of scarring or subsegmental atelectasis in
the left lower lung. No focal airspace opacities noted. Please see full dictation for additional detail. Film personally viewed.
02/02/2024 CT abdomen/pelvis: MARKEDLY LIMITED STUDY as a result of numerous factors including marked beam hardening artifact from the patient's bilateral upper extremities, beam hardening artifact from left hip arthroplasty, lack of oral contrast
and lack of intravenous contrast. Tiny bilateral pleural effusions and bilateral lower lobe subsegmental atelectasis which obscure tiny right lower lobe pulmonary nodule seen on prior CT. Approximate 0.6 cm slightly high attenuation lesion
laterally left kidney which could represent a complex/proteinaceous cyst or solid mass, cannot be differentiated on the basis of this study without intravenous contrast, indeterminate. No intestinal obstruction or free air. Redundant sigmoid colon
with diverticulosis. See full dictation for additional detail. Film personally viewed.
[2024-02-07 14:42] VITALS: BP 177/97
--- NOTE | 2024-02-07 14:54 | W.PN.NEPH.PH ---
Today's Communication / Plan
-
follow lab s
wean IV hydrocortisone
Assessment/Plan
-
Assessment
Sepsis
Hypotension
Iron deficiency anemia
Thrombocytopenia
Acute kidney injury
CKD unknown stage, atrophic left kidney
Hyponatremia
Fever/strep bacteremia
Plan
sodium up to 135
Creatinine down to 1.4
UOP not recorded
BPs are improving, pt reports being labile baseline
cont midodrine and wean IV steroid, cont chr prednisone
Source of sepsis currently uncertain:urine with Ecoli and blood times one strep: on unasyn-ID follows
labs in am
d/w pt
-
-
Date of Service: February 07, 2024
CC / HPI / ROS
-
Chief Complaint:
Hyponatremia
CKD
History of Present Illness:
Serum sodium up to 135
Hemodynamically stable now on midodrine and IV hydrocortisone
Creatinine improved to 1.4
Review of Systems:
AFebrile
nonoliguric
no cp or sob
Labs
-
Labs:
WBC 13.2 10^3/uL (4.8-10.8) H 02/06/24 04:33
RBC 2.24 10^6/uL (4.20-5.40) L 02/06/24 04:33
Hgb 8.0 g/dL (12.0-16.0) L 02/06/24 04:33
Hct 22.4 % (37.0-47.0) L 02/06/24 04:33
Plt Count 114 10^3/uL (130-400) L 02/06/24 04:33
Sodium 135 mmol/L (135-145) 02/07/24 05:11
Potassium 3.9 mmol/L (3.5-5.1) 02/07/24 05:11
Chloride 100 mmol/L (98-107) 02/07/24 05:11
Carbon Dioxide 23 mmol/L (22-30) 02/07/24 05:11
BUN 61 mg/dl (7-17) H 02/07/24 05:11
Creatinine 1.4 mg/dL (0.6-1.0) H 02/07/24 05:11
eGFR 36.19 02/07/24 05:11
Glucose 101 mg/dl (70-99) H 02/07/24 05:11
Calcium 8.1 mg/dl (8.4-10.2) L 02/07/24 05:11
Phosphorus 3.0 mg/dl (2.5-4.5) 02/05/24 03:42
Albumin 2.4 g/dl (3.5-5.0) L 02/06/24 04:33
Physical Exam
-
Vital Signs:
Vital Signs
Temp Pulse Resp BP Pulse Ox
97.9 F 93 16 177/97 94
02/07/24 14:42 02/07/24 14:42 02/07/24 14:42 02/07/24 14:42 02/07/24 14:42
Cardiovascular:: Regular rate and rhythm
Respiratory:: Bilateral: CTA
Lung Excursion:: Normal
Abdomen:: Nontender and Soft
Extremity Edema:: None: Bilateral:
Rosa Catheter: No
[2024-02-07] MEDS: TYLENOL 650 MG PO (21:37)
[2024-02-07 23:32] VITALS: BP 133/69
--- NOTE | 2024-02-07 23:50 | VATNOTE ---
02/06 2735
Paged by PCN to removed patients PICC line due to a clot. Order in computer from [employer] for removal. Patient aware of procedure that was going to be performed and steps of removal explained to patient. Patient placed in Trendelenburg position, head
to the left and when told performed the Valsalva maneuver. PICC removed without resistance, intact and measuring at 36cm. Pressure held until bleeding subsided and dressing applied. PCN aware of removal.
[2024-02-08] MEDS: UNASYN IV (02:16)
[2024-02-08] MEDS: SYNTHROID 50 MCG PO (05:56)
[2024-02-08 06:00] VITALS: BMI 28.5
--- NOTE | 2024-02-08 06:10 | W.PN.HOSP.TC ---
Today's Communication/Plan
-
Relieve back pain through opioids for severe pain and diazepam for muscle spasms
Add Miralax for opioid induced constipation
Keep following blood cultures for any growth
start eliquis for thrombus in axillary and basilic vein
change unasyn to ceftriaxone
Assessment / Plan
Assessment / Plan

IMPRESSION
Halina Dawn, an 88/female admitted with septic shock (streptococcus anginosus bacteremia on blood cultures) requiring on/off vasopressors now off vasopressors and oxygen, is immunocompromised patient with chronic steroids/leflunomide/MTX for
rheumatoid arthritis,has severe back pain ,spinal stenosis and scoliosis(spinal stimulator placed many years ago), acute kidney injury secondary to hypotension, anemia of chronic disease and euvolemic hyponatremia.Source of sepsis is suspected to
be dental(Streptococcus anginosus bacteremia)???
ASSESSMENT AND PLAN
Sepsis/septic shock secondary to dental procedure??
Clinical sepsis; improved
-Leukocytosis
-Elevated ESR / CRP
-Fever; improved
-Patient gives history of dental cavity and temporary capping?
-Dentist contacted, superficial process??
-Repeat blood cultures to follow-up for bacteremia(no growth in 72hrs)
- ID consult appreciated
-CT thoracic and lumbar spine without contrast without evidence of osteodiscitis
- gallbladder dilation is noted
-Transition Unasyn to once daily ceftriaxone, to continue through 02/17/24
-Her echocardiogram showed no vegetations on valves
Antibiotic changed to ceftriaxone
-
Right arm swelling, secondary to clot/DVT around PICC?
Right arm doppler ultrasound showed a thrombus
FINDINGS: There is nonocclusive thrombus in the right subclavian, axillary and to a greater extent in the right basilic vein around the PICC line. No thrombus is seen in the visualized portions of the right brachial cephalic vein, and visualized
proximal antecubital fossa, limiting evaluation of thrombus is seen in the right internal jugular vein.
Take out PICC
start eliquis 10mg po bid
Acute hypoxemic resp failure
-patient had sodium bicarbonate infusion on the day of infusion (02/01), stopped once acidosis resolved on 02/01.
-Improving
-patient breathing on room air
Acute kidney injury
-Creatinine down to 1.4 now
-Nephrology consult appreciated,
keep monitoring creatinine and serum electrolytes
-Avoid nephrotoxic medication
Euvolemic hyponatremia
-Urine na 12 and Uosm 340
-Patient received 3% Hypertonic saline at Na 125 0n 02/02, stopped once within reference range
-acute drop could be due to sepsis, SIADH from back pain, adrenal insufficiency
-Na stable at 134 -135 over last 3 days
Nephrology consult appreciated
follow labs
wean IV hydrocortisone
Anemia of chronic disease
-No signs of active bleeding
-Patient has an autoimmune disease, could be cause of anemia
-Required 1 unit of blood transfusion on admission , hgb 7.1 on 02/02 most likely cause was sepsis
-Patient at baseline hgb now 8-9
Chronic steroids use for Rheumatoid arthritis
- continue on home prednisone 5mg/d
-tapered solu-cortef
-
Chronic back pain
-Limit narcotic use. Patient has not been using Valium at home.
spinal stimulator placed many years ago,not working for the patient,could not get more information from patient's doctor
Hypothyroid
-continue levothyroxine
rheumatoid arthritis/spinal stenosis?back pain
Chronic steroids use
-on prednisone, leflunamide, MTX, sulfasalazine(on hold as patient is being managed for sepsis)
-continue oral prednisone at home dose
Patient started on oxycodone for severe pain prn, diazepam for muscle spasms
constipation related to opioids explained
miralax added on as needed basis
Essential HTN
BP-133/69
-continue home BP medication
HLD
-resume pravastatin
DVT proph--SCDs
code status -- DNR
.
Anticipated Discharge: 24 - 48 hours
Subjective/Interval History
-
Date of Service: February 08, 2024
complains of back pain that she rates as a 5 on a scale of 0-10.
Objective Data
-
Vital Signs:
Vital Signs
Temp Pulse Resp BP Pulse Ox
99.0 F 90 18 133/69 96
02/07/24 23:32 02/07/24 23:32 02/07/24 23:32 02/07/24 23:32 02/07/24 23:32
I&O
02/06/24 02/07/24 02/08/24
06:59 06:59 06:59
Intake Total 440 / 440 240 / 240
Output Total 300 / 300 250 / 250
Balance 140 / 140 -10 / -10
Review of Systems
-
All other systems: Reviewed and negative
Physical Exam
-
General: Well Developed, Pain (back pain 09/16) and Conversant
HEENT: Normocephalic and Atraumatic
Respiratory: Clear to Auscultation
Cardiac: Regular Rhythm and S1/S2
GI: Soft, Nontender, Nondistended and Normal Bowel Sounds
Genito-urinary: No Costovertebral Tender
Musculoskeletal: Other (small joint deformities in hands secondary to rheumatoid arthritis)
Skin: Warm and Dry
Neuro: Awake, Alert, Oriented and No Motor Deficits
Hematologic / Lymphatic: No Lymphadenopathy
Psych: Calm
[2024-02-08 07:42] VITALS: BP 127/72
[2024-02-08] MEDS: ROXICODONE 5 MG PO (09:34)
[2024-02-08] MEDS: COREG 25 MG PO ×2 (09:40→20:33)
[2024-02-08] MEDS: LIDOCAINE 4% PATCH 1 PATCH TOPICAL (09:40)
[2024-02-08] MEDS: PROTONIX 40 MG PO (09:40)
[2024-02-08] MEDS: DELTASONE 5 MG PO (09:40)
[2024-02-08] MEDS: SOLU-CORTEF 25 MG IV (09:41)
[2024-02-08] MEDS: HEPARIN SC (09:43)
[2024-02-08 09:52] LABS: Hematocrit 24.7 % (37.0-47.0); Hemoglobin 8.6 g/dL (12.0-16.0); Mean Corp Hgb Conc. 34.8 g/dL (33.0-37.0); Mean Corpuscular Hgb 34.8 pg (27.0-31.0); Mean Platelet Volume 10.3 fL (7.4-10.4); Platelet Count 164 10^3/uL (130-400); Red Blood Cell Count 2.47 10^6/uL (4.20-5.40); Red Cell Dist. Width 14.1 % (11.5-14.5); White Blood Cell Count 12.5 10^3/uL (4.8-10.8)
[2024-02-08] MEDS: ELIQUIS 10 MG PO ×2 (10:05→20:32)
[2024-02-08 10:46] LABS: Blood Urea Nitrogen 54 mg/dl (7-17); Calcium 8.2 mg/dl (8.4-10.2); Carbon Dioxide 21 mmol/L (22-30); Chloride 101 mmol/L (98-107); Estimated Creatinine Clearance 29 ml/min; Glucose 75 mg/dl (70-99); Sodium 134 mmol/L (135-145); eGFR 39.55
--- NOTE | 2024-02-08 13:19 | W.PN.ID1 ---
Date of Service
Date of Service: February 08, 2024
Today's Communication
Continue antibiotics. Transition to the ceftriaxone. See below�
Assessment / Plan
Clinical sepsis; improved
Leukocytosis
Streptococcus anginosus bacteremia
- source unclear at present
Elevated ESR / CRP
Fever; improved
Thrombocytopenia
DAVID
- improved
Hypertension
Dyslipidemia
Hypothyroidism
Spinal stenosis
Severe lumbar scoliosis
Rheumatoid arthritis
Hemorrhoids
Recommendations:
Overall, patient appears clinically improved from admission.
ECHO: no vegetations noted.
CT thoracic and lumbar spine without contrast without evidence of osteodiscitis or phlegmon
- gallbladder dilation is noted
Transition Unasyn to once daily ceftriaxone, to continue through 02/17/24.
Note PICC was placed while bacteremic and will need replacement prior to D/C. Can transition to midline if necessary.
Continue to monitor white count and temperature curve.
Continue with supportive measures.
����������������������������������������������������������
Chief Complaint
-: Leukocytosis, Clinical Sepsis and Bacteremia
Subjective / Review of Systems
Review of Systems: No Fever and No Chills
Vital Signs / Physical Exam
Vital Signs
Vital Signs
Temp Pulse Resp BP Pulse Ox
98.3 F 87 20 127/72 95
02/08/24 07:42 02/08/24 07:42 02/08/24 07:42 02/08/24 07:42 02/08/24 08:00
Physical Exam
Constitutional: No Acute Distress, Comfortable, Chronically Ill and Non-toxic
Eyes: No Conjunctival Hemorrhage and Sclera Anicteric
Cardiovascular: Regular Rate and S1/S2; Negative S3/S4 or Murmur
Pulmonary: Clear, Symmetric and Non Labored
Gastrointestinal: Soft, Non Tender, Non Distended and Normal Bowel Sounds
Skin: Warm and Dry; Negative Rash or Jaundice
Neurological: Awake and Alert
Psychological: Calm
Objective Data
Lab Data
Lab Results
02/08/24 09:21
02/08/24 09:21
ESR 64 mm/hour (0-20) H 02/05/24 03:42
PT 18.3 Sec (11.4-14.6) H 02/03/24 04:11
INR 1.51 02/03/24 04:11
APTT 24.4 Sec (23.4-35.0) 02/03/24 04:11
Estimated Creat Clear 29 ml/min 02/08/24 09:21
Lactic Acid Cancelled 02/03/24 06:00
Total Bilirubin 0.9 mg/dl (0.2-1.3) 02/06/24 04:33
AST 22 U/L (14-36) 02/06/24 04:33
ALT 19 U/L (0-35) 02/06/24 04:33
Alkaline Phosphatase 67 U/L (38-126) 02/06/24 04:33
C-Reactive Protein 229.40 mg/L (0.0-10.00) H 02/05/24 03:42
Most recent labs reviewed.
Micro Results:
02/02/24 12:47 Blood Culture - Final
Blood/Venous Streptococcus anginosus
Gram Stain - Final
02/02/24 12:16 Blood Culture - Final
Blood/Venous Streptococcus anginosus
Gram Stain - Final
02/03/24 23:11 Blood Culture - Preliminary
Blood/Venous No Growth in 4 days- Final report to follow
02/03/24 23:11 Blood Culture - Preliminary
Blood/Venous No Growth in 4 days- Final report to follow
02/04/24 20:37 Blood Culture - Preliminary
Blood/Venous No Growth in 72 hours- Final report to follow
02/02/24 16:15 Influenza Types A & B ([facility]) - Final
Nasal Swab Negative for Influenza A & B, NAAT
Negative results must be combined with clinical observations
and patient history.
Nucleic Acid Amplification test (NAAT)performed on the
[employer] platform.
Imaging:
02/04/2024 CT (T-spine, L-spine): No findings suspicious for osteodiscitis. No abnormal paraspinal collection is identified within the limits of this noncontrast CT. Gallbladder dilatation is noted. Multilevel severe degenerative changes of the
lumbar spine, as well as thoracic spine. No acute fracture or malalignment.
02/04/2024 ECHO (TTE): EF approximately 57%. Mild mitral regurgitation noted. No intracardiac mass or thrombus formation noted.
02/02/2024 CXR (portable): New right upper extremity PICC line in place. Mild cardiomegaly. Severe multilevel discogenic degenerative disease. Osteoporosis noted. Lung volumes are normal. Mild amount of scarring or subsegmental atelectasis in
the left lower lung. No focal airspace opacities noted. Please see full dictation for additional detail. Film personally viewed.
02/02/2024 CT abdomen/pelvis: MARKEDLY LIMITED STUDY as a result of numerous factors including marked beam hardening artifact from the patient's bilateral upper extremities, beam hardening artifact from left hip arthroplasty, lack of oral contrast
and lack of intravenous contrast. Tiny bilateral pleural effusions and bilateral lower lobe subsegmental atelectasis which obscure tiny right lower lobe pulmonary nodule seen on prior CT. Approximate 0.6 cm slightly high attenuation lesion
laterally left kidney which could represent a complex/proteinaceous cyst or solid mass, cannot be differentiated on the basis of this study without intravenous contrast, indeterminate. No intestinal obstruction or free air. Redundant sigmoid colon
with diverticulosis. See full dictation for additional detail. Film personally viewed.
[2024-02-08] MEDS: MIRALAX 17 GRAMS PO (14:15)
--- NOTE | 2024-02-08 14:45 | W.PN.UPDATE ---
Update Note
Progress Note Update
I saw and evaluated the patient. I reviewed the resident�s note and agree with findings and plan as documented in the resident�s note.
No right arm pain, discomfort.
I saw and evaluated the patient. I reviewed the resident�s note and agree with findings and plan as documented in the resident�s note.
CT T/L spine
1. No findings at CT suspicious for osteo-discitis. No abnormal paraspinal collection is identified within the limits of noncontrast CT.
2. Gallbladder dilation as above. No calcified gallstones identified. As warranted, this could be further evaluated with follow-up ultrasound.
3. Multilevel severe degenerative changes lumbar spine as described. Multilevel moderate degenerative changes thoracic spine as described. No acute fracture or malalignment.
4. Small bilateral pleural effusions with adjacent atelectasis, right greater than left.
5. Approximately 4 mm focal/nodular opacity in the left upper lobe. May be related to scarring, indeterminate. Could be further evaluated with follow-up CT chest non emergently.

septic shock -improved
Acute toxic metabolic encephalopathy -improved
Streptococcus anginosus bacteremia
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
-Patient required on/off vasopressors for first 48hrs.
-Mentation is better and low chances of meningitis/encephalitis
-Streptococcus identified as strep anginosus -susceptibility reviewed, sensitive to Rocephin - to continue till 02/17/24
-Repeat blood culture has been ordered and has been showing no growth so far.
-Liver/abd US neg.
-Discussed with ID and patient antibiotic has been changed to Unasyn
Acute hypoxemic respiratory failure -Improving
-likely due to sepsis as no PNA on CXR
-Currently on oxygen through nasal cannula, wean off as possible
DAVID - Improving
-Creatinine down to 1.3 today
-Discussed with nephrology and concern of possible episodic hypotension aggravating renal failure
-Avoid nephrotoxic medication
Euvolemic hyponatremia -resolved
-Urine na 12 and Uosm 340
-Patient with 3% Hypertonic saline
-acute drop could be due to sepsis, SIADH from back pain, adrenal insufficiency
Right UE DVT from PICC line
-Nonocclusive thrombus in right subclavian/axillary vein, bulk of clot in Basilic vein
-start patient on Eliquis 10mg BID
-will place new midline to finish remaining course of Rocephin
Chronic anemia
-No signs of active bleeding
-Ferritin 494, low serum Iron/ unable to count TSAT
-Anemia of chronic disease with RA likely as TSAT low but ferritin much higher than 100,
-Required 1 unit of blood transfusion
Chronic steroids use
-on prednisone 5mg/d at home, resumed back now
-was given solu-cortef - discontinue.
Chronic pain
-Limit narcotic use. Patient has not been using Valium at home.
Hypothyroid
-resume back on levothyroxine
rheumatoid arthritis/spinal stenosis
Chronic steroids use
-on prednisone
-hold leflunomide, MTX, sulfasalazine for now
-having pain and increasing oxycodone dose, adding 2.5mg valium PRN (on 5mg at home), monitor for sedation/confusion
Essential HTN
-resume Coreg, hypertension uncontrolled
HLD
-resume pravastatin
DVT prophylaxis--SCDs
code status -- DNR
Case discussed with ID
Discussed with dentist
Total time spent : 52mins
--- NOTE | 2024-02-08 14:50 | W.PN.NEPH.PH ---
Today's Communication / Plan
-
follow labs
Assessment/Plan
-
Assessment
Sepsis
Hypotension
Iron deficiency anemia
Thrombocytopenia
Acute kidney injury
CKD unknown stage, atrophic left kidney
Hyponatremia
Fever/strep bacteremia
Plan
sodium relatively stable at 134
Creatinine down to 1.3
UOP not recorded
BPs stable, pt reports being labile baseline
wean off IV steroid, cont chr prednisone
Source of sepsis currently uncertain:urine with Ecoli and blood times one strep: on unasyn-ID follows
labs in am
d/w pt
-
-
Date of Service: February 08, 2024
CC / HPI / ROS
-
Chief Complaint:
Hyponatremia
CKD
History of Present Illness:
Serum sodium up to 134
Hemodynamically stable now off midodrine and IV hydrocortisone
Creatinine improved to 1.3
Review of Systems:
AFebrile
nonoliguric
no cp or sob
Labs
-
Labs:
WBC 12.5 10^3/uL (4.8-10.8) H 02/08/24 09:21
RBC 2.47 10^6/uL (4.20-5.40) L 02/08/24 09:21
Hgb 8.6 g/dL (12.0-16.0) L 02/08/24 09:21
Hct 24.7 % (37.0-47.0) L 02/08/24 09:21
Plt Count 164 10^3/uL (130-400) D 02/08/24 09:21
Sodium 134 mmol/L (135-145) L 02/08/24 09:21
Potassium 4.0 mmol/L (3.5-5.1) 02/08/24 09:21
Chloride 101 mmol/L (98-107) 02/08/24 09:21
Carbon Dioxide 21 mmol/L (22-30) L 02/08/24 09:21
BUN 54 mg/dl (7-17) H 02/08/24 09:21
Creatinine 1.3 mg/dL (0.6-1.0) H 02/08/24 09:21
eGFR 39.55 02/08/24 09:21
Glucose 75 mg/dl (70-99) 02/08/24 09:21
Calcium 8.2 mg/dl (8.4-10.2) L 02/08/24 09:21
Phosphorus 3.0 mg/dl (2.5-4.5) 02/05/24 03:42
Albumin 2.4 g/dl (3.5-5.0) L 02/06/24 04:33
Physical Exam
-
Vital Signs:
Vital Signs
Temp Pulse Resp BP Pulse Ox
98.3 F 87 20 127/72 95
02/08/24 07:42 02/08/24 07:42 02/08/24 07:42 02/08/24 07:42 02/08/24 08:00
Cardiovascular:: Regular rate and rhythm
Respiratory:: Bilateral: CTA
Lung Excursion:: Normal
Abdomen:: Nontender and Soft
Extremity Edema:: None: Bilateral:
Rosa Catheter: No
[2024-02-08] MEDS: ROCEPHIN 2000 MG IV (15:35)
[2024-02-08] MEDS: STERILE WATER FOR INJECTION 20 ML IV (15:35)
[2024-02-08 15:57] VITALS: BP 120/58
[2024-02-09 00:08] VITALS: BP 126/75
[2024-02-09 06:00] VITALS: BMI 28.4
[2024-02-09] MEDS: SYNTHROID 50 MCG PO (06:03)
[2024-02-09 07:00] VITALS: BP 157/80
--- NOTE | 2024-02-09 07:47 | W.PN.HOSP.TC ---
Addendum entered and electronically signed by Juan F Young MD 02/09/24 17:10:
Adjust Diagnosis
ACUTE right upper extremity DVT
Streptococcus bacteremia in immunosuppressed patient
Addendum entered and electronically signed by Juan F Young MD 02/09/24 15:38:
I saw and evaluated the patient. I reviewed the resident�s note and agree with findings and plan as documented in the resident�s note.
Streptococcus anginosus bacteremia -source remains unclear. ID recommended IV Rocephin till 02/16 based on susceptibility data. Left arm new midline ordered. Patient to get a repeat blood culture after finishing antibiotic course and follow-up
with PCP in office.
Right arm DVT -creatinine remained stable, maintain on oral Eliquis loading therapy. Patient will not require repeat right upper extremity ultrasound in 3 months.
Back pain -patient resumed back on oral oxycodone. Diazepam dose decreased to 2.5 mg twice daily
Patient cleared to be discharged to [facility] for finishing course of antibiotic and rehab
Original Note:
Today's Communication/Plan
-
Add lisinopril for hypertension
Keep monitoring blood pressure
Check bed availability at [facility]
Monitor INR as patient is on Eliquis for thrombus at the site of central line
On discharge put a prescription for blood culture 2 weeks after the patient completes ceftriaxone course for Streptococcus anginosus bacteremia.
Assessment / Plan
Assessment / Plan

IMPRESSION
Halina Dawn, an 88/female admitted with septic shock (streptococcus anginosus bacteremia on blood cultures) requiring on/off vasopressors now off vasopressors and oxygen, is immunocompromised patient with chronic steroids/leflunomide/MTX for
rheumatoid arthritis,has severe back pain ,spinal stenosis and scoliosis(spinal stimulator placed many years ago), acute kidney injury secondary to hypotension, anemia of chronic disease and euvolemic hyponatremia.Source of sepsis is suspected to
be dental(Streptococcus anginosus bacteremia)???
ASSESSMENT AND PLAN
Sepsis/septic shock secondary to dental procedure??
Clinical sepsis; improved
-Leukocytosis
-Elevated ESR / CRP
-Fever; improved
-Patient gives history of dental cavity and temporary capping?
-Dentist contacted, superficial process??
-Repeat blood cultures to follow-up for bacteremia(no growth in 4 days)
- ID consult appreciated-
-CT thoracic and lumbar spine without contrast without evidence of osteodiscitis
- gallbladder dilation is noted,ultrasound abdomen done-normal
-antibiotic sensitivity showed ceftriaxone sensitive
-Transition Unasyn to once daily ceftriaxone, to continue through 02/17/24
-Her echocardiogram showed no vegetations on valves
-Note:Repeat blood cultures two weeks after her antibiotic course is completed.
-
Right arm swelling, secondary to clot/DVT around PICC?
Right arm doppler ultrasound showed a thrombus
FINDINGS: There is nonocclusive thrombus in the right subclavian, axillary and to a greater extent in the right basilic vein around the PICC line. No thrombus is seen in the visualized portions of the right brachial cephalic vein, and visualized
proximal antecubital fossa, limiting evaluation of thrombus is seen in the right internal jugular vein.
Take out PICC
start eliquis 10mg po bid for 7 days and then will start 5mg for next 5 days
Acute hypoxemic resp failure
-patient had sodium bicarbonate infusion on the day of infusion (02/01), stopped once acidosis resolved on 02/01.
-Improving
-patient breathing on room air
Acute kidney injury
-Creatinine down to 1.3 now
-sodium stable at 134-135
-Nephrology consult appreciated,
-keep monitoring creatinine and serum electrolytes
-Avoid nephrotoxic medication
Euvolemic hyponatremia
-Urine na 12 and Uosm 340
-Patient received 3% Hypertonic saline at Na 125 0n 02/02, stopped once within reference range
-acute drop could be due to sepsis, SIADH from back pain, adrenal insufficiency
-Na stable at 134 -135 over last 3 days
Nephrology consult appreciated
follow labs
weaned off IV hydrocortisone
Anemia of chronic disease
-No signs of active bleeding
-Patient has an autoimmune disease, could be cause of anemia
-Required 1 unit of blood transfusion on admission , hgb 7.1 on 02/02 most likely cause was sepsis
-Patient at baseline hgb now 8-9
Chronic steroids use for Rheumatoid arthritis
- continue on home prednisone 5mg/d
-tapered solu-cortef
-
Chronic back pain
-Oxycodone for moderate -severe pain
-Diazepam for muscle spasms.
-constipation related to opioids explained
-miralax added on as needed basis
spinal stimulator placed many years ago,not working for the patient,could not get more information from patient's doctor
Hypothyroid
-continue levothyroxine
rheumatoid arthritis/spinal stenosis?back pain
Chronic steroids use
-on prednisone, leflunamide, MTX, sulfasalazine(on hold as patient is being managed for sepsis)
-continue oral prednisone at home dose
Essential HTN
BP-157/80
-continue home BP medication
HLD
-resume pravastatin
manager store says bed available at [facility].
DVT proph--SCDs
code status -- DNR
.
Anticipated Discharge: 24 - 48 hours
Subjective/Interval History
-
Date of Service: February 09, 2024
Back pain,still has some discomfort. High blood pressure readings observed on her blood pressure flowsheet.
Objective Data
-
Labs:
Laboratory Results
02/09/24
06:00
WBC Pending
Hgb Pending
Hct Pending
Plt Count Pending
Sodium Pending
Potassium Pending
Chloride Pending
Carbon Dioxide Pending
BUN Pending
Creatinine Pending
Glucose Pending
Calcium Pending
Vital Signs:
Vital Signs
Temp Pulse Resp BP Pulse Ox
98.9 F 106 16 126/75 94
02/09/24 00:08 02/09/24 00:08 02/09/24 00:08 02/09/24 00:08 02/09/24 00:08
I&O
02/08/24 02/09/24 02/10/24
06:59 06:59 06:59
Intake Total 960 / 960
Balance 960 / 960
Review of Systems
-
All other systems: Reviewed and negative
Physical Exam
-
General: Well Developed, No Apparent Distress (mildly distressed because of pain), Conversant and Other (skin bruises from age and iv lines)
HEENT: Normocephalic and Atraumatic
Respiratory: Clear to Auscultation
Cardiac: Regular Rhythm and S1/S2
GI: Soft and Nontender
Genito-urinary: No Costovertebral Tender
Musculoskeletal: Edema, Right Upper Extrem (swollen and tender, thrombus at axillary, subclavian vein)
Skin: Warm and Dry
Neuro: Awake, Alert and Oriented
Hematologic / Lymphatic: No Lymphadenopathy
Psych: Calm
[2024-02-09] MEDS: LIDOCAINE 4% PATCH 1 PATCH TOPICAL (08:41)
[2024-02-09] MEDS: COREG 25 MG PO (08:42)
[2024-02-09] MEDS: ROXICODONE 10 MG PO ×2 (08:42→18:03)
[2024-02-09] MEDS: ELIQUIS 10 MG PO (08:43)
[2024-02-09] MEDS: PROTONIX 40 MG PO (08:43)
[2024-02-09] MEDS: DELTASONE 5 MG PO (08:43)
[2024-02-09 09:35] LABS: Hematocrit 25.8 % (37.0-47.0); Hemoglobin 8.8 g/dL (12.0-16.0); Mean Corp Hgb Conc. 34.1 g/dL (33.0-37.0); Mean Corpuscular Hgb 34.5 pg (27.0-31.0); Mean Corpuscular Volume 101.2 fL (81.0-99.0); Mean Platelet Volume 10.1 fL (7.4-10.4); Platelet Count 207 10^3/uL (130-400); Red Blood Cell Count 2.55 10^6/uL (4.20-5.40); Red Cell Dist. Width 13.8 % (11.5-14.5); White Blood Cell Count 13.9 10^3/uL (4.8-10.8)
[2024-02-09 09:55] VITALS: BP 140/83; PULSE 82
[2024-02-09 12:24] LABS: Blood Urea Nitrogen 48 mg/dl (7-17); Calcium 8.4 mg/dl (8.4-10.2); Carbon Dioxide 24 mmol/L (22-30); Chloride 98 mmol/L (98-107); Estimated Creatinine Clearance 29 ml/min; Glucose 92 mg/dl (70-99); Potassium 4.4 mmol/L (3.5-5.1); Sodium 133 mmol/L (135-145); eGFR 39.55
[2024-02-09 12:32] VITALS: BMI 28.4
[2024-02-09] MEDS: ROCEPHIN 2000 MG IV (14:24)
[2024-02-09] MEDS: STERILE WATER FOR INJECTION 20 ML IV (14:24)
--- NOTE | 2024-02-09 14:30 | W.PN.ID1 ---
Date of Service
Date of Service: February 09, 2024
Today's Communication
Continue abx.
Assessment / Plan
Clinical sepsis; improved
Leukocytosis
Streptococcus anginosus bacteremia
- source unclear at present
Elevated ESR / CRP
Fever; improved
Thrombocytopenia
DAVID
- improved
Hypertension
Dyslipidemia
Hypothyroidism
Spinal stenosis
Severe lumbar scoliosis
Rheumatoid arthritis
Hemorrhoids
Recommendations:
Overall, patient appears clinically improved from admission.
ECHO: no vegetations noted, although mitral valve thickened.
CT thoracic and lumbar spine without contrast without evidence of osteodiscitis or phlegmon
- gallbladder dilation is noted
Continue ceftriaxone, to continue through 02/17/24. Would check blood cultures x2 approx 2 weeks following completion of abx to assure no ongoing bacteremia.
Note PICC was placed while bacteremic and will need replacement prior to D/C. Can transition to midline if necessary.
Continue to monitor white count and temperature curve.
Continue with supportive measures.
����������������������������������������������������������
Chief Complaint
-: Leukocytosis, Clinical Sepsis and Bacteremia
Subjective / Review of Systems
Review of Systems: No Fever and No Chills
Vital Signs / Physical Exam
Vital Signs
Vital Signs
Temp Pulse Resp BP Pulse Ox
98 F 77 18 157/80 94
02/09/24 07:00 02/09/24 07:00 02/09/24 07:00 02/09/24 07:00 02/09/24 08:00
Physical Exam
Constitutional: No Acute Distress, Comfortable, Chronically Ill and Non-toxic
Eyes: No Conjunctival Hemorrhage and Sclera Anicteric
Cardiovascular: Regular Rate and S1/S2; Negative S3/S4 or Murmur
Pulmonary: Clear, Symmetric and Non Labored
Gastrointestinal: Soft, Non Tender, Non Distended and Normal Bowel Sounds
Skin: Warm and Dry; Negative Rash or Jaundice
Neurological: Awake and Alert
Psychological: Calm
Objective Data
Lab Data
Lab Results
02/09/24 09:00
02/09/24 09:00
ESR 64 mm/hour (0-20) H 02/05/24 03:42
PT 18.3 Sec (11.4-14.6) H 02/03/24 04:11
INR 1.51 02/03/24 04:11
APTT 24.4 Sec (23.4-35.0) 02/03/24 04:11
Estimated Creat Clear 29 ml/min 02/09/24 09:00
Lactic Acid Cancelled 02/03/24 06:00
Total Bilirubin 0.9 mg/dl (0.2-1.3) 02/06/24 04:33
AST 22 U/L (14-36) 02/06/24 04:33
ALT 19 U/L (0-35) 02/06/24 04:33
Alkaline Phosphatase 67 U/L (38-126) 02/06/24 04:33
C-Reactive Protein 229.40 mg/L (0.0-10.00) H 02/05/24 03:42
Most recent labs reviewed.
Micro Results:
02/03/24 23:11 Blood Culture - Final
Blood/Venous No Growth - Final Report
02/03/24 23:11 Blood Culture - Final
Blood/Venous No Growth - Final Report
02/04/24 20:37 Blood Culture - Preliminary
Blood/Venous No Growth in 4 days- Final report to follow
02/02/24 12:47 Blood Culture - Final
Blood/Venous Streptococcus anginosus
Gram Stain - Final
02/02/24 12:16 Blood Culture - Final
Blood/Venous Streptococcus anginosus
Gram Stain - Final
02/02/24 16:15 Influenza Types A & B (KENN) - Final
Nasal Swab Negative for Influenza A & B, NAAT
Negative results must be combined with clinical observations
and patient history.
Nucleic Acid Amplification test (NAAT)performed on the
[employer] platform.
Imaging:
02/04/2024 CT (T-spine, L-spine): No findings suspicious for osteodiscitis. No abnormal paraspinal collection is identified within the limits of this noncontrast CT. Gallbladder dilatation is noted. Multilevel severe degenerative changes of the
lumbar spine, as well as thoracic spine. No acute fracture or malalignment.
02/04/2024 ECHO (TTE): EF approximately 57%. Mild mitral regurgitation noted. No intracardiac mass or thrombus formation noted.
02/02/2024 CXR (portable): New right upper extremity PICC line in place. Mild cardiomegaly. Severe multilevel discogenic degenerative disease. Osteoporosis noted. Lung volumes are normal. Mild amount of scarring or subsegmental atelectasis in
the left lower lung. No focal airspace opacities noted. Please see full dictation for additional detail. Film personally viewed.
02/02/2024 CT abdomen/pelvis: MARKEDLY LIMITED STUDY as a result of numerous factors including marked beam hardening artifact from the patient's bilateral upper extremities, beam hardening artifact from left hip arthroplasty, lack of oral contrast
and lack of intravenous contrast. Tiny bilateral pleural effusions and bilateral lower lobe subsegmental atelectasis which obscure tiny right lower lobe pulmonary nodule seen on prior CT. Approximate 0.6 cm slightly high attenuation lesion
laterally left kidney which could represent a complex/proteinaceous cyst or solid mass, cannot be differentiated on the basis of this study without intravenous contrast, indeterminate. No intestinal obstruction or free air. Redundant sigmoid colon
with diverticulosis. See full dictation for additional detail. Film personally viewed.
Care Review
Plan reviewed with: Physician (Hospitalist)
[2024-02-09 14:48] VITALS: BP 155/79
--- NOTE | 2024-02-09 14:50 | CM ---
met with patient at bedside.patient has a bed today at [facility]she will need a midline placed and covid screen.transpsort scheduled for 6pm via ambulance.i did call spouse and left him a vmm.patient signed imm letter. i will fax midline
measurements to david in adm.
phone number for report is [phone] and fax number is [phone].
--- NOTE | 2024-02-09 14:58 | W.PN.NEPH.PH ---
Today's Communication / Plan
-
Patient for discharge today
Assessment/Plan
-
Assessment
Sepsis
Hypotension
Iron deficiency anemia
Thrombocytopenia
Acute kidney injury
CKD unknown stage, atrophic left kidney
Hyponatremia
Fever/strep bacteremia
Plan
sodium relatively stable at 133
Creatinine down to 1.3 (baseline)
UOP not recorded
BPs stable, pt reports being labile baseline
Lisinopril was added back for hypertension by primary team
Patient will require follow-up BMP to rehab to assure the creatinine does not jump up
Source of sepsis currently uncertain:urine with Ecoli and blood times one strep: on unasyn-ID follows
labs in am
d/w pt
-
-
Date of Service: February 09, 2024
CC / HPI / ROS
-
Chief Complaint:
Hyponatremia
CKD
History of Present Illness:
Serum sodium at 133
Hemodynamically stable now off midodrine and IV hydrocortisone
Creatinine stable at 1.3 (baseline)
Review of Systems:
AFebrile
nonoliguric
no cp or sob
Labs
-
Labs:
WBC 13.9 10^3/uL (4.8-10.8) H 02/09/24 09:00
RBC 2.55 10^6/uL (4.20-5.40) L 02/09/24 09:00
Hgb 8.8 g/dL (12.0-16.0) L 02/09/24 09:00
Hct 25.8 % (37.0-47.0) L 02/09/24 09:00
Plt Count 207 10^3/uL (130-400) D 02/09/24 09:00
Sodium 133 mmol/L (135-145) L 02/09/24 09:00
Potassium 4.4 mmol/L (3.5-5.1) 02/09/24 09:00
Chloride 98 mmol/L (98-107) 02/09/24 09:00
Carbon Dioxide 24 mmol/L (22-30) 02/09/24 09:00
BUN 48 mg/dl (7-17) H 02/09/24 09:00
Creatinine 1.3 mg/dL (0.6-1.0) H 02/09/24 09:00
eGFR 39.55 02/09/24 09:00
Glucose 92 mg/dl (70-99) 02/09/24 09:00
Calcium 8.4 mg/dl (8.4-10.2) 02/09/24 09:00
Phosphorus 3.0 mg/dl (2.5-4.5) 02/05/24 03:42
Albumin 2.4 g/dl (3.5-5.0) L 02/06/24 04:33
Physical Exam
-
Vital Signs:
Vital Signs
Temp Pulse Resp BP Pulse Ox
98 F 82 18 155/79 93
02/09/24 14:48 02/09/24 14:48 02/09/24 14:48 02/09/24 14:48 02/09/24 14:48
Cardiovascular:: Regular rate and rhythm
Respiratory:: Bilateral: CTA
Lung Excursion:: Normal
Abdomen:: Nontender and Soft
Extremity Edema:: None: Bilateral:
Rosa Catheter: No
--- NOTE | 2024-02-09 15:06 | W.DCSUMMARY ---
Discharge Summary
Discharge Data
Date of Admission: 02/02/24
Date of Discharge: 02/09/24
-
Pending Results: No
Hospital Course
Patient presented in septic shock with metabolic acidosis along with presumed toxic metabolic encephalopathy from infection,source of infection was unclear. Chest x-ray and CT scan were without any obvious source, possible UTI was ruled out with
urine analysis. Patient remained on and off vasopressors for the first 48 hours and then was started on stress dose of steroids which helped her maintain her blood pressure.
She was admitted to ICU and was empirically started on Zosyn and vancomycin. Patient's blood cultures came back positive for Streptococcus anginosus. Patient had minor dental procedure 1 month back that was less likely to be associated with the
bacteremia. The discitis was ruled out by CT scan of the spine. An infectious disease consult was made, who changed the antibiotic to ceftriaxone based on sensitivities. Patient had an episode of DVT/thrombus at the site of the central line that
was placed for administration of the antibiotics. The catheter was removed and she was started on Eliquis 10 mg twice daily for 10 days followed by 5 mg dose for another 5 days.
She also had an acute kidney injury possibly from hypotension associated with septic shock. Nephrology consult was appreciated who kept monitoring patient's renal function and sodium. Creatinine came down to 1.3 over the course of 4 days with
fluid resuscitation of the patient.
Patient's blood culture was monitored for 4 days that showed no growth.
Patient has a history of chronic back pain and had a spinal stimulator in place many years ago. She takes opioids and diazepam for pain relief
Patient encouraged by PT/OT to ambulate and is able to walk a few steps to reach the bedside commode.
Discharge Plan
-
Patient Disposition: Longterm/SNF
Discharge Diagnosis/Procedures: Septic shock from streptococcus anginosus bacteremia, Right arm DVT, Hypoxic resp failure, DAVID
Condition: Fair
Diet: Regular
Activity: As tolerated
Driving Restrictions: No driving
Bathing Restrictions: OK to Shower
Blood Work: Repeat blood culture after finishing abx
Referrals:
Eron Lacy MD [Active] - in three to four weeks
Abhi Keene MD [Family Provider] - in one week
Prescriptions:
New
Eliquis 5 mg Tablet
See Rx Instructions .ROUTE .COMPLEX Qty: 30 0RF
Rx Instructions:
Take 2 tablets twice daily till 10 Evening THEN
Take 1 tablet twice daily for maintenance
ceftriaxone 2 gram Recon Soln
2,000 mg IV Q24H Qty: 10 0RF
Rx Instructions:
Last dose 02/17/24
diazepam 5 mg tablet
2.5 mg PO BID PRN (Reason: Spasm) Qty: 10 0RF
oxycodone 10 mg tablet
10 mg PO Q8H PRN (Reason: Pain) Qty: 10 0RF
Rx Instructions:
Full tablet for sev pain and half tablet for mod pain
Continued
carvedilol 25 mg Tablet
25 mg PO BID
levothyroxine 50 mcg Tablet
50 mcg PO DAILY
pravastatin 20 mg Tablet
20 mg PO DAILY
lisinopril 20 mg Tablet
20 mg PO BID
furosemide 40 mg Tablet
40 mg PO DAILY
prednisone 5 mg Tablet
5 mg PO DAILY 30 Days Qty: 30 0RF
ascorbic acid (vitamin C) [Vitamin C] 1,000 mg Tablet
1,000 mg PO DAILY
omeprazole 20 mg Capsule,Delayed Release(Dr/Ec)
20 mg PO DAILY
folic acid 1 mg Tablet
1 mg PO DAILY
Caltrate 600 plus D 600 mg-20 mcg (800 unit) Tablet,Chewable
1 tab PO DAILY
biotin 1,000 mcg Tablet,Chewable
1,000 mcg PO DAILY
aspirin 81 mg Capsule
162 mg PO DAILY
acetaminophen 325 mg Tablet
650 mg PO Q4HPRN PRN (Reason: mild pain)
acetaminophen 500 mg Tablet
1,000 mg PO HS
magnesium hydroxide [Milk of Magnesia] 400 mg/5 mL Suspension
30 ml PO DAILYPRN PRN (Reason: if no bm x 2 days)
bisacodyl [Dulcolax (bisacodyl)] 10 mg Suppository
10 mg TX DAILYPRN PRN (Reason: if no bm in 8hrs after MOM)
Fleet Enema 19-7 gram/118 mL Enema
118 ml TX DAILYPRN PRN (Reason: if no bm 8 hrs after suppository)
lidocaine-menthol [Icy Hot Patch (lido-menthol)] 4-1 % Adhesive Patch,Medicated
1 patch TOPICAL DAILY
Rx Instructions:
apply to lower back
Held
sulfasalazine 500 mg Tablet
500 mg PO TID
Hold Instructions: Resume on 02/21/24. Resume only after repeat blood culture is clear.
leflunomide 20 mg Tablet
20 mg PO DAILY
Hold Instructions: Resume on 02/21/24. Resume only after repeat blood culture is clear.
methotrexate sodium 2.5 mg Tablet
10 mg PO TH
Hold Instructions: Resume on 02/21/24. Resume only after repeat blood culture is clear.
Discontinued
oxycodone 5 mg Tablet
5 mg PO Q8HPRN PRN (Reason: moderate-severe pain)
Patient Comments:
11/14/2021: last filled 09/12/21, 90 tabs for 30 days from [facility]
terazosin 1 mg Capsule
1 mg PO HS
oxycodone 10 mg Tablet
10 mg PO DAILY
diazepam [Valium] 5 mg tablet
5 mg PO BIDPRN PRN (Reason: muscle spasm)
Discharge Orders:
Discharge Patient (As Directed); Ordered 02/09/24
Ordered By: Juan F Young
Discharge Date and Time
Print Language: MALTESE
[2024-02-09 15:10] LABS: COVID-19 Antigen Negative (Negative)
--- NOTE | 2024-02-09 15:47 | VATNOTE ---
10/ LEFT SL 4FR MIDLINE placed under sterile technique, TCL 15cm ECL0 UAC 32cm. biopatch applied. To be redressed every Wednesday
--- NOTE | 2024-02-09 16:07 | PN.CDI ---
CDI
- -
CDI:
Physician Documentation Request
Admit Date: 02/02/24 15:37
Dear Doctor Jj,
Patient admitted for sepsis.
02/08 Hospitalist PN: 'Right arm DVT -creatinine remained stable, maintain on oral Eliquis loading therapy. Patient will not require repeat right upper extremity ultrasound in 3 months...Right arm swelling, secondary to clot/DVT around PICC?'
Clarify which of the following accurately represents the acuity of the DVT. Possible options might include:
____ Acute
____ Chronic
____ Other
Use of terms such as suspected, likely, concern for, or probable (associated with a specific diagnosis that is being evaluated, monitored, or treated as if it exists) are acceptable and can be coded in the inpatient setting, when documented at the
time of discharge.
Thank you,
Asiya Rod RN, BSN
CDI Specialist
Available via [place] text
Please use your independent medical judgment in providing your response.
[2024-02-09] MEDS: FLUAD (65 yr+) 2024-2025 FORMULA 0.5 ML IM (17:06)
== END 2024-02-09 19:33 | DRG 871 ==
LOC: 4 EAST ACU 15:37
PROVIDERS: Nurse Practitioner Family; Physician Assistant; Specialist; Student in an Organized Health Care Education/Training Program; ADMITTING PHYSICIAN Internal Medicine; ATTENDING PHYSICIAN Hospitalist; CONSULT PHYSICIAN Internal Medicine Critical Care Medicine; CONSULT PHYSICIAN Specialist; EMERGENCY PHYSICIAN Emergency Medicine; FAMILY PHYSICIAN Family Medicine; OTHER PHYSICIAN Internal Medicine Infectious Disease
PROC: 30233N1 Transfusion of Nonautologous Red Blood Cells into Peripheral Vein, Percutaneous Approach (ICD-10-PCS; 2024-02-03)
DX: A40.8 Other streptococcal sepsis (principal); G92.8 Other toxic encephalopathy; R65.21 Severe sepsis with septic shock; J96.91 Respiratory failure, unspecified with hypoxia; E87.1 Hypo-osmolality and hyponatremia; N17.9 Acute kidney failure, unspecified; E87.4 Mixed disorder of acid-base balance; E87.20 Acidosis, unspecified; I82.621 Acute embolism and thrombosis of deep veins of right upper extremity; D50.9 Iron deficiency anemia, unspecified; D69.6 Thrombocytopenia, unspecified; I12.9 Hypertensive chronic kidney disease with stage 1 through stage 4 chronic kidney disease, or unspecified chronic kidney disease; N18.9 Chronic kidney disease, unspecified; E03.9 Hypothyroidism, unspecified; Z11.52 Encounter for screening for COVID-19
CPT/HCPCS: 51701; 71045; 71046; 72128; 72131; 74176; 76705; 80048; 80053; 81003; 82248; 82607; 82728; 82805; 82962; 83010; 83540; 83550; 83605; 83735; 83930; 83935; 84100; 84300; 84443; 85025; 85027; 85045; 85610; 85652; 85730; 86140; 86850; 86900; 86901; 86920; 87040; 87077; 87186; 87205; 87502; 87811; 90662; 93005; 93306; 93971; 94760; 96365; 96375; 97110; 97163; 97167; 97530; 97535; 99285; G0008; P9016

== ENCOUNTER 2024-08-01 13:27 | Emergency (ER) | payer OTHER, SELFPAY ==
[2024-08-01 14:24] LABS: % Basophils 0.8 % (0-2); % Eosinophils 1.2 % (0-6); % Immature Granulocytes 0.4 % (0-0.5); % Lymphocytes 12.2 % (20.5-51.1); % Monocytes 7.5 % (1.7-9.3); % Neutrophils 77.9 % (42.2-75.2); Absolute Eosinophils 0.1 10^3/uL (0-0.7); Absolute Lymphocytes 0.6 10^3/uL (1.2-3.4); Absolute Monocytes 0.4 10^3/uL (0.1-0.6); Absolute Neutrophils 3.8 10^3/uL (1.4-6.5); Hematocrit 27.9 % (37.0-47.0); Hemoglobin 9.3 g/dL (12.0-16.0); Mean Corp Hgb Conc. 33.3 g/dL (33.0-37.0); Mean Corpuscular Hgb 36.3 pg (27.0-31.0); Mean Platelet Volume 11.2 fL (7.4-10.4); Nucleated Red Blood Cells % 0 %; Platelet Count 154 10^3/uL (130-400); Red Blood Cell Count 2.56 10^6/uL (4.20-5.40); Red Cell Dist. Width 13.4 % (11.5-14.5); White Blood Cell Count 4.8 10^3/uL (4.8-10.8)
[2024-08-01 14:37] LABS: ALT (SGPT) 20 U/L (0-35); AST (SGOT) 22 U/L (14-36); Albumin 4.6 g/dl (3.5-5.0); Alkaline Phosphatase 42 U/L (38-126); Blood Urea Nitrogen 77 mg/dl (7-17); Carbon Dioxide 24 mmol/L (22-30); Chloride 103 mmol/L (98-107); Glucose 133 mg/dl (70-99); Potassium 3.9 mmol/L (3.5-5.1); Sodium 140 mmol/L (135-145); Total Bilirubin 0.7 mg/dl (0.2-1.3); Total Protein 6.4 g/dl (6.3-8.2)
--- NOTE | 2024-08-01 15:37 | ED.GENMED ---
History of Present Illness
General
Chief Complaint: Abnormal Lab Value
Source: patient
Exam Limitations: none
Time Seen by Provider: 08/01/24 15:22
Nursing documentation reviewed up to this point in time: agreed with
History of Present Illness
History of Present Illness:
89-year-old female past medical history of A-fib currently on Eliquis, hypertension hyperlipidemia presenting to the emergency department today with concerns of elevated kidney function and anemia as an outpatient. Denies any current symptoms.
Past History
Past History
ED Past Medical History: HTN, Hypercholesterolemia, Hypothyroidism and Other (Spinal stenosis and scoliosis)
ED Past Surgical History: Appendectomy, Gynecological (Hysterectomy) and Orthopedic (Bilateral knee replacement, left hip replacement, spinal stimulator)
Social History
Tobacco: Non-smoker
Alcohol: None
Drug: None
Personal:
Living: with family
Employment: Retired
Review of Systems
Review of Systems
Allergies reviewed?: Yes
All Other Systems: ROS reviewed and negative except as documented in HPI and ROS
Phy Exam
Physical Exam
Physical Exam:
GENERAL: Alert , in no apparent distress
EYE: pupils equal and reactive
NECK: Supple, no significant adenopathy.
ENT: o/p clr, mmm.
CARDIAC: Regular rate and rhythm .
LUNGS: Clear breath sounds bilaterally, no acute respiratory distress, no wheezes/rales/rhonchi
ABDOMEN: Soft, without focal tenderness, no r/g, no cvat
NEUROLOGICAL: Alert and oriented, no focal neuro deficits
SKIN: Warm and dry, skin intact.
MUSCULOSKELETAL: No edema, well perfused.
PSYCH: Normal and appropriate interaction.
Course
Orders/Labs/Results
Orders:
Orders
08/01/24 13:40
Type And Crossmatch [Type+Screen] Urgent
Complete Blood Count/With Diff Urgent
Comprehensive Metabolic Panel Urgent
Abnormal Lab Results
08/01/24
13:40
RBC 2.56 L 10^6/uL
(4.20-5.40)
Hgb 9.3 L g/dL
(12.0-16.0)
Hct 27.9 L %
(37.0-47.0)
MCV 109.0 H fL
(81.0-99.0)
MCH 36.3 H pg
(27.0-31.0)
MPV 11.2 H fL
(7.4-10.4)
Absolute Lymphs (auto) 0.6 L 10^3/uL
(1.2-3.4)
Neutrophils % 77.9 H %
(42.2-75.2)
Lymphocytes % 12.2 L %
(20.5-51.1)
BUN 77 H mg/dl
(7-17)
Creatinine 1.8 H mg/dL
(0.6-1.0)
Glucose 133 H mg/dl
(70-99)
08/01/24 13:40
08/01/24 13:40
MDM/Problems Addressed
MDM/Problems Addressed:
89-year-old female presenting to the emergency department with concerns of abnormal outpatient labs. Here labs were obtained hemoglobin 9.3 which is above patient's baseline. We have multiple labs over the last few years. Additionally patient was
found to have a creatinine of 1.8 which is not far from patient's baseline typically in the mid to high ones. Patient vies to stay hydrated and follow-up closely as an outpatient. Return precautions given.
*Critical Care Note
Total Time (30-74mins, 75-104mins- exclusive of procedures): Not Applicable
ED Attending Note
-
Portions of this chart may have been created with voice recognition software.� Occasional wrong word or��sound alike� substitutions may have occurred due to the inherent limitations of voice recognition software.
Discharge Plan
Departure
Patient Disposition: Home (Routine Discharge)
Date of Disposition: 08/01/24
Time of Disposition: 15:38
Patient with high blood pressure during this ER visit?: No
Condition: Good
Covid-19: Not Applicable
Discharge Problem:
CKD (chronic kidney disease), Anemia
Prescriptions:
No Action
carvedilol 25 mg Tablet
25 mg PO BID
sulfasalazine 500 mg Tablet
500 mg PO TID
leflunomide 20 mg Tablet
20 mg PO DAILY
levothyroxine 50 mcg Tablet
50 mcg PO DAILY
pravastatin 20 mg Tablet
20 mg PO DAILY
lisinopril 20 mg Tablet
20 mg PO BID
furosemide 40 mg Tablet
40 mg PO DAILY
prednisone 5 mg Tablet
5 mg PO DAILY 30 Days Qty: 30 0RF
ascorbic acid (vitamin C) [Vitamin C] 1,000 mg Tablet
1,000 mg PO DAILY
omeprazole 20 mg Capsule,Delayed Release(Dr/Ec)
20 mg PO DAILY
folic acid 1 mg Tablet
1 mg PO DAILY
Caltrate 600 plus D 600 mg-20 mcg (800 unit) Tablet,Chewable
1 tab PO DAILY
biotin 1,000 mcg Tablet,Chewable
1,000 mcg PO DAILY
aspirin 81 mg Capsule
162 mg PO DAILY
acetaminophen 325 mg Tablet
650 mg PO Q4HPRN PRN (Reason: mild pain)
acetaminophen 500 mg Tablet
1,000 mg PO HS
magnesium hydroxide [Milk of Magnesia] 400 mg/5 mL Suspension
30 ml PO DAILYPRN PRN (Reason: if no bm x 2 days)
bisacodyl [Dulcolax (bisacodyl)] 10 mg Suppository
10 mg WA DAILYPRN PRN (Reason: if no bm in 8hrs after MOM)
Fleet Enema 19-7 gram/118 mL Enema
118 ml WA DAILYPRN PRN (Reason: if no bm 8 hrs after suppository)
lidocaine-menthol [Icy Hot Patch (lido-menthol)] 4-1 % Adhesive Patch,Medicated
1 patch TOPICAL DAILY
Rx Instructions:
apply to lower back
methotrexate sodium 2.5 mg Tablet
10 mg PO TH
Eliquis 5 mg Tablet
See Rx Instructions .ROUTE .COMPLEX Qty: 30 0RF
Rx Instructions:
Take 2 tablets twice daily till 02/13 Evening THEN
Take 1 tablet twice daily for maintenance
ceftriaxone 2 gram Recon Soln
2,000 mg IV Q24H Qty: 10 0RF
Rx Instructions:
Last dose 02/17/24
diazepam 5 mg tablet
2.5 mg PO BID PRN (Reason: Spasm) Qty: 10 0RF
oxycodone 10 mg tablet
10 mg PO Q8H PRN (Reason: Pain) Qty: 10 0RF
Rx Instructions:
Full tablet for sev pain and half tablet for mod pain
Activity Restrictions/Additional Instructions:
You were here due to outpatient concerning labs. Here your hemoglobin and renal function were close to your baseline. Please follow-up as an outpatient. Return for any worsening, new or concerning symptoms.
Interventions
Interventions:
*Risk Screen - Suicide Last Done: 08/01/24 13:29
*General Assessment Last Done: 08/01/24 13:29
*Neglect/Abuse Screening Last Done: 08/01/24 15:47
*ED- Fall Risk Assessment Last Done: 08/01/24 15:47
*ED COVID-19 Vaccine History Last Done: 08/01/24 15:47
*Nursing Disposition Last Done: 08/01/24 15:47
Discharge Date and Time
Discharge Date/Time: 08/01/24 15:57
Print Language: [place]
== END 2024-08-01 15:57 | disposition home or self-care (01) ==
LOC: EMR 13:27
PROVIDERS: Emergency Medicine; EMERGENCY PHYSICIAN Emergency Medicine; FAMILY PHYSICIAN Family Medicine
DX: I48.91 Unspecified atrial fibrillation (principal); I12.9 Hypertensive chronic kidney disease with stage 1 through stage 4 chronic kidney disease, or unspecified chronic kidney disease; N18.9 Chronic kidney disease, unspecified; D64.9 Anemia, unspecified; Z79.01 Long term (current) use of anticoagulants
CPT/HCPCS: 99283; 80053; 85025; 86850; 86900; 86901

== ENCOUNTER → 2024-09-01 12:17 | Outpatient (REF) | payer OTHER, SELFPAY | LOC: RAD 12:17 | PROVIDERS: ATTENDING PHYSICIAN Internal Medicine Nephrology; FAMILY PHYSICIAN Family Medicine | DX: N18.4 Chronic kidney disease, stage 4 (severe) (principal); I70.1 Atherosclerosis of renal artery | CPT/HCPCS: 76775 ==